=== PATIENT | female | born 1935 | race Caucasian/White ===

== ENCOUNTER 2016-12-16 21:12 | Observation (INO) | payer MEDICARE, MEDICAID ==
[2016-12-16 21:49] LABS: Hematocrit 37 % (35-47); Hemoglobin 12.6 g/dl (12.0-16.0); Mean Corpuscular HGB Conc 34 g/dl (31-36); Mean Corpuscular Hemoglobin 31 pg (27-31); Mean Corpuscular Volume 92 fL (80-97); Mean Platelet Volume 8 um3 (7.4-10.4); Red Blood Count 4.03 10^6/ul (4.0-5.4); Red Cell Distribution Width 14 % (10.5-15); White Blood Count 9.9 10^3/ul (3.5-10.8)
[2016-12-16] MEDS ORDERED: Morphine INJ* 4 MG/ML 1 ML SYRINGE IV ONE (22:00)
[2016-12-16] MEDS ORDERED: NS 0.9% 1000 ML* 1,000 ML IV ONE (22:00)
[2016-12-16] MEDS ORDERED: Ondansetron INJ* 2 MG/ML VIAL IV ONE (22:00)
[2016-12-16] MEDS ORDERED: Acetaminophen TAB* 325 MG PO ONE (22:00)
[2016-12-16 22:03] LABS: ALT 9 U/L (7-52); AST 22 U/L (13-39); Albumin 4.1 g/dL (3.2-5.2); Alkaline Phosphatase 73 U/L (34-104); Anion Gap 9 mmol/L (2-11); Blood Urea Nitrogen 20 mg/dL (6-24); CO2 Carbon Dioxide 28 mmol/L (22-32); Calcium 9.4 mg/dL (8.6-10.3); Chloride 100 mmol/L (101-111); EGFR African American 105.5 (>60); EGFR Non-African American 82.1 (>60); Globulin 3.4 g/dL (2-4); Glucose 102 mg/dL (70-100); Potassium 4.2 mmol/L (3.5-5.0); Sodium 137 mmol/L (133-145); Total Protein 7.5 g/dL (6.4-8.9)
[2016-12-16 22:04] LABS: Troponin I 0.03 ng/mL (<0.04)
--- NOTE | 2016-12-16 22:15 | RAD ---
INDICATION: Syncope COMPARISON: None TECHNIQUE: An AP portable view obtained at 2205 hours is submitted. FINDINGS: Bones/Soft Tissues: There are no acute bony findings. Cardiomediastinal: The cardiomediastinal silhouette is normal. Lungs: There is a right basilar infiltrate or atelectasis. There may be minimal atelectatic change left lung base.. Pleura: There are no pleural effusions. Other: None IMPRESSION: MILD BIBASILAR LUNG CHANGES RIGHT GREATER LEFT WITH A SUSPECTED SMALL RIGHT-SIDED EFFUSION.
[2016-12-16 22:18] LABS: Lipase < 10 U/L (11.0-82.0)
[2016-12-16] MEDS ORDERED: Iohexol 350* (CONTRAST) 500 ML MDV IV ONE (22:30)
--- NOTE | 2016-12-16 22:43 | RAD ---
INDICATION: Syncope COMPARISON: None TECHNIQUE: Noncontrast axial source images were acquired from the skull base to the vertex. FINDINGS: Ventricles/sulci: The ventricles and cisterns are normal in size and configuration for age. Brain parenchyma: There is no focal parenchymal finding, evidence of intracranial mass, or intracranial mass effect. Intracranial hemorrhage:None. Extra-axial spaces: There are no abnormal extra axial fluid collections or evidence of extra-axial mass. Calvarium: There is no calvarial fracture or other calvarial abnormality. Scalp: There is no evidence of scalp or extracalvarial soft tissue abnormality. Paranasal sinuses/mastoid: There is right-sided sphenoid sinusitis. There is opacification of one of the right ethmoid air cells.. Other: None. IMPRESSION: NO ACUTE INTRACRANIAL FINDINGS
--- NOTE | 2016-12-16 23:06 | RAD ---
INDICATION: Chest and back pain. Evaluate aorta COMPARISON: None TECHNIQUE: Axial source images were obtained from the thoracic inlet to the symphysis pubis following administration of oral and intravenous contrast. 1 mL Omnipaque 300 was utilized. Coronal and sagittal reconstructed images were acquired. CHEST FINDINGS: Neck/thyroid: The visualized neck to include the thyroid appear normal. Chest wall: There are no acute abnormalities of the bony thorax or chest wall. There is no supraclavicular, infraclavicular, or axillary lymphadenopathy. Lungs : There are no pulmonary parenchymal masses or infiltrates. The pulmonary interstitium appears normal. There are no endobronchial lesions. Cardiomediastinal structures: The heart is normal in size. There is no pericardial effusion. There is no evidence of aortic aneurysm or dissection. The pulmonary vessels appear normal. There is no evidence of pulmonary embolism. Evaluation of the lower lobes, however, somewhat limited due to breathing motion artifact There is no mediastinal or hilar adenopathy. The esophagus appears normal. Pleura : There are no pleural-based masses or effusions. ABDOMINAL/PELVIC FINDINGS: Liver: The liver is normal in size. There are no masses identified on early arterial phase enhanced images. There is no ductal dilatation. Gallbladder: There are no calcified gallstones. There is no evidence of wall thickening or pericholecystic fluid. Spleen: The spleen is normal in size. The early phase enhancement pattern is normal There are no masses. Pancreas: There is no evidence of pancreatic mass or ductal dilatation. Adrenal glands: There is no evidence of adrenal mass. Kidneys: The kidneys are normal in size and position. There are prompt nephrograms and there is prompt excretion bilaterally. There are bilateral parapelvic cysts and there is a left-sided renal cortical cysts measuring 3.3 cm. There is no evidence of nephrolithiasis. Adenopathy: There is no evidence of adenopathy by size criteria. Fluid collections: There are no free or localized fluid collections. Vessels: The abdominal aorta is tortuous. There are mild intimal calcifications. There is no evidence of aneurysm or dissection. The visceral branches arise satisfactorily. The iliac vessels are normal in caliber. The IVC is unremarkable GI tract: There are no acute CT bowel findings. There is no obstruction. The upper GI tract is unremarkable. There are moderate diverticula of the sigmoid colon but there is no CT evidence of acute diverticulitis. The appendix appears normal. Pelvic organs: The uterus and adnexa appear normal Bladder: There are no bladder masses. Abdominal and pelvic soft tissues: The extraperitoneal abdominal and pelvic soft tissues appear normal.. Osseous structures: There are no acute osseous findings. IMPRESSION: 1. No CT evidence of thoracoabdominal aneurysm or dissection. 2. Bilateral parapelvic cysts and left-sided renal cortical cysts. 3. Scattered diverticula sigmoid colon but no CT evidence of acute diverticulitis
[2016-12-17 00:19] LABS: Urine Bilirubin Negative (Negative); Urine Glucose Negative (Negative); Urine Nitrite Negative (Negative)
[2016-12-17] MEDS ORDERED: Meclizine TAB* 12.5 MG PO PRN (01:50)
[2016-12-17] MEDS ORDERED: Diazepam TAB(*) 5 MG PO PRN (01:50)
[2016-12-17] MEDS: Ondansetron INJ* 2 MG/ML VIAL IV PRN ×3 (03:38→20:31)
[2016-12-17] MEDS: Heparin VIAL(*) 5000 UNITS/ML VIAL (FIVE THOUSAND) SUBCUT SCH ×3 (05:31→20:35)
--- NOTE | 2016-12-17 05:47 | ED ---
I, Oh,Soohyuniun, scribed for Wesley Pringle MD on 12/16/16 at 2157 . HPI Chest Pain - HPI Summary HPI Summary: HPI limited due to language barrier. MANISHA Manzo serving as interpretor at bedside. THis 81 y/o female presents to ED for a syncopal episode yesterday and constant chest tightness. Pt was ambulating to bathroom when she experienced lightheaded dizziness last night 2300 PM. Pt woke up on bathroom floor with vomit on it around 0200 AM. Pt proceeded to n/v x2 again after ambulating back to bed, and pt stayed nauseous for the rest of today. Pt also reports constant, 10/10 chest tightness that radiates to LUE armpit and back. Arm movement makes the chest pain worse. PMHx includes HTN, HLD, and Parkinson Dz. Pt is currently on omeprazole, spironolactone, nitro, diazepam, ASA, amlodipine, trazodone, ramipril, and meclizine. Primary care involves Dr. Reese. Plan of care involving possible admission, CT Brain, chest is discussed with pt (via airport driver) and family members present at bedside, and they are agreeable at this time. - History of Current Complaint Chief Complaint: EDSyncope Time Seen by Provider: 12/16/16 21:33 Hx Obtained From: Patient, Family/Archival Records Clerk, Private Watchman - MANISHA Manzo. Timing: Constant Pain Intensity: 10 Pain Scale Used: 0-10 Numeric Chest Pain Location: Diffuse Chest Pain Radiates: Yes Chest Pain Radiates To:: Back, Arm Character: Tightness Aggravating Factor(s): Movement - Arm movement Alleviating Factor(s): Nothing Associated Signs and Symptoms: Positive: Chest Pain, Dizziness, Nausea, Vomiting. Negative: Fever - Allergy/Home Medications Allergies/Adverse Reactions: Allergies Allergy/AdvReac Type Severity Reaction Status Date / Time No Known Allergies Allergy Verified 12/17/16 01:02 Home Medications: Home Medications Aspirin Low Dose CHEW TAB* [Aspirin Low Dose TAB*] 81 mg PO DAILY 12/17/16 [ History Confirmed 12/17/16] Diazepam TAB(*) [Valium TAB(*)] 5 mg PO Q6H PRN 12/17/16 [History Confirmed ] Meclizine TAB* [Antivert 12.5 TAB*] 25 mg PO TID PRN 12/17/16 [History Confirmed 12/17/16] MinoXIDil TAB* [Loniten TAB*] 40 mg PO BID 12/17/16 [History Confirmed 12/17/16] Omeprazole CAP* [Prilosec CAP* 20 MG] 40 mg PO BID 12/17/16 [History Confirmed 12/17/16] Ramipril CAP* [Altace CAP*] 10 mg PO BID 12/17/16 [History Confirmed 12/17/16] Spironolactone TAB* [Aldactone TAB*] 50 mg PO DAILY 12/17/16 [History Confirmed 12/17/16] amLODIPine TAB* [Norvasc 5 mg TAB*] 10 mg PO BID 12/17/16 [History Confirmed ] traZODone TAB* [Desyrel TAB*] 50 mg PO BEDTIME 12/17/16 [History Confirmed 12/17] PMH/Surg Hx/FS Hx/Imm Hx Cardiovascular History: Reports: Hx Hypercholesterolemia, Hx Hypertension Psychiatric History: Reports: Other Psychiatric Issues/Disorders - Parkinson's disease Infectious Disease History: No Infectious Disease History: Denies: Traveled Outside the [place] in Last 30 Days - Family History Known Family History: Negative: Cardiac Disease, Hypertension, Diabetes - Social History Lives: With Family Alcohol Use: None Hx Substance Use: No Substance Use Type: Reports: None Hx Tobacco Use: No Smoking Status (MU): Never Smoked Tobacco Review of Systems Negative: Fever Positive: Chest Pain - chest tightness Positive: Vomiting, Nausea. Negative: Abdominal Pain Negative: dysuria, hematuria Negative: Arthralgia Negative: Rash Neurological: Other - Positive for dizziness Positive: Syncope. Negative: Headache Negative: Anxious, Depressed All Other Systems Reviewed And Are Negative: Yes Physical Exam - Summary Physical Exam Summary: Constitutional: Well-developed, Well-nourished, Alert. (-) Distressed Skin: Warm, Dry HENT: Normocephalic; Atraumatic Eyes: Conjunctiva normal Neck: Musculoskeletal ROM normal neck. (-) JVD, (-) Stridor, (-) Tracheal deviation Cardio: Rhythm regular, rate normal, Heart sounds normal; Intact distal pulses; The pedal pulses are 2+ and symmetric. Radial pulses are 2+ and symmetric. (-) Murmur Pulmonary/Chest wall: Effort normal. (-) Respiratory distress, (+) Crackle, left lower Abd: Soft, (-) Tenderness, (-) Distension, (-) Guarding, (-) Rebound Musculoskeletal: (-) Edema Lymph: (-) Cervical adenopathy Neuro: Alert, Oriented x3, fine resting tremor at rest. Psych: Mood and affect Normal Triage Information Reviewed: Yes Vital Signs On Initial Exam: Initial Vitals Temp Pulse Resp BP Pulse Ox 99.9 F 88 18 153/60 97 12/16/16 21:16 12/16/16 21:16 12/16/16 21:16 12/16/16 21:16 12/16/16 21:16 Vital Signs Reviewed: Yes Diagnostics - Vital Signs Vital Signs Temp Pulse Resp BP Pulse Ox 12/16/16 21:16 99.9 F 88 18 153/60 97 - Laboratory Result Diagrams: 12/16/16 21:39 12/16/16 21:39 Lab Statement: Any lab studies that have been ordered have been reviewed, and results considered in the medical decision making process. - Radiology CXR Xray Interpretation: Positive (See Comments) - MILD BIBASILAR LUNG CHANGES RIGHT GREATER LEFT WITH A SUSPECTED SMALL RIGHT-SIDED EFFUSION. Radiology Interpretation Completed By: Radiologist - CT CTA Chest/Ab/P CT Interpretation: Positive (See Comments) - 1. No CT evidence of thoracoabdominal aneurysm or dissection. 2. Bilateral parapelvic cysts and left -sided renal cortical cysts. 3. Scattered diverticula sigmoid colon but no CT evidence of acute diverticulitis CT Interpretation Completed By: Radiologist Brain CT Interpretation: No Acute Changes CT Interpretation Completed By: Radiologist - EKG 2127 Cardiac Rate: NL - 93 bpm EKG Rhythm: Sinus Rhythm ST Segment: Normal Re-Evaluation - Re-Evaluation First Eval Re-Evaluation Time: 01:18 Comment: in room to update pt and family members on lab results, imaging results, and UA. Plan of care involving admission is discussed. Chest Pain Course/Dx - Course Assessment/Plan: This 81 y/o female presents to ED for a syncopal episode that started 2300 PM last night and lasted until 0100 AM this morning. Since then pt reports 2x n/v and dizziness. Pt also reports CP. CXR indicates negative in ED. Other CT readings are benign. CP can be due to esophagitis. Elevated temperature indicates possible viral illness. Acute Coronary syndrome considered and r/o. - Diagnoses Provider Diagnoses: Syncope, Chest pain, Nausea with vomiting, unspecified - Provider Notifications Discussed Care Of Patient With: Dr. Bush (Hospitalist) at 0114 AM Time Discussed With Above Provider: 01:14 Instructed by Provider To: Admit As Inpatient Discharge - Discharge Plan Condition: Stable Disposition: ADMITTED TO [facility] Referrals: Belem Reese MD [Primary Care Provider] - The documentation as recorded by the Joey zambrano Soohyun accurately reflects the service I personally performed and the decisions made by , Wesley Pringle MD.
--- NOTE | 2016-12-17 06:15 | HP ---
HISTORY AND PHYSICAL: DATE OF ADMISSION: 12/17/16 PRIMARY CARE PROVIDER: Dr. Reese. BOOT REPAIRER: Dr. Mock. CHIEF COMPLAINT: Syncope and chest pain. HISTORY OF PRESENT ILLNESS: Ms. Pate is a 81-year-old primarily Togolese- speaking female, who has a history of very difficult to control hypertension, possibly Parkinson's disease, who presents to the emergency room with complaints of syncope and chest pain. The bulk of the history is obtained via translation from the patient's [id number]. The patient reportedly got up to go to the bathroom at approximately 11 p.m. on the evening of 12/15/16. The patient stated that she needed to hold herself up at the sink. The next thing she remembers is waking up at approximately 2 a.m. with vomit all around her. The patient also noted at that time that she had significant chest pain that was felt across her lower ribs like a band. The patient had no associated shortness of breath or sweating. The patient was ultimately able to get herself up off the floor and into bed. The patient continued to have chest pain. The patient, after getting into bed, continued to have vomiting. The patient carries a history of vertigo and very often will feel dizzy with turning her head in certain directions. The patient stated that she did not feel well on the evening of 12/15/16. She has not vomited since the refrigeration engineering teacher of 12/16/16 PAST MEDICAL HISTORY: 1. Hypertension. 2. Parkinson's. 3. Vertigo. PAST SURGICAL HISTORY: None. ALLERGIES: None. MEDICATIONS: 1. Spironolactone 50 mg p.o. daily. 2. Amlodipine 10 mg p.o. b.i.d. 3. Valium 5 mg p.o. q.6 hours p.r.n. vertigo. 4. Minoxidil 40 mg p.o. b.i.d. 5. Omeprazole 40 mg p.o. b.i.d. 6. Ramipril 10 mg p.o. b.i.d. 7. Trazodone 50 mg p.o. q.h.s. 8. Aspirin 81 mg p.o. daily. 9. Meclizine 25 mg p.o. t.i.d. p.r.n. dizziness. 10. Clonidine, unknown dose. 11. Labetalol, unknown dose. FAMILY HISTORY: Mom of CVA, she had significant hypertension. Dad in World War II. SOCIAL HISTORY: The patient is a nonsmoker. She does not drink alcohol. She lives with her . She has 3 children. REVIEW OF SYSTEMS: A complete 11-system review of systems was obtained. Pertinent positives and negatives are as per HPI, and otherwise the patient does complain of anorexia x1 day. PHYSICAL EXAMINATION GENERAL: The patient is a well-developed, elderly, obese female, lying in bed, in no acute distress. VITAL SIGNS: Blood pressure 135/55, pulse 80, respirations 20, temp 99.9, O2 sat 93% on room air. HEENT: Pupils are equal, they are round, they react to light. Extraocular muscles are intact. Oropharynx is clear. Oral mucosa is moist. The patient does wear upper dentures. NECK: There is no submandibular, cervical, or supraclavicular adenopathy. Thyroid is not enlarged. No thyroid nodules are noted. PULMONARY: Lungs are clear to auscultation bilaterally. CARDIAC: Normal S1 and S2. Heart rate is regular. I do not appreciate any murmurs. ABDOMEN: Bowel sounds are present. Abdomen is soft, nontender, nondistended. MUSCULOSKELETAL: There is no cyanosis or clubbing of the digits. There is full active range of motion of all 4 extremities. SKIN: Warm and dry. There are no rashes. NEURO: Cranial nerves II through XII are grossly intact. Sensation is intact to light touch throughout. Strength is 5/5 and symmetric in both upper and lower extremities bilaterally. PSYCH: The patient is alert. She communicates primarily in Togolese. DIAGNOSTIC STUDIES/LAB DATA: WBC 9.9, hemoglobin 12.6, hematocrit 37, platelets 280. INR 1. Sodium 137, potassium 4.2, chloride 100, CO2 of 28, BUN 20, creatinine 0.69, glucose 102, lactic acid 1.0. Calcium 9.4, bilirubin 0.7, AST 22, ALT 9, alk phos 73. Troponin 0.03. Albumin 4.1. Lipase less than 10. Urinalysis revealed specific gravity of 1.040, trace ketones, and otherwise negative. ASSESSMENT AND PLAN: Ms. Pate is a 81-year-old female, with very difficult to control hypertension, possibly Parkinson's, and history of recurrent episodes of chest pain, followed by intense vomiting that have been worked up by her primary pressing machine operator without clear answer, who presents to the emergency room after sustaining a syncopal episode on the refrigeration engineering teacher of 12/16/16, followed by the development of chest pain and vomiting. 1. Syncope. The etiology of this is not completely clear. The patient does carry a history of vertigo and her [id number] states that when she turns her head in certain directions she does become very dizzy. It is unclear if the patient felt as if she was going to pass out prior to going down. The patient will be monitored on telemetry. She will have a transthoracic echocardiogram. She may benefit from an event monitor if this has not been performed by her primary pressing machine operator. 2. Chest pain. The patient will be ruled out with serial troponins and EKGs. Her [id number] states that she had a stress test approximately 2 to [address] Mock. I believe that getting records from Dr. Mock would be more beneficial than repeating all of the testing here at this point. If she has not had a recent stress test, this should be considered. 3. Hypertension. Currently, the patient's blood pressure is actually quite good. Her [id number] is shocked how good her blood pressure is, stating that it is never that low. The patient will be maintained on her usual home medication regimen; however, she does not know the doses of her clonidine or labetalol. Medication list will need to be obtained to determine what doses she takes. 4. Gastroesophageal reflux disease. The patient will continue on her usual dose of omeprazole. 5. DVT prophylaxis. According to the Adult Thrombosis Prophylaxis Risk Factor Assessment Guide, the patient has a total risk factor score of 4, making her high risk. She will be placed on heparin 5000 units subcutaneous q.8 hours. 6. Code status is full for now, though when further family is here we will need to discuss code status as she may have indicated that she would not want prolonged CPR. TIME SPENT: Sixty-five minutes were spent admitting this patient, of which greater than half was spent [id number] with the patient and her daughter-in- law, reviewing her history and performing physical exam. CC: Dr. Reese; Dr. Mock* [id number]/[facility] #: [id number] MIKIE
[2016-12-17] MEDS: Omeprazole CAP* 20 MG PO SCH ×2 (09:45→20:39)
[2016-12-17] MEDS: amLODIPine TAB* 5 MG PO SCH ×2 (09:45→20:36)
[2016-12-17] MEDS: Spironolactone TAB* 25 MG PO SCH (09:45)
[2016-12-17] MEDS: MinoXIDil TAB* 10 MG TAB PO SCH ×2 (09:45→20:37)
[2016-12-17] MEDS: Aspirin Low Dose CHEW TAB* 81 MG PO SCH (09:45)
[2016-12-17] MEDS: Ramipril CAP* 10 MG PO SCH ×2 (09:45→20:41)
--- NOTE | 2016-12-17 10:35 | ECHO ---
Patient: JOSEPH DICKENS [facility] Rec#: [id number] : 1935 Date: 12/17/2016 Age: 81y Height: 154.9 cm / 61.0 in Weight: 81.7 kg / 180.1 lbs Sex: F BSA: 1.8 Room#: 432 Admit Date#: 12/17/2016 Type: Inpatient Referring: Gissel Bush DO Reading: Carlito Rincon MD Digital Computer Operator: Janae Hamilton RN RDCS CC: Belem Reese MD Transthoracic Echocardiogram Indication: Syncope BP: 169/67 HR: 80 Rhythm: NSR with PVCs Findings History: HTN, possible Parkinson's disease Technical Comments: The study quality is fair. The study is technically limited due to patient body habitus. Completed at 0935. Left Ventricle: The left ventricular chamber size is normal. Mild concentric left ventricular hypertrophy is observed. Global left ventricular wall motion and contractility are within normal limits. The left ventricle appears hyperdynamic. The estimated ejection fraction is greater than 65%. There is no consistent Doppler evidence of clinically significant diastolic dysfunction. Left Atrium: The left atrium is mildly dilated. Right Ventricle: The right ventricular chamber size and systolic function are within normal limits. Right Atrium: The right atrium is mildly dilated. Aortic Valve: The aortic valve structure is not well visualized. There is no evidence of aortic regurgitation. There is mild aortic stenosis. The mean gradient of the aortic valve is 11 mmHg. The peak instantaneous gradient of the aortic valve is 20 mmHg. The aortic valve area, by peak velocities, is calculated at 1.8 cm2. The aortic valve area, by VTI's, is calculated at 2 cm2. Mitral Valve: The mitral valve leaflets are mildly thickened. There is a trace of mitral regurgitation. There is no evidence of mitral stenosis. Tricuspid Valve: The tricuspid valve leaflets are normal. There is mild tricuspid regurgitation. There is evidence of moderate to severe pulmonary hypertension. Pulmonic Valve: The pulmonic valve structure is not well visualized. There is a trace pulmonic regurgitation. There is no pulmonic stenosis. Pericardium: There is no significant pericardial effusion. A pericardial fat pad is visualized. Aorta: There is no dilatation of the ascending aorta. There is no dilatation of the aortic arch. There is no dilation of the aortic root. Pulmonary Artery: The main pulmonary artery is not well visualized. Venous: The venous system is not well visualized. The inferior vena cava is not visualized. Conclusions Global left ventricular wall motion and contractility are within normal limits. The estimated ejection fraction is greater than 65%. There is no consistent Doppler evidence of clinically significant diastolic dysfunction. There is no evidence of aortic regurgitation. There is mild aortic stenosis. There is a trace of mitral regurgitation. There is mild tricuspid regurgitation. There is evidence of moderate to severe pulmonary hypertension. There is no significant pericardial effusion. There is no dilatation of the ascending aorta. Measurements Name Value Normal Range RVDdMajor (2D) 3.6 cm (2.2 - 4.4) RAd ISD 4CH 5.5 cm (3.4 - 4.9) RA (A4C)W 4.2 cm (2.9 - 4.6) IVSd (2D) 1.2 cm (0.6 - 1) LVPWd (2D) 1.2 cm (0.6 - 1) LVIDd (2D) 3.8 cm (3.6 - 5.4) LVIDs (2D) 2.2 cm - LV FS (2D) 42 % (25 - 45) Aortic Annulus 1.7 cm (1.4 - 2.6) Ao root diameter (2D) 2.5 cm (2.1 - 3.5) Ascending Ao 3.2 cm (2.1 - 3.4) Aortic arch 2.2 cm (1.8 - 3.4) LA dimension (AP) 2D 3.6 cm (2.3 - 3.8) LAd ISD 4CH 5.5 cm (2.9 - 5.3) LA ISD 4CH W 4 cm (2.5 - 4.5) Name Value Normal Range LA ESV SP 4CH (A/L) 63 ml - LA ESV SP 2CH (A/L) 60 ml - LA ESV BP (A/L) 62 ml - LA ESV BP (A/L) index 35 ml/m2 - LA ESV SP 4CH (MOD) 60 ml - LA ESV SP 2CH (MOD) 57 ml - Name Value Normal Range MV E-wave Vmax 1.1 m/sec - MV deceleration time 241 msec - MV A-wave Vmax 1.1 m/sec - MV E:A ratio 1 ratio - LV septal e' Vmax 0.08 m/sec - LV lateral e' Vmax 0.09 m/sec - LV E:e' septal ratio 13.8 ratio - LV E:e' lateral ratio 12.2 ratio - Name Value Normal Range AV Vmax 2.3 m/sec - AV VTI 49.1 cm - AV peak gradient 20 mmHg - AV mean gradient 11 mmHg - LVOT diameter 1.9 cm - LVOT Vmax 1.5 m/sec - LVOT VTI 33.9 cm - LVOT peak gradient 9 mmHg - LVOT mean gradient 6 mmHg - DOI (VTI) 0.69 ratio - DOI (Vmax) 0.65 ratio - TEOFILO (continuity Vmax) 1.8 cm2 - TEOFILO (continuity VTI) 2 cm2 - JOE Vmax 0.72 m/sec - Name Value Normal Range TR Vmax 3.6 m/sec - TR peak gradient 52 mmHg - RAP 8 mmHg - RVSP 60 mmHg - Name Value Normal Range PV Vmax 1.2 m/sec -
[2016-12-17] MEDS ORDERED: PROCHLORPERAZINE INJ 5 MG/ML 2 ML VIAL IV PRN (13:50)
--- NOTE | 2016-12-17 14:24 | PN ---
Hospitalist Progress Note HOSPITALIST ADDENDUM Patient seen and examined at bedside. Her son, Naresh, acts as police pilot. She feels a little better today, but still has some chest pain and nausea. No further episodes of vomiting. Tolerating diet well. Records from [place] reviewed: her BP is better controlled now, echo is unchanged from prior, and stress test was negative in July. She has no new EKG changes and serial troponins are negative. Suspect her syncopal episode was vasovagal in the setting of nausea and vomiting. Suspect viral gastroenteritis and GERD as culprits. As she's still symptomatic, will continue PPI and add Compazine. Anticipate d/c in AM.
[2016-12-17] MEDS: Acetaminophen TAB* 325 MG PO PRN (20:51)
[2016-12-17] MEDS ORDERED: traZODone TAB* 50 MG TAB PO SCH (21:00)
[2016-12-18] MEDS: Heparin VIAL(*) 5000 UNITS/ML VIAL (FIVE THOUSAND) SUBCUT SCH ×2 (05:16→13:19)
[2016-12-18] MEDS: Ondansetron INJ* 2 MG/ML VIAL IV PRN (08:09)
[2016-12-18] MEDS: Omeprazole CAP* 20 MG PO SCH (08:11)
[2016-12-18] MEDS: Acetaminophen TAB* 325 MG PO PRN (08:12)
[2016-12-18] MEDS: amLODIPine TAB* 5 MG PO SCH (08:12)
[2016-12-18] MEDS: Spironolactone TAB* 25 MG PO SCH (08:12)
[2016-12-18] MEDS: MinoXIDil TAB* 10 MG TAB PO SCH (08:12)
[2016-12-18] MEDS: Ramipril CAP* 10 MG PO SCH (08:12)
[2016-12-18] MEDS: Aspirin Low Dose CHEW TAB* 81 MG PO SCH (08:12)
[2016-12-18] MEDS ORDERED: Morphine INJ* 2 MG/ML 1 ML SYRINGE IV PRN (08:24)
[2016-12-18] MEDS ORDERED: Atropine SYRINGE* 0.1 MG/ML 10 ML SYRINGE (1 MG) ONE (10:41)
[2016-12-18] MEDS ORDERED: DOBUTamine 2000 MCG/ML IVPREMX 500 MG/250 ML BAG IV ONE (10:41)
[2016-12-18] MEDS ORDERED: Metoprolol Tartrate IV* 1 MG/ML 5 ML VIAL ONE (10:42)
[2016-12-18 12:02] VITALS: BP 111/46
--- NOTE | 2016-12-19 01:59 | DS ---
DISCHARGE SUMMARY: DATE OF ADMISSION: 12/17/16 DATE OF DISCHARGE: 12/18/16 DISCHARGE DIAGNOSES: 1. Chest pain, acute coronary syndrome ruled out, likely gastrointestinal in nature. 2. Vasovagal syncope. SECONDARY DIAGNOSES: 1. Hypertension. 2. Parkinson disease. 3. Vertigo. MEDICATIONS: As follows: 1. Amlodipine 10 mg p.o. b.i.d. 2. Aspirin 81 mg p.o. daily. 3. Atorvastatin 40 mg p.o. daily. 4. Calcium carbonate and vitamin D 600-400mg 1 tablet p.o. b.i.d. 5. Chlorthalidone 25 mg p.o. daily. 6. Clonidine patch 0.3mg topical q7 days. 7. Valium 5 mg p.o. q.6 hours p.r.n. vertigo. 8. Labetalol 300mg p.o. b.i.d. 9. Meclizine 25 mg p.o. t.i.d. as needed vertigo. 10. Minoxidil 40 mg p.o. b.i.d. 11. Omeprazole 40 mg p.o. b.i.d. 12. Prochlorperazine 5 mg p.o. q.6 hours p.r.n. nausea (a new medication). 13. Ramipril 10 mg p.o. b.i.d. 14. Aldactone 50 mg p.o. daily. 15. Sucralfate 1 g p.o. before meals and at bedtime (this is a new medication). 16. Trazodone 50 mg p.o. at bedtime. HOSPITAL COURSE: Ms. Pate is a 81-year-old lady with a past medical history as stated above that presented to the emergency room with complaints of chest pain and syncopal episode. The night prior to admission, the patient went to the bathroom with complaints of dizziness and nausea. She has vomited and the next thing she remembers is waking up on the floor, but this was approximately 3 hours later. She had chest pain and she was able to get herself up and go back to bed, but she continued to have vomiting during the night and dizziness and this prompted her emergency room visit. For more details of her presentation, I refer you to her history and physical by Dr. Bush. The patient was admitted to the medical floor where she had no significant arrhythmias. Serial troponins were negative and a transthoracic echocardiogram that showed global left ventricular wall motion and contractility within normal limits. Ejection fraction was greater than 65%. No Doppler evidence of clinically significant diastolic dysfunction. Mild . Mild TR. Moderate to severe pulmonary hypertension. No significant pericardial effusion. The patient also had a CT of the brain without contrast that showed no acute abnormalities and a CT of the chest, abdomen and pelvis that showed no evidence of pulmonary embolism, no thoracoabdominal aneurysm or dissection. Bilateral parapelvic cyst and left-sided renal cortical cyst, scattered diverticula in sigmoid colon, but no evidence of acute diverticulitis. Records were obtained from her snagger (Dr. Mock). The patient had a dobutamine stress echo in July 2016 that showed resting hypertension, but the test was negative for ischemia. She had a renal ultrasound in 2013 that showed parapelvic and renal cysts and an echocardiogram in 2012 that showed the ejection fraction was 55% to 60%, but at that time, she had no pulmonary hypertension. On her visit with Dr. Mock on 11/28/16, he felt that the patient's blood pressure was better controlled. She had a fairly thorough workup for secondary causes including renal artery ultrasound, which was negative for renal artery stenosis as well as serum renin aldosterone and cortisol levels as well as normal plasma catecholamines. He felt that her hypertension can have a component of white coat effect and anxiety relation as despite the report of elevated blood pressures at home and high measured blood pressures in the office , she does not have evidence of LVH or hypertensive nephropathy. His recommendation was to continue medications and to have blood pressure monitoring as outpatient. In reviewing her case, I believe the patient probably has reflux and may be developed a viral gastroenteritis that provoked the worsening of her nausea and vomiting. I believe her syncopal episode was vasovagal associated with her GI symptoms. The patient does not speak Syrian, but her son, , acted as inspector tester sorter and he is able to tell me that the patient has complaints of heartburn and that usually when she feels the nausea, so I suspect she may have gastroesophageal reflux. As the patient had persistent chest pain and it has been almost 6 months that she had her stress test, she underwent another dobutamine echo stress that was normal with no areas of ischemia. So, the impression is that her chest pain is likely GI in nature. The patient was continued on omeprazole and sucralfate was added. The patient is felt to be stable to be discharged home today and she will need to follow up with Dr. Reese. If her GI symptoms persist, she may benefit of a GI evaluation. The patient's echo done on this admission reveals moderate to severe pulmonary hypertension and this appears to be new finding from 2012. A CT of the chest was negative for PE this admission, I believe her pulmonary hypertension should be followed by her PCP. PHYSICAL EXAMINATION: Vital Signs: Temperature 98.3, heart rate is 85, respiratory rate is 16, oxygen saturation 92% on room air, blood pressure is 111 /46. General: The patient is a pleasant, obese lady lying in bed in no acute distress. CVS: Normal S1 and S2. Regular rate and rhythm. Chest: Breath sounds bilaterally no added sounds. Abdomen is obese, soft. Bowel sounds present. Extremities: No edema. Neuro: She is alert, awake and oriented x3. Able to move all 4 extremities. DIET: Low salt diet. ACTIVITY: As tolerated. DISPOSITION: To home. STATUS WHILE IN THE HOSPITAL: Observation. Please keep in mind, this is a summarized version of this patient's hospital stay. If you need more information, please feel free to call me at [phone] or please obtain the full medical records. TIME SPENT: Approximately 45 minutes were spent to complete this discharge. CC: Belem Reese MD, Chen; Teho Mock MD, Chen* [id number]/CPS #: [id number] MTDD
== END 2016-12-18 14:10 | disposition home or self-care (01) ==
LOC: ED 21:12 → MEDTELE 12-17 02:33
PROVIDERS: ADMIT Hospitalist; ATTEND Internal Medicine
DX: R07.9 Chest pain, unspecified (principal); R55 Syncope and collapse; I10 Essential (primary) hypertension; K21.9 Gastro-esophageal reflux disease without esophagitis; R42 Dizziness and giddiness; R11.2 Nausea with vomiting, unspecified; K57.92 Diverticulitis of intestine, part unspecified, without perforation or abscess without bleeding; N28.1 Cyst of kidney, acquired; G20 Parkinson's disease; Z79.82 Long term (current) use of aspirin
CPT/HCPCS: 36415; 70450; 71010; 71275; 74174; 80053; 81003; 83605; 83690; 84484; 85025; 85610; 85730; 87040; 93005; 93306; 93350; 96374; 96375; 99283; A9270-GY; G0378; J0461; J1250; J1644; J2270; J2405; Q9967

== ENCOUNTER 2018-06-13 21:41 | Emergency (ER) | payer MEDICARE, MEDICAID ==
--- NOTE | 2018-06-13 22:03 | ED ---
Lower Extremity - HPI Summary HPI Summary: This patient is a 82 year old F presenting to [facility] accompanied by her niece with a chief complaint of pain in her right heel since 2-3 weeks ago. The Patient cannot stand on her right foot. She was previously seen at [facility] and is awaiting results. The patient denies traumatic injury to the affected area. She rates the pain 10/10 in severity, and has been taking medication for the pain. - History of Current Complaint Chief Complaint: EDExtremityLower Stated Complaint: RT FT PAIN Time Seen by Provider: 06/13/18 21:50 Hx Obtained From: Patient, Family/Employment Coach Onset/Duration: Weeks Severity Initially: Severe Severity Currently: Severe Pain Intensity: 10 Pain Scale Used: 0-10 Numeric Timing: Constant Location: Is Discrete @ - Right heel Associated Signs And Symptoms: Positive: Negative Aggravating Factor(s): Standing, Ambulation, Weight Bearing Alleviating Factor(s): Nothing Able to Bear Weight: No - Risk Factors Gout Risk Factors: Hypertension - Allergies/Home Medications Allergies/Adverse Reactions: Allergies Allergy/AdvReac Type Severity Reaction Status Date / Time No Known Allergies Allergy Verified 12/17/16 01:02 PMH/Surg Hx/FS Hx/Imm Hx Endocrine/Hematology History: Denies: Hx Diabetes Cardiovascular History: Reports: Hx Angina, Hx Hypercholesterolemia, Hx Hypertension Respiratory History: Denies: Hx Asthma, Hx Chronic Obstructive Pulmonary Disease (COPD) Sensory History: Denies: Hx Contacts or Glasses, Hx Hearing Aid Opthamlomology History: Denies: Hx Contacts or Glasses Neurological History: Reports: Other Neuro Impairments/Disorders - Parkinson's Psychiatric History: Reports: Other Psychiatric Issues/Disorders - Parkinson's disease Infectious Disease History: No Infectious Disease History: Denies: Traveled Outside the [place] in Last 30 Days - Family History Known Family History: Negative: Cardiac Disease, Hypertension, Diabetes - Social History Alcohol Use: None Hx Substance Use: No Substance Use Type: Reports: None Hx Tobacco Use: No Smoking Status (MU): Never Smoked Tobacco Review of Systems Negative: Fever Positive: Other - Pain in right heel All Other Systems Reviewed And Are Negative: Yes Physical Exam - Summary Physical Exam Summary: Appearance: Well-appearing, Well-nourished, lying in bed comfortable Skin: Warm, dry, no obvious rash Eyes: sclera anicteric, no conjunctival pallor ENT: mucous membranes moist Neck: deferred Respiratory: No signs of respiratory distress Cardiovascular: Appears well perfused, pulses are nml Abdomen: deferred Musculoskeletal: Moving all 4 extremities without obvious discomfort. No pain squeezing the calf. Reynolds squeeze test normal. Tenderness in the plantar fascia on the heel. No tenderness or swelling on the Achilles tendon. Neurological: Awake and alert, mentation is normal, speech is fluent and appropriate Psychiatric: affect is normal, does not appear anxious or depressed Triage Information Reviewed: Yes Vital Signs On Initial Exam: Initial Vitals Temp Pulse Resp BP Pulse Ox 97.7 F 70 20 174/104 100 06/13/18 21:43 06/13/18 21:43 06/13/18 21:43 06/13/18 21:43 06/13/18 21:43 Vital Signs Reviewed: Yes Diagnostics - Vital Signs Vital Signs Temp Pulse Resp BP Pulse Ox 06/13/18 21:43 97.7 F 70 20 174/104 100 - Laboratory Lab Statement: Any lab studies that have been ordered have been reviewed, and results considered in the medical decision making process. - Radiology XR right foot/ankle Radiology Interpretation Completed By: ED Physician Summary of Radiographic Findings: Unremarkable. Pending radiologist official interpretation. Lower Extremity Course/Dx - Course Course Of Treatment: This patient is a 82 year old F presenting to [facility] accompanied by her niece with a chief complaint of pain in her right heel since 2-3 weeks ago. Examination revealed tenderness in the plantar facsia of the heel. XR of the heel was unremarkable. Plan for treatment and discharge was discussed with the patient and the patient was agreeable with this plan. - Diagnoses Provider Diagnoses: Plantar fasciitis of right foot Discharge - Sign-Out/Discharge Documenting (check all that apply): Patient Departure - Discharge - Discharge Plan Condition: Stable Disposition: HOME Patient Education Materials: Plantar Fasciitis Exercises (GEN), Plantar Fasciitis (ED) Referrals: Wilson Mendoza MD [Medical Doctor] - - Billing Disposition and Condition Condition: STABLE Disposition: Home - Attestation Statements Document Initiated by Scribe: Yes Documenting Scribe: Wilson Austin Provider For Whom Yvetteibe is Documenting (Include Credential): Fish Funk MD Scribe Attestation: Wilson Barton, scribed for Fish Funk MD on 06/13/18 at 2254. Scribe Documentation Reviewed: Yes Provider Attestation: The documentation as recorded by the scribe, Wilson Austin accurately reflects the service I personally performed and the decisions made by me, Fish Funk MD
[2018-06-13 22:53] VITALS: BP 178/74
== END 2018-06-13 22:52 | disposition home or self-care (01) ==
LOC: ED 21:41
DX: M72.2 Plantar fascial fibromatosis (principal)
CPT/HCPCS: 99282

== ENCOUNTER 2018-12-22 17:10 | Emergency (ER) | payer MEDICARE, MEDICAID ==
[2018-12-22] MEDS ORDERED: hydrALAZINE IV* 20 MG/ML VIAL IV SLOW PU ONE (17:47)
--- NOTE | 2018-12-22 17:55 | ED ---
Hypertension - HPI Summary HPI Summary: Pt is an 83 y/o F presenting to the ED brought in by EMS for hypertension. Per the pts son who is translating, she usually has high blood pressure but today it is higher than usual, and she has been nauseous and vomiting since approximately 1000 this morning. She reports a slight headache. She denies CP, SOB, abd pain, and LE edema. - History of Current Complaint Chief Complaint: EDHypertension Stated Complaint: HYPERTENSION/WEAKNESS PER EMS Time Seen by Provider: 12/22/18 17:33 Hx Obtained From: Patient, Family/Hand Etcher - son Onset/Duration: Started Hours Ago, Still Present Timing: Constant, Lasting Hours Aggravating Factor(s): Nothing Alleviating Factor(s): Nothing Associated Signs & Symptoms: Headaches, Other: - N/V - Allergies/Home Medications Allergies/Adverse Reactions: Allergies Allergy/AdvReac Type Severity Reaction Status Date / Time No Known Allergies Allergy Verified 12/17/16 01:02 Home Medications: Home Medications Labetalol TAB* [Trandate TAB*] 300 mg PO TID 12/22/18 [History Confirmed ] Nitroglycerin TAB 0.4 MG* 0.4 mg SL . NEEDED PRN 12/22/18 [History Confirmed 12/22/18] Ondansetron TAB* [Zofran 4 MG Tab*] 8 mg PO Q6H PRN 12/22/18 [History Confirmed 12/22/18] Primidone TAB(*) [Mysoline TAB(*)] 50 mg PO BEDTIME 12/22/18 [History Confirmed 12/22/18] Ramipril CAP* [Altace CAP*] 10 mg PO BID 12/22/18 [History Confirmed 12/22/18] Sertraline* [Zoloft*] 50 mg PO DAILY 12/22/18 [History Confirmed 12/22/18] Topiramate TAB(*) [Topamax 25 MG tab] 25 mg PO BID 12/22/18 [History Confirmed 12/22/18] clonazePAM TAB(*) [KlonoPIN TAB(*)] 0.25 mg PO Q8H PRN 12/22/18 [History Confirmed 12/22/18] PMH/Surg Hx/FS Hx/Imm Hx Previously Healthy: No Endocrine/Hematology History: Denies: Hx Diabetes Cardiovascular History: Reports: Hx Angina, Hx Hypercholesterolemia, Hx Hypertension Respiratory History: Denies: Hx Asthma, Hx Chronic Obstructive Pulmonary Disease (COPD) Sensory History: Denies: Hx Contacts or Glasses, Hx Hearing Aid Opthamlomology History: Denies: Hx Contacts or Glasses Neurological History: Reports: Other Neuro Impairments/Disorders - Parkinson's Psychiatric History: Reports: Other Psychiatric Issues/Disorders - Parkinson's disease Infectious Disease History: No Infectious Disease History: Denies: Traveled Outside the [place] in Last 30 Days - Family History Known Family History: Negative: Cardiac Disease, Hypertension, Diabetes - Social History Alcohol Use: None Hx Substance Use: No Substance Use Type: Reports: None Hx Tobacco Use: No Smoking Status (MU): Never Smoked Tobacco Review of Systems Negative: Chest Pain Negative: Shortness Of Breath Positive: Vomiting, Nausea. Negative: Abdominal Pain Negative: Edema Positive: Headache All Other Systems Reviewed And Are Negative: Yes Physical Exam - Summary Physical Exam Summary: Appearance: Well appearing, no pain distress Skin: warm, dry, reflects adequate perfusion Head/face: normal Eyes: EOMI, MIKE ENT: normal Neck: supple, non-tender Respiratory: CTA, breath sounds present Cardiovascular: RRR, pulses symmetrical Abdomen: non-tender, soft Musculoskeletal: normal, strength/ROM intact Neuro: normal, sensory motor intact, A&Ox3 Triage Information Reviewed: Yes Vital Signs On Initial Exam: Initial Vitals Temp Pulse Resp BP Pulse Ox 99.2 F 86 18 236/104 97 12/22/18 17:16 12/22/18 17:16 12/22/18 17:16 12/22/18 17:16 12/22/18 17:16 Vital Signs Reviewed: Yes Diagnostics - Vital Signs Vital Signs Temp Pulse Resp BP Pulse Ox 12/22/18 17:16 99.2 F 86 18 236/104 97 - Laboratory Result Diagrams: 12/22/18 18:19 12/22/18 18:19 Lab Statement: Any lab studies that have been ordered have been reviewed, and results considered in the medical decision making process. - Radiology CXR Radiology Interpretation Completed By: ED Physician Summary of Radiographic Findings: No acute process. Pending official radiology report. - CT Brain CT CT Interpretation Completed By: Radiologist Summary of CT Findings: No acute intracranial abnormality. ED physician has reviewed this report. - EKG 1752 Cardiac Rate: NL - 83bpm EKG Rhythm: Sinus Rhythm ST Segment: Normal Ectopy: None Summary of EKG Findings: EKG at 1752 shows NSR at 83bpm with no STEMI. Hypertension Course/Dx - Course Course Of Treatment: Pt is an 83 y/o F presenting to the ED brought in by EMS for hypertension. She reports N/V since approximately 1000 this morning, as well as a slight headache. She denies CP, SOB, abd pain, and LE edema. EKG at 1752 shows NSR at 83bpm with no STEMI. Brain CT shows no acute intracranial abnormality. CXR shows no acute process, pending official radiology report. Pt will be d/c'ed with a dx of HTN with strict return precautions. She is stable and agreeable with this plan. - Diagnoses Differential Diagnosis/HQI PQRI: Hypertension Provider Diagnoses: HTN (hypertension) Discharge - Sign-Out/Discharge Documenting (check all that apply): Patient Departure Patient Received Moderate/Deep Sedation with Procedure: No - Discharge Plan Condition: Stable Disposition: HOME Referrals: Belem Reese MD [Primary Care Provider] - Additional Instructions: Please follow up with your primary care provider within the next 2-3 days. Return to the emergency department with any new or worsening symptoms. - Billing Disposition and Condition Condition: STABLE Disposition: Home - Attestation Statements Document Initiated by Dallin: Yes Documenting Scribe: Beatriz Freeman Provider For Whom Dallin is Documenting (Include Credential): Pierce Villarreal MD. Scribe Attestation: Beatriz Barton scribed for Pierce Villarreal MD. on 12/22/18 at 2031. Scribe Documentation Reviewed: Yes Provider Attestation: The documentation as recorded by the Beatriz zambrano accurately reflects the service I personally performed and the decisions made by , Pierce Villarreal MD. Status of Scribe Document: Viewed
[2018-12-22 18:28] LABS: ABS Eosinophils 0.1 10^3/ul (0-0.6); ABS Lymphocytes 1.5 10^3/ul (1.0-4.8); ABS Monocytes 0.7 10^3/ul (0-0.8); ABS Neutrophils 5.6 10^3/ul (1.5-7.7); Eosinophil % 0.8 %; Hematocrit 36 % (35-47); Hemoglobin 12.6 g/dL (12.0-16.0); Lymphocyte % 18.7 %; Mean Corpuscular HGB Conc 35 g/dL (31-36); Mean Corpuscular Hemoglobin 32 pg (27-31); Mean Corpuscular Volume 93 fL (80-97); Mean Platelet Volume 7.9 fL (7.4-10.4); Platelet Count 287 10^3/uL (150-450); Red Blood Count 3.92 10^6 /uL (3.70-4.87); Red Cell Distribution Width 14 % (10.5-15); White Blood Count 7.9 10^3/uL (3.5-10.8)
[2018-12-22 18:35] LABS: Activated Partial Thrombo Time 30.2 seconds (26.0-36.3); INR 0.95 (0.82-1.09)
[2018-12-22 18:44] LABS: Albumin 4.1 g/dL (3.2-5.2); Albumin/Globulin Ratio 1.3 (1-3); BUN/Creatinine Ratio 36.7 (8-20); Calcium 9.4 mg/dL (8.6-10.3); EGFR African American 116.1 (>60); EGFR Non-African American 95.9 (>60); Globulin 3.2 g/dL (2-4); Potassium 4.1 mmol/L (3.5-5.0); Total Bilirubin 0.4 mg/dL (0.2-1.0); Total Protein 7.3 g/dL (6.4-8.9)
[2018-12-22 18:45] LABS: Troponin I 0.01 ng/mL (<0.04)
[2018-12-22 20:23] VITALS: BP 144/61
== END 2018-12-22 20:22 | disposition home or self-care (01) ==
LOC: ED 17:10
DX: I10 Essential (primary) hypertension (principal); R11.2 Nausea with vomiting, unspecified; R42 Dizziness and giddiness; G20 Parkinson's disease
CPT/HCPCS: 36415; 70450; 71045; 80053; 83605; 83880; 84484; 85025; 85610; 85730; 93005; 96374; 99283; J0360

== ENCOUNTER 2019-06-15 16:48 | Inpatient (IN) | payer MEDICARE, MEDICAID ==
[2019-06-15] MEDS ORDERED: fentaNYL* 50 MCG/ML 2 ML VIAL (100 MCG VIAL) IV SLOW PU ONE ×3 (17:03→19:39)
--- NOTE | 2019-06-15 17:06 | ED ---
Lower Extremity - HPI Summary HPI Summary: Pt is an 82 y/o F presenting to the ED brought in by EMS for a fall about 30- 45min [employer]. Initially, patients son is translating (preferred, brake shoe rebuilder iPad used by orthopedics for reduction consent and HPI). Pt fell while walking with her son and is currently complaining of R ankle pain with some edema. She denies LOC, knee pain, hip pain, or thigh pain. Hx HTN, Parkinson's dx. Denies blood thinners. Did not hit head. - History of Current Complaint Chief Complaint: EDExtremityLower Stated Complaint: RT LEG INJURY FROM FALL PER EMS Time Seen by Provider: 06/15/19 16:51 Hx Obtained From: Family/Pastrycook'S Assistant, Diamond Finishing Supervisor Hx From Patient Unobtainable Due To: Other - language barrier Mechanism Of Injury: Fall From A Standing Position Onset of Pain: Immediate Onset/Duration: Still Present Severity Initially: Moderate Severity Currently: Moderate Pain Intensity: 6 Pain Scale Used: 0-10 Numeric Timing: Constant, Lasting Hours Location: Is Discrete @ - R ankle Associated Signs And Symptoms: Positive: Swelling. Negative: Knee Pain Aggravating Factor(s): Nothing Alleviating Factor(s): Nothing Able to Bear Weight: No - Allergies/Home Medications Allergies/Adverse Reactions: Allergies Allergy/AdvReac Type Severity Reaction Status Date / Time No Known Allergies Allergy Verified 12/17/16 01:02 Home Medications: Home Medications Calcium Carbonate/Vitamin D3 [Calcium Carbonate/Vitamin] 1 tab PO BID 06/15/19 [ History Confirmed 06/15/19] Nitroglycerin TAB 0.4 MG* 0.4 mg SL Q5M PRN 06/15/19 [History Confirmed 06/15/19 ] Topiramate TAB(*) [Topamax 100 mg tab] 100 mg PO BEDTIME 06/15/19 [History Confirmed 06/15/19] Topiramate TAB(*) [Topamax 25 MG tab] 50 mg PO QAM 06/15/19 [History Confirmed 06/15/19] PMH/Surg Hx/FS Hx/Imm Hx Previously Healthy: Yes Endocrine/Hematology History: Denies: Hx Diabetes Cardiovascular History: Reports: Hx Angina, Hx Hypercholesterolemia, Hx Hypertension Respiratory History: Denies: Hx Asthma, Hx Chronic Obstructive Pulmonary Disease (COPD) Sensory History: Denies: Hx Contacts or Glasses, Hx Hearing Aid Opthamlomology History: Denies: Hx Contacts or Glasses Neurological History: Reports: Other Neuro Impairments/Disorders - Parkinson's Psychiatric History: Reports: Other Psychiatric Issues/Disorders - Parkinson's disease Infectious Disease History: No Infectious Disease History: Denies: Traveled Outside the [place] in Last 30 Days - Family History Known Family History: Negative: Cardiac Disease, Hypertension, Diabetes - Social History Alcohol Use: None Hx Substance Use: No Substance Use Type: Reports: None Hx Tobacco Use: No Smoking Status (MU): Never Smoked Tobacco Review of Systems Positive: Arthralgia - R ankle, Edema. Negative: Myalgia - knee, hip, thigh Neurological: Negative - LOC All Other Systems Reviewed And Are Negative: Yes Physical Exam - Summary Physical Exam Summary: Constitutional: Well-developed, Well-nourished, Alert. (-) Distressed Skin: Warm, Dry HENT: Normocephalic; Atraumatic Eyes: Conjunctiva normal Neck: Musculoskeletal ROM normal neck. (-) JVD, (-) Stridor, (-) Nuchal rigidity Cardio: Rhythm regular, rate normal, Heart sounds normal; Intact distal pulses; Radial pulses are 2+ and symmetric. (-) Murmur Pulmonary/Chest wall: Effort normal. (-) Respiratory distress, (-) Wheezes, (-) Rales Abd: Soft, (-) tenderness, (-) Distension, (-) Guarding, (-) Rebound Musculoskeletal: Bilateral UE tremors. Deformity of R ankle with 2+ DP pulses. No tenderness of R knee/femur/hip or foot. Neuro: Alert, Oriented x3 Psych: Mood and affect Normal Triage Information Reviewed: Yes Vital Signs On Initial Exam: Initial Vitals Temp Pulse Resp BP Pulse Ox 98.2 F 81 16 222/94 96 06/15/19 16:50 06/15/19 16:50 06/15/19 16:50 06/15/19 16:50 06/15/19 16:50 Vital Signs Reviewed: Yes Procedures - Sedation Patient Received Moderate/Deep Sedation with Procedure: No Diagnostics - Vital Signs Vital Signs Temp Pulse Resp BP Pulse Ox 06/15/19 16:50 98.2 F 81 16 222/94 96 - Laboratory Result Diagrams: 06/16/19 04:42 06/16/19 04:42 Lab Statement: Any lab studies that have been ordered have been reviewed, and results considered in the medical decision making process. - Radiology LE X-ray Radiology Interpretation Completed By: Radiologist Summary of Radiographic Findings: Trimalleolar fracture dislocation of the ankle. ED physician has reviewed this report. Foot XR Radiology Interpretation Completed By: Radiologist Summary of Radiographic Findings: 1. TRIMALLEOLAR FRACTURE DISLOCATION OF THE ANKLE. 2. PROBABLE SUBACUTE TO CHRONIC FRACTURES OF THE SECOND AND THIRD METATARSALS NOT WELL-DEFINED ON THIS LIMITED STUDY. ED physician has reviewed this report. Ankle XR Radiology Interpretation Completed By: Radiologist Summary of Radiographic Findings: Trimalleolar fracture dislocation. ED physician has reviewed this report. CXR Radiology Interpretation Completed By: ED Physician Summary of Radiographic Findings: No acute process. Pending official radiology report. Ankle XR 2 Radiology Interpretation Completed By: ED Physician Summary of Radiographic Findings: Successful reduction of dislocation. Pending official radiology report. - EKG 1844 Cardiac Rate: NL - 81bpm EKG Rhythm: Sinus Rhythm ST Segment: Normal Ectopy: None Summary of EKG Findings: An EKG at 1844 reveals normal sinus rhythm at 81pbm with nml axis, prolonged SC intervals. No STEMI. No acute changes. ED physician has reviewed and interpreted this EKG. Re-Evaluation - Re-Evaluation 1st re-eval Re-Evaluation Time: 18:00 Change: Unchanged Comment: Dr. Mendoza and his PA will try to reduce ankle in ED prior to admission. Diamond Finishing Supervisor iPad used for consent w/ orthopedics. Lower Extremity Course/Dx - Course Course Of Treatment: 83 y/o F w hx HTN and Parkinson's p/w ankle pain found to have trimal fr dislocation. - NVS intact. Concern that patient is poor candidate for sedation in ED, d/w anesthesia who cannot come down to ED. - orthopedics reduced and splinted at bedside, plan for OR this week. - admit to medicine for PT/OT. - suspect markedly elevated BP 2/2 pain, given fentanyl. No e/o end organ damage on labs - Diagnoses Provider Diagnoses: Trimalleolar fracture of ankle, closed Discharge ED - Sign-Out/Discharge Documenting (check all that apply): Patient Departure - Discharge Plan Condition: Stable Disposition: ADMITTED TO [facility] - Billing Disposition and Condition Condition: STABLE Disposition: Admitted to [facility] - Attestation Statements Document Initiated by Scribe: Yes Documenting Scribe: Beatriz Freeman Provider For Whom Scribe is Documenting (Include Credential): Della Galvan MD. Scribe Attestation: I, Beartiz Freeman, scribed for Della Galvan MD. on 06/16/19 at 1001. Scribe Documentation Reviewed: Yes Provider Attestation: The documentation as recorded by the scribe, Beatriz Freeman accurately reflects the service I personally performed and the decisions made by me, Della Galvna MD. Status of Scribe Document: Viewed Consult Consult: 1730 - Concern that patient isnt appropriate to sedate in ED given comorbidities. Dr. Solorzano is unable to come down but states if she requires anesthesia she will have to go to the OR. 174 - Dr. Mendoza states pt will need to go to the OR. 175 - Dr. Larsen accepts pt to [facility].
--- OUTSIDE RECORDS SUMMARY | 2019-06-15 17:27 | XMS REPORT | Continuity of Care Document ---
:1935 External Reference #:[id number] Author Name Drew Kramer M.D. (transmitted by agent of provider [facility]) Address [address], [place] [address] Care Team Providers Name Role Phone Belem Reese MD - Family Care Team Information Laboratory Clerk [phone] Medicine Problems Active Problems Provider Date Chest pain Chuck Love M.D., [facility], [facility] Onset: 09/02/2013 Social History Type Date Description Comments Sex Unknown ETOH Use Denies alcohol use Tobacco Use Start: Unknown Patient has never smoked Smoking Status Reviewed: 10/06/18 Patient has never smoked Allergies, Adverse Reactions, Alerts Description No Known Drug Allergies Medications Active Medications SIG Qnty Indications Ordering Date Provider Primidone 1 tab by mouth at 30tabs G25.0 Drew Mohan 10/06/2018 50mg Tablets bedtime. Martin Kramer Omeprazole 1 po twice a day Unknown 40mg Capsules Meclizine HCL 1 po tid prn Unknown 25mg Tablets Minoxidil 4 tabs by mouth Unknown 10mg Tablets twice a day. Amlodipine Besylate 1 po bid Unknown 10mg Tablets Ramipril 1 po bid Unknown 10mg Capsules Labetalol HCL 2 po bid every 8 Unknown 300mg hours Tablets Calcium Carbonate/D3 1 tab po bid Unknown [id number] Tablets Diazepam 1 tab po q8h prn 2tabs Unknown 5mg Tablets vertigo, dizziness Aspirin 81 1 tab po qd Unknown 81mg Tablets Atorvastatin Calcium 1 by mouth every Unknown 40mg day Tablets Chlorthalidone 1 by mouth every Unknown 25mg day Tablets Trazodone HCL 1 tablet at Unknown 50mg bedtime as needed Tablets Sucralfate 1 by mouth four Unknown 1gm Tablets times a day Clonidine 1 patch every Unknown 0.3mg/24HR week Patches Weekly Spironolactone 1 by mouth every Unknown 50mg day Tablets Medications Administered in Office Medication SIG Qnty Indications Ordering Provider Date Inj, Regadenoson, 0.1 MG Chuck Love M.D., 09/02/2013 Injection [facility] Technetium TC 99M Chuck Love M.D., 09/02/2013 Tetrofosmin, Per Unit Dose [facility] Up To 40 Millicuries Injection Immunizations Description No Information Available Vital Signs Date Vital Result Comment 04/21/2019 11:14am Height 60 inches 5'0" Weight 185.25 lb Heart Rate 64 /min BP Systolic Sitting 162 mmHg BP Diastolic Sitting 98 mmHg Respiratory Rate 20 /min BMI (Body Mass Index) 36.2 kg/m2 10/06/2018 10:55am Height 60 inches 5'0" Weight 177.38 lb Heart Rate 80 /min BP Systolic 134 mmHg BP Diastolic 88 mmHg BMI (Body Mass Index) 34.6 kg/m2 Results Description No Information Available Procedures Description No Information Available Medical Devices Description No Information Available Encounters Description No Information Available Assessments Date Code Description Provider 04/21/2019 G25.0 Essential tremor Drew Kramer M.D. 04/21/2019 R42 Dizziness and giddiness Drew Kramer M.D. 04/21/2019 I10 Essential (primary) hypertension Drew Kramer M.D. Plan of Treatment Future Appointment(s):10/23/2019 10:45 am - Drew Kramer M.D. at [facility]/21/2019 - Drew Kramer M.D.G25.0 Essential tremorFollow up:6 [id number] Dizziness and giddinessRecommendations:stop [id number] Essential (primary) hypertension Functional Status Description No Information Available Mental Status Description No Information Available Referrals Description No Information Available
[2019-06-15] MEDS ORDERED: Bupivacaine 0.25% SDV* 30 ML INJ ONE (18:00)
[2019-06-15] MEDS ORDERED: Lidocaine 1% INJ* 10 MG/ML 30 ML SDV INJ ONE (18:00)
[2019-06-15] MEDS ORDERED: Bupivacaine 0.25% SDV PF* 10 ML VIAL INJ ONE (18:00)
[2019-06-15 18:43] LABS: ABS Eosinophils 0.2 10^3/ul (0-0.6); ABS Lymphocytes 1.7 10^3/ul (1.0-4.8); ABS Neutrophils 5.7 10^3/ul (1.5-7.7); Eosinophil % 1.8 %; Hematocrit 39 % (35-47); Hemoglobin 13.3 g/dL (12.0-16.0); Lymphocyte % 19.8 %; Mean Corpuscular HGB Conc 34 g/dL (31-36); Mean Corpuscular Hemoglobin 31 pg (27-31); Mean Corpuscular Volume 93 fL (80-97); Nucleated Red Blood Cells % 0.1; Platelet Count 270 10^3/uL (150-450); Red Blood Count 4.26 10^6 /uL (3.70-4.87); Red Cell Distribution Width 14 % (10-15); White Blood Count 8.6 10^3/uL (3.5-10.8)
[2019-06-15 19:01] LABS: Albumin 4.2 g/dL (3.2-5.2); Albumin/Globulin Ratio 1.3 (1-3); BUN/Creatinine Ratio 27.7 (8-20); Calcium 9.5 mg/dL (8.6-10.3); EGFR African American 105.9 (>60); EGFR Non-African American 87.5 (>60); Globulin 3.3 g/dL (2-4); Total Bilirubin 0.4 mg/dL (0.2-1.0); Total Protein 7.5 g/dL (6.4-8.9)
[2019-06-15 19:02] LABS: Potassium 4.2 mmol/L (3.5-5.0)
[2019-06-15] MEDS ORDERED: Ondansetron INJ* 2 MG/ML VIAL IV PRN (19:23)
[2019-06-15] MEDS ORDERED: Acetaminophen TAB* 325 MG PO PRN (19:23)
[2019-06-15] MEDS ORDERED: clonazePAM TAB(*) 0.5 MG PO PRN (19:27)
[2019-06-15] MEDS ORDERED: Meclizine TAB* 12.5 MG PO PRN (19:27)
[2019-06-15] MEDS ORDERED: Nitroglycerin TAB 0.4 MG* 0.4 MG TAB SL PRN (19:27)
[2019-06-15] MEDS ORDERED: hydrALAZINE IV* 20 MG/ML VIAL IV SLOW PU PRN (19:38)
[2019-06-15 20:20] LABS: Troponin I 0.01 ng/mL (<0.04)
--- NOTE | 2019-06-15 22:04 | HP ---
CC: Dr. Reese; Dr. Wilson Mendoza * ADMISSION HISTORY AND PHYSICAL: DATE OF ADMISSION: 06/15/19 PRIMARY CARE PROVIDER: Dr. Reese. MY ATTENDING WHILE IN THE HOSPITAL: Dr. Wilson Eagle.* (DICTATED BY JOSH LUONG) CONSULTING ORTHOPEDIST: Dr. Wilson Mendoza. CHIEF COMPLAINT: Fall, ankle pain. HISTORY OF PRESENT ILLNESS: The patient's history is obtained through her granddaughter, mona June; the patient speaks only [place]ian. Ms. Pate is an 83-year-old female with past medical history significant for hypertension and Parkinson's disease and documented vertigo, who presents to the emergency department after today she was feeling in her normal state of health except for a severely high blood pressure approximately 215/105 this morning for which she took her home prescribed blood pressure medication. She was feeling, however, somewhat dizzy prior to going outside when she was walking on the grass and slipped and fell. The patient states that she did not lose consciousness but after the fall, she had pain in her ankle and odd feeling in her chest like "her heart had stopped working." This was associated with shortness of breath and resolved quickly. She had no significant chest pain. The patient prior to her fall had very good functional status. She was able to walk up flights of stairs without getting short of breath and if she went slowly, walk long distances without being short of breath and has essentially no functional limitations due to shortness of breath. She was, however, somewhat unsteady in her foot due to her Parkinson's disease. The patient has been feeling in her normal state of health and had no recent changes to her medications. The patient does take chronic hydrocodone for shoulder pain related to what appears to be a rotator cuff tear. The patient had a stress test in 2017, which was normal and has had no cardiac testing that she knows of since then. The patient denies any fevers, chills, abdominal pain , nausea, vomiting, diarrhea, or recent changes in her meds. The patient follows with department mgr, but does not know if she has ever had a workup for a resistant secondary hypertension. The patient denies missing any doses of her medications. The patient was brought into the emergency department immediately. The patient in the emergency department was noted to have a deformed ankle, which ended up being dislocated and fracture of the trimalleolar fracture. The patient was seen in consultation by Orthopedics, who reduced the fracture and recommended admission for surgery on , preoperative optimization. Due to concern for this, we were asked to evaluate the patient for admission to the hospital. PAST MEDICAL HISTORY: Severe hypertension, Parkinson's disease, vertigo, chronic right shoulder pain, essential tremor. PAST SURGICAL HISTORY: None. MEDICATIONS: 1. Primidone 50 mg p.o. 1 tab daily. 2. Omeprazole 40 mg p.o. twice daily. 3. Meclizine 25 mg p.o. t.i.d. as needed. 4. Minoxidil 40 mg p.o. twice daily. 5. Amlodipine 10 mg p.o. twice daily. 6. Ramipril 10 mg p.o. twice daily. 7. Labetalol 600 mg p.o. q.8 hours. 8. Calcium carbonate and D3 600/400 one tab p.o. b.i.d. 9. Diazepam 5 mg 1 tab p.o. q.8 hours as needed for dizziness. 10. Aspirin 81 mg p.o. daily. 11. Atorvastatin 40 mg p.o. daily. 12. Chlorthalidone 25 mg p.o. daily. 13. Trazodone 50 mg p.o. at bedtime as needed. 14. Sucralfate 1 g p.o. by mouth 4 times a day. 15. Clonidine 0.3 mg q.24-hour patch, 1 patch weekly. 16. Spironolactone 50 mg p.o. daily. 17. Clonazepam 0.5 mg p.o. by mouth as needed for tremor. ALLERGIES: No known drug allergies. FAMILY HISTORY: The patient's mother of CVA. The patient's father in World War II. SOCIAL HISTORY: The patient has never smoked, drank, or use illicit drugs. 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 The patient's surrogate decision maker is her granddaughter, Shaylee Pate. REVIEW OF SYSTEMS: A 10-point review of systems was reviewed with the daughter and her granddaughter and is negative except as above in the HPI and history and physical exam. PHYSICAL EXAMINATION GENERAL: The patient is an 83-year-old female with visible tremor, who appears stated age, sitting in the bed, in no acute distress. VITAL SIGNS: At the time of evaluation, temperature 98.2, pulse rate 81, respiratory rate 20, oxygen saturation 96% on room air, blood pressure taken manually by this author 170/90. HEENT: Head: Normocephalic, atraumatic. Sclerae anicteric. No conjunctival injection. Nasal mucosa moist. Oral mucosa moist. No pharyngeal erythema, discharge, or exudate. NECK: Supple, nontender. No lymphadenopathy. No carotid bruits auscultated. No JVD. RESPIRATORY: Clear to auscultation bilaterally. No wheezes, rales, or rhonchi. Good air exchange bilaterally. CARDIAC: Regular rate and rhythm. No clicks, murmurs, gallops, or rubs. Pulses are 2+ in the bilateral dorsalis pedis, posterior tibial, and radial areas. Grade 3/6 systolic ejection murmur heard best at the right upper sternal border. ABDOMEN: Soft, nontender, nondistended. Bowel sounds present and normoactive in all 4 quadrants. No hepatosplenomegaly. No abdominal bruits auscultated. No hepatojugular reflux. GENITOURINARY: No suprapubic or CVA tenderness. EXTREMITIES: Right ankle in cast. Good distal perfusion and motion. NEURO: Cranial nerves II through XII intact. No nystagmus. Bilateral essential tremor. PSYCHIATRIC: Pleasant and cooperative. SKIN: Clean, dry, and intact. No rash. DIAGNOSTIC STUDIES/LAB DATA: White blood cell count 8.6, hemoglobin 13.3, platelet count 270. Sodium 140, potassium 4.2, chloride 106, carbon dioxide 27 , anion gap 7, BUN 18, creatinine 0.65, glucose 97, calcium 9.5. Bilirubin 0.4 , AST 26, ALT 21, alkaline phosphatase 94. Protein 7.5, albumin 4.2, globulin 3.3. Lower extremity x-ray read as trimalleolar fracture, dislocation of the ankle. Foot x-ray read as probable acute chronic fractures of the second and third metatarsals, trimalleolar fracture and dislocation of the ankle. Ankle x-ray read as trimalleolar fracture and dislocation. EKG shows normal sinus rhythm, no ST-segment elevation or depression, no hypertrophy or enlargement, normal axis, rate of 81, and QTc of 460. Compared to previous exam, there are no significant changes. Chest x-ray to this author shows no acute thoracic disease. Compared to previous exam, possible left lower lobe infiltrate appears to have resolved. Ankle x-ray postreduction shows approximate alignment present in trimalleolar fracture. ASSESSMENT AND PLAN: Impression: Ms. Pate is an 83-year-old female with past medical history significant for severe hypertension, Parkinson's disease/ essential tremor, chronic dizziness, who presents to the emergency department after a mechanical fall with a right ankle trimalleolar fracture which has been reduced, admitted to the hospital for physical therapy preoperative optimization prior to a planned surgical reduction, , 06/18/19. 1. Right ankle fracture. The patient had a trimalleolar fracture resulting from what sounds to be a mechanical fall. Management per Orthopedics. The patient is currently casted and her dislocation has been reduced. Appreciate Orthopedic consult. The patient will hopefully be able to go to the OR on pending preoperative optimization. The patient is not currently optimized given her hypertensive urgency on admission, new finding of heart murmur, and improvement in the patient's blood pressure to acceptable levels. 2. Resistant hypertension. The patient's hypertension this morning according to her report was 215/115, which is consistent with the reading that happened when she got to the hospital. This author's manual blood pressure was significantly lower than this at 170/90. However, the patient is currently on 7 different blood pressure medications. The patient has never had a workup for secondary causes of hypertension as far as the family knows. If this is truly not the case, this should be undertaken and is likely would not be beneficial while the patient in the hospital and treatment of her blood pressure with a goal of lowering it no more than 25% in the first 24 hours and then to go soon thereafter will be undertaken prior to her planned surgery on . 3. Fall. The patient had an odd feeling in her chest during her fall. The patient denies any chest pain now, but did have some shortness of breath. It is unclear what the significance of this is. The patient has no ischemic signs on her EKG, no signs of heart failure on her chest x-ray. The patient has a troponin pending. The patient has no signs of heart failure. The patient will have an echocardiogram to assess her murmur and for a low ejection fraction, which will change intraoperative management. If she has an elevated troponin or other abnormalities on echocardiogram, may require a stress test prior to her surgery, though she did have one back in 2017 which was a stress echocardiogram and was normal. 4. Parkinson's/essential tremor. The patient had a previous diagnosis of Parkinson's disease in her chart; however, her most recent Neurology note makes no mention of this and appears as this might be only related to essential tremor. Continue the patient's clonazepam and primidone at this time as well as her Topamax. 5. Hyperlipidemia. The patient is on Lipitor presumably for hyperlipidemia. Continue Lipitor at this time. 6. FEN: The patient will have a heart-healthy diet without caffeine. Fluids are not indicated at this time. 7. Disposition: The patient will be admitted inpatient to the hospital. TIME SPENT: Approximately 60 minutes was spent on the admission of this patient , 30 of which was spent [id number] with the patient obtaining history and physical and discussing treatment plan. This plan was discussed with my attending, Dr. Wilson Eagle, and he is in agreement. JOSH LUONG [id number]/[facility] #: [id number] MIKIE
[2019-06-15] MEDS: Morphine INJ* 2 MG/ML 1 ML SYRINGE (TWO MG - NEW SYRINGE VERSION) IV PRN (22:06)
[2019-06-15] MEDS: Heparin VIAL(*) 5000 UNITS/ML VIAL (FIVE THOUSAND) SUBCUT SCH (22:11)
[2019-06-15] MEDS: amLODIPine TAB* 5 MG PO SCH (22:12)
[2019-06-15] MEDS: Ramipril CAP* 10 MG PO SCH (22:13)
[2019-06-15] MEDS: traZODone TAB* 50 MG TAB PO SCH (22:13)
[2019-06-15] MEDS: Topiramate TAB(*) 100 MG PO SCH (22:13)
[2019-06-15] MEDS: Pantoprazole TAB * 40 MG TAB PO SCH (22:13)
[2019-06-15] MEDS: MinoXIDil TAB* 10 MG TAB PO SCH (22:14)
[2019-06-15] MEDS: Labetalol TAB* 300 MG PO SCH (22:15)
[2019-06-15] MEDS: Primidone TAB(*) 50 MG PO SCH (22:15)
[2019-06-15] MEDS ORDERED: cloNIDine 0.3 MG PATCH* 0.3 MG/24 HR 7 DAY PATCH TRANSDERM SCH (23:00)
[2019-06-16] MEDS: Morphine INJ* 2 MG/ML 1 ML SYRINGE (TWO MG - NEW SYRINGE VERSION) IV PRN ×3 (03:25→22:48)
[2019-06-16 03:59] LABS: Urine Appearance Cloudy; Urine Bilirubin Negative (Negative); Urine Blood 2+ (Negative); Urine Color Yellow; Urine Glucose Negative (Negative); Urine Ketones Negative (Negative); Urine Nitrite Negative (Negative); Urine Protein Negative (Negative); Urine Specific Gravity 1.013 (1.010-1.030); Urine Urobilinogen Negative (Negative)
[2019-06-16 04:08] LABS: Urine Bacteria Absent (Absent); Urine Red Blood Cell 3+(>10/hpf) (Absent); Urine Squamous Epithelial Cell Present (Absent); Urine White Blood Cell 3+(>20/hpf) (Absent)
[2019-06-16 05:05] LABS: ABS Eosinophils 0.1 10^3/ul (0-0.6); ABS Lymphocytes 1.8 10^3/ul (1.0-4.8); ABS Neutrophils 4.3 10^3/ul (1.5-7.7); Eosinophil % 0.7 %; Hematocrit 34 % (35-47); Hemoglobin 11.7 g/dL (12.0-16.0); Lymphocyte % 24.9 %; Mean Corpuscular HGB Conc 35 g/dL (31-36); Mean Corpuscular Hemoglobin 32 pg (27-31); Mean Corpuscular Volume 92 fL (80-97); Mean Platelet Volume 8.4 fL (7.4-10.4); Platelet Count 236 10^3/uL (150-450); Red Blood Count 3.68 10^6 /uL (3.70-4.87); Red Cell Distribution Width 14 % (10-15); White Blood Count 7.1 10^3/uL (3.5-10.8)
[2019-06-16 05:21] LABS: BUN/Creatinine Ratio 29.2 (8-20); Calcium 8.9 mg/dL (8.6-10.3); EGFR African American 105.9 (>60); EGFR Non-African American 87.5 (>60); HDL Cholesterol 49.7 mg/dL; Magnesium 1.9 mg/dL (1.9-2.7); Potassium 4.3 mmol/L (3.5-5.0)
[2019-06-16 05:23] LABS: Troponin I 0.01 ng/mL (<0.04)
[2019-06-16] MEDS: Heparin VIAL(*) 5000 UNITS/ML VIAL (FIVE THOUSAND) SUBCUT SCH ×3 (05:57→22:46)
[2019-06-16] MEDS: Labetalol TAB* 300 MG PO SCH ×3 (05:57→22:46)
[2019-06-16] MEDS: Ramipril CAP* 10 MG PO SCH ×2 (08:56→22:46)
[2019-06-16] MEDS ORDERED: Sertraline* 50 MG TAB PO SCH (09:00)
--- NOTE | 2019-06-16 10:06 | CONS ---
ORTHOPEDIC CONSULTATION NOTE: DATE OF CONSULT: 06/15/19 ATTENDING ORTHOPEDIST: Wilson Mendoza MD CHIEF COMPLAINT: Right ankle pain. HISTORY OF PRESENT ILLNESS: Ms. Pate is an 83-year-old female, whose history was obtained through her son and granddaughter. She only speaks Croatian. The patient presented to the emergency room with right ankle pain after an injury that she sustained just prior to her arrival. She states that she was outside and slipped and fell on the grass. She does report that she has some dizziness due to her hypertension, but did not have any loss of consciousness or syncopal event. She was then unable to ambulate afterwards and brought to the emergency room with an obvious deformity of the right ankle. X- rays revealed a right ankle fracture/ dislocation and orthopedic was then consulted. PAST MEDICAL HISTORY: Hypertension, Parkinson's disease, vertigo, and an essential tremor. PAST SURGICAL HISTORY: None. CURRENT MEDICATIONS: 1. Primidone 50 mg p.o. daily. 2. Omeprazole 40 mg twice daily. 3. Meclizine 25 mg t.i.d. as needed. 4. Minoxidil 40 mg twice daily. 5. Amlodipine 10 mg twice daily. 6. Ramipril 10 mg twice daily. 7. Ibuprofen 600 mg q.8 hours as needed. 8. Calcium carbonate plus D 600/400 one tab b.i.d. 9. Diazepam 5 mg q.8 hours as needed. 10. Aspirin 81 mg daily. 11. Atorvastatin 40 mg daily. 12. Chlorthalidone 25 mg daily. 13. Trazodone 50 mg at bedtime as needed. 14. Sucralfate 1 g 4 times daily. 15. Clonidine 0.3 mg q.24-hour patch, 1 patch weekly. 16. Spironolactone 40 mg daily. 17. Clonazepam 0.5 mg as needed for tremor. ALLERGIES: No known drug allergies. FAMILY HISTORY: Positive for stroke in her mother. SOCIAL HISTORY: She is with 3 children. She denies tobacco, alcoholic beverage, or illicit drug use. She does live on her own and she ambulates independently at baseline. REVIEW OF SYSTEMS: A 14-point review of systems was discussed with the patient , negative except discussed in the HPI. PHYSICAL EXAMINATION: General: She is a well-developed, well-nourished elderly female with a noticeable tremor on exam. She is alert and oriented x3 with appropriate mood and affect. She is in no acute distress at rest. HEENT: Normocephalic, atraumatic. Hearing and vision are grossly intact. Neck: Her trachea is midline. Cardiovascular: Regular rate and rhythm. No murmurs, rubs , or gallops were appreciated. Respiratory: Lungs were clear to auscultation bilaterally. Abdomen: Soft and nondistended. Extremities: Exam of the right lower extremity, there is an obvious deformity of the right ankle. She is tender to palpation diffusely around the ankle joint. Her sensation to light touch is intact. She has a 2+ dorsalis pedis pulse. She is able to flex and extend her MTP joints without discomfort. There is no tenderness to palpation around the knee, thigh, or hip. IMAGING: Right lower extremity x-ray shows the trimalleolar fracture/ dislocation of the ankle. IMPRESSION: Right ankle trimalleolar fracture/dislocation. PLAN: Using an sand and gravel plant operator service, consent was obtained to perform a closed reduction with locally anesthesia in the emergency room with splinting. Under sterile technique 5 cc of 1% lidocaine and 5 cc of 0.5% Marcaine were injected as a hematoma block into the right ankle joint. The patient had good pain relief after the injection. The ankle was then reduced providing traction and a plaster splint was applied. The patient tolerated the procedure well. The patient will be admitted to the Medical Service for management of her hypertension and Parkinson's disease and medical optimization to undergo right ankle open reduction and internal fixation with Dr. Mora. We will plan to do this on 06/16/19 given the medical clearance is obtained at that time. Orthopedics will continue to follow. Thank you for this consultation. JOSH JACQUES [id number]/[facility] #: [id number] MIKIE
[2019-06-16] MEDS: amLODIPine TAB* 5 MG PO SCH ×2 (10:53→22:43)
[2019-06-16] MEDS: Chlorthalidone TAB* 50 MG PO SCH (10:53)
[2019-06-16] MEDS: Spironolactone TAB* 25 MG PO SCH (10:53)
[2019-06-16] MEDS: MinoXIDil TAB* 10 MG TAB PO SCH ×2 (10:54→22:44)
[2019-06-16] MEDS: Pantoprazole TAB * 40 MG TAB PO SCH ×2 (11:14→22:45)
[2019-06-16] MEDS: Atorvastatin* 40 MG TAB PO SCH (11:14)
[2019-06-16] MEDS: Topiramate TAB(*) 25 MG PO SCH (11:14)
[2019-06-16] MEDS: Aspirin 81 mg CHEW TAB* 81 MG TAB.CHEW PO SCH (11:14)
--- NOTE | 2019-06-16 11:46 | PN ---
Subjective Date of Service: 06/16/19 Interval History: Ms. Pate suffered a fall resulting in dislocation and trimaleolar fracture of the R ankel. Currently, she denies pain in the R ankle. She states that she is scared about undergoing surgery, and that this is her first surgery. She has no other complaints today. Objective Active Medications: Acetaminophen (Tylenol Tab*) 650 mg PO Q6H PRN PRN Reason: MILD PAIN or TEMP > 100.4 Amlodipine Besylate (Norvasc Tab*) 10 mg PO BID [facility] Last Admin: 06/16/19 10:53 Dose: Not Given Aspirin (Aspirin 81 Mg Chew Tab*) 81 mg PO DAILY [facility] Last Admin: 06/16/19 11:14 Dose: 81 mg Atorvastatin Calcium (Lipitor*) 40 mg PO DAILY [facility] Last Admin: 06/16/19 11:14 Dose: 40 mg Chlorthalidone (Hygroton Tab*) 25 mg PO DAILY [facility] Last Admin: 06/16/19 10:53 Dose: Not Given Clonazepam (Klonopin Tab(*)) 0.25 mg PO Q8H PRN PRN Reason: Tremors Clonidine HCl (Bbtipuej-Yfp-5 0.3 Mg Patch*) 0.3 mg TRANSDERM Q7D [facility] Last Admin: 06/15/19 22:40 Dose: 0.3 mg Hydralazine HCl (Apresoline Iv*) 5 mg IV SLOW PU Q6H PRN PRN Reason: Systolic Bp Greater Than:180 Labetalol HCl (Trandate Tab*) 600 mg PO Q8HR [facility] Last Admin: 06/16/19 05:57 Dose: 600 mg Meclizine HCl (Antivert Tab*) 25 mg PO TID PRN PRN Reason: DIZZINESS Last Admin: 06/15/19 22:13 Dose: 25 mg Minoxidil (Loniten Tab*) 40 mg PO BID [facility] Last Admin: 06/16/19 10:54 Dose: Not Given Morphine Sulfate (Morphine Inj (Syringe))*) 2 mg IV Q4H PRN PRN Reason: PAIN - SEVERE Last Admin: 06/16/19 03:25 Dose: 2 mg Nitroglycerin (Nitroglycerin Tab 0.4 Mg*) 0.4 mg SL Q5M PRN PRN Reason: ANGINA Ondansetron HCl (Zofran Inj*) 4 mg IV Q6H PRN PRN Reason: NAUSEA Oxycodone HCl (Roxycodone Tab*) 10 mg PO Q6H PRN PRN Reason: PAIN - MODERATE Pantoprazole Sodium (Protonix Tab*) 40 mg PO BID [facility] Last Admin: 06/16/19 11:14 Dose: 40 mg Primidone (Mysoline Tab(*)) 50 mg PO BEDTIME [facility] Last Admin: 06/15/19 22:15 Dose: 50 mg Ramipril (Altace Cap*) 10 mg PO BID [facility] Last Admin: 06/16/19 08:56 Dose: Not Given Sertraline HCl (Zoloft*) 50 mg PO BEDTIME [facility] Spironolactone (Aldactone Tab*) 50 mg PO DAILY [facility] Last Admin: 06/16/19 10:53 Dose: Not Given Topiramate (Topamax(*)) 50 mg PO QAM [facility] Last Admin: 06/16/19 11:14 Dose: 50 mg Topiramate (Topamax(*)) 100 mg PO BEDTIME [facility] Last Admin: 06/15/19 22:13 Dose: 100 mg Trazodone HCl (Desyrel Tab*) 50 mg PO BEDTIME [facility] Last Admin: 06/15/19 22:13 Dose: 50 mg Vital Signs: Temp Pulse Resp BP Pulse Ox 99.1 F 67 20 98/58 93 06/16/19 08:19 06/16/19 08:19 06/16/19 08:19 06/16/19 08:19 06/16/19 08:19 Oxygen Devices in Use Now: None Appearance: Ms. Pate is an older white Citizen [place] woman who is sitting up in bed. She appears comfortable, in no acute distress, although she grimaces with movement of the RLE. Discussion is had through fuller brush man services. Eyes: No Scleral Icterus, PERRLA Ears/Nose/Mouth/Throat: NL Teeth, Lips, Gums, Clear Oropharnyx, Mucous Membranes Moist Neck: NL Appearance and Movements; NL JVP, Trachea Midline Respiratory: Symmetrical Chest Expansion and Respiratory Effort, Clear to Auscultation Cardiovascular: RRR, No Edema, - - Systolic murmur on auscultation without rubs , clicks, gallops; no JVD Abdominal: NL Sounds; No Tenderness; No Distention Extremities: No Edema, No Clubbing, Cyanosis, - - RLE with casting and DENISE wrap in place. Sensation intact distally; able top move toes b/l; cap refill intact. Neurological: NL Sensation, NL Muscle Strength and Tone Result Diagrams: 06/16/19 15:50 06/16/19 15:50 Assess/Plan/Problems-Billing Assessment: 83yof PMHx HTN, possible PD, essential tremor, vertigo presents s/p mechanical fall and is found to have elevated BP and R trimalleolar fracture. - Patient Problems (1) Trimalleolar fracture of right ankle Comment: -Ortho consulted; thank you for recommendations -NWB RLE -continue splint, ice, elevation -plan for ORIF -RCRI score is 0 points, Class I risk with 3.9% 30-day risk of , [place], or cardiac arrest. This does not take into account the patient's age, which is a risk factor for adverse outcomes. CXR is without acute cardiopulmonary process. EKG with rate of 71, no ST abnormalities. Normal dobutamine stress echo in November 2016. The patient is noted to have a systolic murmur; an echo has been obtained and reveals EF 65-70%, mild , little change from last Echo. Ms. Pate is medically optimized for surgical intervention. (2) Hypertension Comment: -well controlled with home medications -has not required prn IV hydralazine -continue to monitor (3) Parkinson's disease Comment: -chart shows h/o PD, but no mention in neuro reports -pt does have essential tremor -continue home rx (4) Hyperlipidemia Comment: -continue statin (5) Vertigo Comment: -continue meclizine prn (6) DVT prophylaxis Comment: -heparin SQ (7) Full code status Status and Disposition: Inpatient. Discharge when stable.
--- NOTE | 2019-06-16 12:13 | ECHO ---
*[facility]* [place] [address] Fax #: [phone] Transthoracic Echocardiogram Patient: Janell Pate : 1935 Study Date: 06/16/2019 Age: 83 Gender: F HR: 74 bpm Height: 65 in /165.1 cm BSA: 1.96 m^2 Weight: 179.6 lb /81.6 kg BMI: 30 kg/m^2 *Forging Machine Hand: * Janae Hamilton RDCS RN *Referring Physician: * Duran Lewis *Reading Physician: * Carlito Rincon MD Indications: Murmur. History: Fractured ankle from fall. Parkinson's disease. Vertigo. Risk factors: Hypertension. Obese. Conclusions Summary: - Left ventricle: Systolic function is hyperdynamic. The estimated ejection fraction is 65-70%. Wall motion is normal; there are no regional wall motion abnormalities. - Right ventricle: Systolic function is normal. - Mitral valve: There is trace to mild regurgitation. - Aortic valve: The findings are consistent with mild stenosis. There is trace regurgitation. The peak systolic velocity is 2.54 m/sec. The mean systolic gradient is 13.9 mm Hg. The peak systolic gradient is 25.8 mm Hg. The LVOT to aortic valve VTI ratio is 0.61. The valve area by the velocity-time integral method is 1.66 cm^2. The valve area by the peak velocity method is 1.61 cm^2. - Tricuspid valve: There is mild regurgitation. - Pulmonary arteries: Systolic pressure is mildly increased, estimated to be 39 mm Hg. - Compared to study of 12/17/16, the left ventricle function and valves are the same. The Est. PASP is lower on this study. Study data: Transthoracic echocardiogram. Procedure: Transthoracic echocardiography was performed. Image quality was fair. The study was technically limited due to body habitus. Complete 2D, spectral Doppler, and color flow Doppler. Location: Bedside. Patient status: Inpatient. Patient room number: 446-01. Rhythm: Normal sinus rhythm. Findings Left ventricle: The cavity size is normal. Wall thickness is mildly increased. Systolic function is hyperdynamic. The estimated ejection fraction is 65-70%. Wall motion is normal; there are no regional wall motion abnormalities. Doppler parameters are consistent with abnormal left ventricular relaxation (grade 1 diastolic dysfunction). Right ventricle: The cavity size is normal. Systolic function is normal. Left atrium: The atrium is mildly dilated. Right atrium: The atrium is mildly dilated. Mitral valve: The leaflets are mildly thickened. There is no evidence of stenosis. There is trace to mild regurgitation. Aortic valve: The annulus is calcified. The valve is trileaflet. The leaflets are mildly thickened. The findings are consistent with mild stenosis. There is trace regurgitation. Tricuspid valve: The leaflets are normal thickness. There is no evidence of stenosis. There is mild regurgitation. Pulmonic valve: Not well visualized. There is trace regurgitation. Aorta: Aortic root: The aortic root is not dilated. Ascending aorta: The ascending aorta is not dilated. Aortic arch: The aortic arch is not dilated. Pericardium: There is no pericardial effusion. Pulmonary arteries: Not well visualized. Systolic pressure is mildly increased, estimated to be 39 mm Hg. Systemic veins: Inferior vena cava: The vessel is normal in size. There is (>= 50%) respiratory change in the IVC dimension. Measurements Left ventricle Value Ref Aortic valve Value Ref ABEL, LAX 3.8 cm 3.8 - Peak v, S 2.54 m/sec ----- 5.2 VTI, S 51.1 cm ----- ESD, LAX 2.3 cm 2.2 - Mean grad, S 13.9 mm Hg ----- 3.5 Peak grad, S 25.8 mm Hg ----- FS, LAX 39 % 27 - 45 LVOT/AV, VTI ratio 0.61 ----- PW, ED (H) 1.2 cm 0.6 - TEOFILO, VTI 1.66 cm^2 ----- 0.9 TEOFILO, Vmax 1.61 cm^2 ----- IVS/PW, ED 1.01 -------- E', lat sydnie, TDI (L) 8.0 cm/sec >=10.0 Mitral valve Value Ref E/e', lat sydnie, TDI 13 -------- Peak E 1.03 m/sec ----- E', med sydnie, TDI 7.0 cm/sec >=7.0 Peak A 1.22 m/sec --- -- E/e', med sydnie, TDI 15 -------- Decel time 272 ms ----- E', avg, TDI 7.5 cm/sec -------- Peak grad, D 4.3 mm Hg ----- E/e', avg, TDI 14 <=14 Peak E/A ratio 0.84 --- -- LVOT Value Ref Pulmonic valve Value Ref Diam, S 1.85 cm -------- Peak v, S 1.07 m/sec ----- Area 2.7 cm^2 -------- Peak grad, S 4.6 mm Hg ----- Peak april, S 1.51 m/sec -------- VTI, S 31.3 cm -------- Tricuspid valve Value Ref Peak grad, S 9 mm Hg -------- TR peak v (H) 3 m/sec <=2.8 Mean grad, S 5 mm Hg -------- Peak RV-RA grad, S 36 mm Hg ----- Ventricular septum Value Ref Aortic root Value Ref IVS, ED (H) 1.2 cm 0.6 - Root diam 2.7 cm <4.1 0.9 Ascending aorta Value Ref Right ventricle Value Ref AAo AP diam, S 3.0 cm ----- ABEL minor ax, A4C 3.3 cm 1.9 - mid 3.5 Aortic arch Value Ref Pressure, S 39 mm Hg -------- Arch diam 2.1 cm ----- Left atrium Value Ref Decending aorta Value Ref LA ID 3.5 cm -------- Jacoby peak april 0.53 m/sec ----- SI dim ES, LAX 3.5 cm -------- ML dim, A4C 4.1 cm -------- Pulmonary artery Value Ref SI dim, A4C 6.0 cm -------- Pressure, S 34.4 mm Hg ----- Vol, ES, 2-p 62 ml -------- Vol/bsa, ES, 2-p 33 ml/m^2 16 - 34 Inferior vena cava Value Ref Diam 1.7 cm ----- Right atrium Value Ref SI dim, ES (H) 5.5 cm 3.4 - 5.3 ML dim, ES, A4C 3.6 cm 2.6 - 4.4 SI dim, ES, A4C (H) 5.5 cm 3.4 - 5.3 SI dim/bsa, ES, A4C 2.8 cm/m^2 1.9 - 3.1 Estimated RAP 3 mm Hg -------- Legend: (L) and (H) anya values outside specified reference range. Prepared and electronically signed by Carlito Rincon MD 06/16/2019 12:12
--- NOTE | 2019-06-16 14:40 | PN ---
Progress Note - Progress Note Date of Service: 06/16/19 SOAP: Subjective: []Pt does not speak [place] islander, family helps to translate and states she has pain in the ankle, no pain elsewhere. Objective: []NAD RLE: Splint CDI. Able to f/e toes. Sensation intact to light touch and capillary refill less than two seconds distally Assessment: []R ankle fracture Plan: []NWB RLE Keep splint CDI Keep elevated on 4 pillows, ice to reduce swelling OR for ORIF with Dr Mora. Will need to be NPO and hold chemical dvt prophy at midnight prior to surgery Vital Signs Temp 98.6 F 06/16/19 12:17 Pulse 66 06/16/19 12:17 Resp 20 06/16/19 12:17 BP 111/44 06/16/19 12:17 Pulse Ox 93 06/16/19 12:17 Intake & Output 06/15/19 06/16/19 06/16/19 18:59 06:59 18:59 Intake Total 0 Output Total 0 Balance 0 Weight 180 lb 190 lb 14.4 oz Intake: Oral 0 Output: Urine 0 Laboratory Last Values WBC 7.1 10^3/uL (3.5-10.8) 06/16/19 04:42 RBC 3.68 10^6 /uL (3.70-4.87) L 06/16/19 04:42 Hgb 11.7 g/dL (12.0-16.0) L 06/16/19 04:42 Hct 34 % (35-47) L 06/16/19 04:42 MCV 92 fL (80-97) 06/16/19 04:42 MCH 32 pg (27-31) H 06/16/19 04:42 MCHC 35 g/dL (31-36) 06/16/19 04:42 RDW 14 % (10-15) 06/16/19 04:42 Plt Count 236 10^3/uL (150-450) 06/16/19 04:42 MPV 8.4 fL (7.4-10.4) 06/16/19 04:42 Neut % (Auto) 60.7 % 06/16/19 04:42 Lymph % (Auto) 24.9 % 06/16/19 04:42 [place] % (Auto) 13.5 % 06/16/19 04:42 Eos % (Auto) 0.7 % 06/16/19 04:42 Baso % (Auto) 0.2 % 06/16/19 04:42 Absolute Neuts (auto) 4.3 10^3/ul (1.5-7.7) 06/16/19 04:42 Absolute Lymphs (auto) 1.8 10^3/ul (1.0-4.8) 06/16/19 04:42 Absolute Monos (auto) 1.0 10^3/ul (0-0.8) H 06/16/19 04:42 Absolute Eos (auto) 0.1 10^3/ul (0-0.6) 06/16/19 04:42 Absolute Basos (auto) 0.0 10^3/ul (0-0.2) 06/16/19 04:42 Absolute Nucleated RBC 0.0 10^3/ul 06/16/19 04:42 Nucleated RBC % 0.0 06/16/19 04:42 Sodium 137 mmol/L (135-145) 06/16/19 04:42 Potassium 4.3 mmol/L (3.5-5.0) 06/16/19 04:42 Chloride 105 mmol/L (101-111) 06/16/19 04:42 Carbon Dioxide 27 mmol/L (22-32) 06/16/19 04:42 Anion Gap 5 mmol/L (2-11) 06/16/19 04:42 BUN 19 mg/dL (6-24) 06/16/19 04:42 Creatinine 0.65 mg/dL (0.51-0.95) 06/16/19 04:42 Est GFR ( Amer) 105.9 (>60) 06/16/19 04:42 Est GFR (Non-Af Amer) 87.5 (>60) 06/16/19 04:42 BUN/Creatinine Ratio 29.2 (8-20) H 06/16/19 04:42 Glucose 136 mg/dL (70-100) H 06/16/19 04:42 Hemoglobin A1c 5.9 % (4.0-5.6) H 06/16/19 04:42 Calcium 8.9 mg/dL (8.6-10.3) 06/16/19 04:42 Magnesium 1.9 mg/dL (1.9-2.7) 06/16/19 04:42 Total Bilirubin 0.40 mg/dL (0.2-1.0) 06/15/19 18:36 AST 26 U/L (13-39) 06/15/19 18:36 ALT 21 U/L (7-52) 06/15/19 18:36 Alkaline Phosphatase 94 U/L (34-104) 06/15/19 18:36 Troponin I 0.01 ng/mL (<0.04) 06/16/19 04:42 Total Protein 7.5 g/dL (6.4-8.9) 06/15/19 18:36 Albumin 4.2 g/dL (3.2-5.2) 06/15/19 18:36 Globulin 3.3 g/dL (2-4) 06/15/19 18:36 Albumin/Globulin Ratio 1.3 (1-3) 06/15/19 18:36 Triglycerides 121 mg/dL 06/16/19 04:42 Cholesterol 181 mg/dL 06/16/19 04:42 LDL Cholesterol 107 mg/dL 06/16/19 04:42 HDL Cholesterol 49.7 mg/dL 06/16/19 04:42 Urine Color Yellow 06/16/19 03:30 Urine Appearance Cloudy 06/16/19 03:30 Urine pH 6.0 (5-9) 06/16/19 03:30 Ur Specific [place] 1.013 (1.010-1.030) 06/16/19 03:30 Urine Protein Negative (Negative) 06/16/19 03:30 Urine Ketones Negative (Negative) 06/16/19 03:30 Urine Blood 2+ (Negative) A 06/16/19 03:30 Urine Nitrate Negative (Negative) 06/16/19 03:30 Urine Bilirubin Negative (Negative) 06/16/19 03:30 Urine Urobilinogen Negative (Negative) 06/16/19 03:30 Ur Leukocyte Esterase 1+ (Negative) A 06/16/19 03:30 Urine WBC (Auto) 3+(>20/hpf) (Absent) A 06/16/19 03:30 Urine RBC (Auto) 3+(>10/hpf) (Absent) A 06/16/19 03:30 Ur Squamous Epith Cells Present (Absent) A 06/16/19 03:30 Urine Bacteria Absent (Absent) 06/16/19 03:30 Hyaline Casts Present (Absent) A 06/16/19 03:30 Urine Glucose Negative (Negative) 06/16/19 03:30 Blood Type A Positive 06/15/19 18:36 Antibody Screen Negative 06/15/19 18:36
[2019-06-16 16:11] LABS: ABS Eosinophils 0.1 10^3/ul (0-0.6); ABS Lymphocytes 2.1 10^3/ul (1.0-4.8); ABS Neutrophils 2.8 10^3/ul (1.5-7.7); Eosinophil % 1.8 %; Hematocrit 34 % (35-47); Hemoglobin 11.7 g/dL (12.0-16.0); Lymphocyte % 35.4 %; Mean Corpuscular HGB Conc 34 g/dL (31-36); Mean Corpuscular Hemoglobin 32 pg (27-31); Mean Corpuscular Volume 92 fL (80-97); Mean Platelet Volume 8.3 fL (7.4-10.4); Platelet Count 241 10^3/uL (150-450); Red Blood Count 3.72 10^6 /uL (3.70-4.87); Red Cell Distribution Width 14 % (10-15)
[2019-06-16 16:25] LABS: EGFR African American 95.6 (>60)
[2019-06-16 16:35] LABS: Activated Partial Thrombo Time 31.8 seconds (26.0-38.0); INR 1.02 (0.82-1.09)
[2019-06-16] MEDS: Sertraline* 50 MG TAB PO SCH (22:46)
[2019-06-16] MEDS: Topiramate TAB(*) 100 MG PO SCH (22:46)
[2019-06-16] MEDS: traZODone TAB* 50 MG TAB PO SCH (22:46)
[2019-06-16] MEDS: Primidone TAB(*) 50 MG PO SCH (22:48)
[2019-06-17] MEDS: Labetalol TAB* 300 MG PO SCH ×2 (05:52→13:55)
[2019-06-17] MEDS: Heparin VIAL(*) 5000 UNITS/ML VIAL (FIVE THOUSAND) SUBCUT SCH ×3 (05:54→21:51)
[2019-06-17] MEDS: Topiramate TAB(*) 25 MG PO SCH (09:05)
[2019-06-17] MEDS: Pantoprazole TAB * 40 MG TAB PO SCH ×2 (09:05→21:52)
[2019-06-17] MEDS: Aspirin 81 mg CHEW TAB* 81 MG TAB.CHEW PO SCH (09:05)
[2019-06-17] MEDS: Atorvastatin* 40 MG TAB PO SCH (09:05)
[2019-06-17] MEDS: Chlorthalidone TAB* 50 MG PO SCH (10:10)
[2019-06-17] MEDS: MinoXIDil TAB* 10 MG TAB PO SCH (10:10)
[2019-06-17] MEDS: amLODIPine TAB* 5 MG PO SCH (10:10)
[2019-06-17] MEDS: Ramipril CAP* 10 MG PO SCH (10:10)
[2019-06-17] MEDS: Spironolactone TAB* 25 MG PO SCH (10:11)
--- NOTE | 2019-06-17 10:24 | PN ---
Subjective Date of Service: 06/17/19 Interval History: Ms. Pate is seen at bedside with learning designer. She c/o pain in the R ankle rated at 9/10 that worsens with movement. She denies dysuria, frequency, urgency, retention. She is eating and drinking some. Last BM was Saturday. She states she is having difficulty with sleeping due to noise. She has no other complaints today. Objective Active Medications: Acetaminophen (Tylenol Tab*) 650 mg PO Q6H PRN PRN Reason: MILD PAIN or TEMP > 100.4 Amlodipine Besylate (Norvasc Tab*) 10 mg PO BID [facility] Last Admin: 06/17/19 10:10 Dose: Not Given Aspirin (Aspirin 81 Mg Chew Tab*) 81 mg PO DAILY [facility] Last Admin: 06/17/19 09:05 Dose: 81 mg Atorvastatin Calcium (Lipitor*) 40 mg PO DAILY [facility] Last Admin: 06/17/19 09:05 Dose: 40 mg Chlorthalidone (Hygroton Tab*) 25 mg PO DAILY [facility] Last Admin: 06/17/19 10:10 Dose: Not Given Clonazepam (Klonopin Tab(*)) 0.25 mg PO Q8H PRN PRN Reason: Tremors Clonidine HCl (Xvgxbeyx-Mjg-8 0.3 Mg Patch*) 0.3 mg TRANSDERM Q7D [facility] Last Admin: 06/15/19 22:40 Dose: 0.3 mg Heparin Sodium (Porcine) (Heparin Vial(*)) 5,000 units SUBCUT Q8HR [facility] Stop: 06/17/19 23:59 Last Admin: 06/17/19 05:54 Dose: 5,000 units Hydralazine HCl (Apresoline Iv*) 5 mg IV SLOW PU Q6H PRN PRN Reason: Systolic Bp Greater Than:180 Labetalol HCl (Trandate Tab*) 600 mg PO Q8HR [facility] Last Admin: 06/17/19 05:52 Dose: 600 mg Meclizine HCl (Antivert Tab*) 25 mg PO TID PRN PRN Reason: DIZZINESS Last Admin: 06/15/19 22:13 Dose: 25 mg Minoxidil (Loniten Tab*) 40 mg PO BID [facility] Last Admin: 06/17/19 10:10 Dose: Not Given Morphine Sulfate (Morphine Inj (Syringe))*) 2 mg IV Q4H PRN PRN Reason: PAIN - SEVERE Last Admin: 06/16/19 22:48 Dose: 2 mg Nitroglycerin (Nitroglycerin Tab 0.4 Mg*) 0.4 mg SL Q5M PRN PRN Reason: ANGINA Ondansetron HCl (Zofran Inj*) 4 mg IV Q6H PRN PRN Reason: NAUSEA Oxycodone HCl (Roxycodone Tab*) 10 mg PO Q6H PRN PRN Reason: PAIN - MODERATE Pantoprazole Sodium (Protonix Tab*) 40 mg PO BID [facility] Last Admin: 06/17/19 09:05 Dose: 40 mg Primidone (Mysoline Tab(*)) 50 mg PO BEDTIME [facility] Last Admin: 06/16/19 22:48 Dose: 50 mg Ramipril (Altace Cap*) 10 mg PO BID [facility] Last Admin: 06/17/19 10:10 Dose: Not Given Sertraline HCl (Zoloft*) 50 mg PO BEDTIME [facility] Last Admin: 06/16/19 22:46 Dose: 50 mg Spironolactone (Aldactone Tab*) 50 mg PO DAILY [facility] Last Admin: 06/17/19 10:11 Dose: Not Given Topiramate (Topamax(*)) 50 mg PO QAM [facility] Last Admin: 06/17/19 09:05 Dose: 50 mg Topiramate (Topamax(*)) 100 mg PO BEDTIME [facility] Last Admin: 06/16/19 22:46 Dose: 100 mg Trazodone HCl (Desyrel Tab*) 50 mg PO BEDTIME [facility] Last Admin: 06/16/19 22:46 Dose: 50 mg Vital Signs: Temp Pulse Resp BP Pulse Ox 97.4 F 62 18 94/45 97 06/17/19 09:00 06/17/19 09:00 06/17/19 10:33 06/17/19 09:00 06/17/19 09:00 Oxygen Devices in Use Now: None Appearance: Ms. Pate is an older [place] woman who is sitting in bed with LE elevated. She appears to be in no acute distress. Discussion is had via touch up painter in room. Eyes: No Scleral Icterus, PERRLA Ears/Nose/Mouth/Throat: NL Teeth, Lips, Gums, Clear Oropharnyx, Mucous Membranes Moist Neck: NL Appearance and Movements; NL JVP, Trachea Midline Respiratory: Symmetrical Chest Expansion and Respiratory Effort, Clear to Auscultation Cardiovascular: RRR, No Edema, - - Systolic murmur on auscultation; no JVD; S1, S2 present Abdominal: NL Sounds; No Tenderness; No Distention Extremities: No Edema, No Clubbing, Cyanosis, - - RLE with hard cast at ankle wrapped in CDI dressing; cap refill intact; patient able to move distal digits. Neurological: Alert and Oriented x 3, - - Sensation equal and intact distally to b/l LE Result Diagrams: 06/16/19 15:50 06/16/19 15:50 Microbiology and Other Data: Microbiology 06/16/19 03:30 Urine Culture - Final Urine Strep Group B Normal [facility] Assess/Plan/Problems-Billing Assessment: 83yof PMHx HTN, possible PD, essential tremor, vertigo presents s/p mechanical fall and is found to have elevated BP and R trimalleolar fracture. - Patient Problems (1) Trimalleolar fracture of right ankle Comment: -Ortho consulted; thank you for recommendations -NWB RLE -continue splint, ice, elevation -plan for ORIF -RCRI score is 0 points, Class I risk with 3.9% 30-day risk of , [place], or cardiac arrest. This does not take into account the patient's age, which is a risk factor for adverse outcomes. CXR is without acute cardiopulmonary process. EKG with rate of 71, no ST abnormalities. Normal dobutamine stress echo in November 2016. The patient is noted to have a systolic murmur; an echo has been obtained and reveals EF 65-70%, mild , little change from last Echo. Ms. Pate is medically optimized for surgical intervention. (2) Hypertension Comment: -well controlled -in last 48h, patient has received clonidine patch, 0500 doses of labetalol -call out to PCP and she confirms that pt is on 7 anti-hypertensives -based on current BPs, it appears that the patient would benefit from reduction -will continue clonidine patch and d/c other rx with plans to add back as needed (3) Parkinson's disease Comment: -chart shows h/o PD, but no mention in neuro reports -pt does have essential tremor -continue home rx (4) Hyperlipidemia Comment: -continue statin (5) Vertigo Comment: -continue meclizine prn (6) DVT prophylaxis Comment: -heparin SQ; d/c this evening in prep for surgery (7) Full code status Status and Disposition: Inpatient. Discharge when stable.
[2019-06-17] MEDS: Morphine INJ* 2 MG/ML 1 ML SYRINGE (TWO MG - NEW SYRINGE VERSION) IV PRN (10:33)
[2019-06-17] MEDS ORDERED: Buffered Lidocaine 1% SYRIN* 1 ML/SYRINGE INTRADERM ONE (13:35)
[2019-06-17] MEDS: oxyCODONE TAB* 5 MG TAB PO PRN (13:50)
--- NOTE | 2019-06-17 14:05 | PN ---
Progress Note - Progress Note Date of Service: 06/17/19 SOAP: Subjective: []Pt seen and examined at bedside. Her family as well as floor aide help to translate. Denies CP, SOB, dizziness, nausea. R ankle pain is well controlled. She is nervous about surgery, has never has surgery in the past. Has a distant relative who had surgery in the [facility] and did not wake up from surgery, cause unknown. Has several closer relations who have had surgery and tolerated anesthesia well. Objective: []Gen: Appears well, NAD RLE: Splint CDI, able to f/e MTPs, sensation intact to light touch distally, cap refill less than two seconds distally. Assessment: []R ankle fracture Plan: []NWB RLE Elevate 4+ pillows and ice Family instructed to arrive by 930 am tomorrow to help with consent, patient speaks P[place]dein[place] NPO and stop heparin at midnight Vital Signs Temp 97.4 F 06/17/19 11:15 Pulse 63 06/17/19 11:15 Resp 18 06/17/19 13:50 BP 107/38 06/17/19 11:15 Pulse Ox 95 06/17/19 11:15 Intake & Output 06/16/19 06/17/19 06/17/19 18:59 06:59 18:59 Intake Total 240 0 Output Total 0 0 Balance 240 0 Intake: Oral 240 0 Output: Urine 0 0 Laboratory Last Values WBC 6.0 10^3/uL (3.5-10.8) 06/16/19 15:50 RBC 3.72 10^6 /uL (3.70-4.87) 06/16/19 15:50 Hgb 11.7 g/dL (12.0-16.0) L 06/16/19 15:50 Hct 34 % (35-47) L 06/16/19 15:50 MCV 92 fL (80-97) 06/16/19 15:50 MCH 32 pg (27-31) H 06/16/19 15:50 MCHC 34 g/dL (31-36) 06/16/19 15:50 RDW 14 % (10-15) 06/16/19 15:50 Plt Count 241 10^3/uL (150-450) 06/16/19 15:50 MPV 8.3 fL (7.4-10.4) 06/16/19 15:50 Neut % (Auto) 46.1 % 06/16/19 15:50 Lymph % (Auto) 35.4 % 06/16/19 15:50 [place] % (Auto) 16.4 % 06/16/19 15:50 Eos % (Auto) 1.8 % 06/16/19 15:50 Baso % (Auto) 0.3 % 06/16/19 15:50 Absolute Neuts (auto) 2.8 10^3/ul (1.5-7.7) 06/16/19 15:50 Absolute Lymphs (auto) 2.1 10^3/ul (1.0-4.8) 06/16/19 15:50 Absolute Monos (auto) 1.0 10^3/ul (0-0.8) H 06/16/19 15:50 Absolute Eos (auto) 0.1 10^3/ul (0-0.6) 06/16/19 15:50 Absolute Basos (auto) 0.0 10^3/ul (0-0.2) 06/16/19 15:50 Absolute Nucleated RBC 0.0 10^3/ul 06/16/19 15:50 Nucleated RBC % 0.0 06/16/19 15:50 INR (Anticoag Therapy) 1.02 (0.82-1.09) 06/16/19 15:50 APTT 31.8 seconds (26.0-38.0) 06/16/19 15:50 Sodium 137 mmol/L (135-145) 06/16/19 04:42 Potassium 4.3 mmol/L (3.5-5.0) 06/16/19 04:42 Chloride 105 mmol/L (101-111) 06/16/19 04:42 Carbon Dioxide 27 mmol/L (22-32) 06/16/19 04:42 Anion Gap 5 mmol/L (2-11) 06/16/19 04:42 BUN 20 mg/dL (6-24) 06/16/19 15:50 Creatinine 0.71 mg/dL (0.51-0.95) 06/16/19 15:50 Est GFR ( Amer) 95.6 (>60) 06/16/19 15:50 Est GFR (Non-Af Amer) 79.0 (>60) 06/16/19 15:50 BUN/Creatinine Ratio 29.2 (8-20) H 06/16/19 04:42 Glucose 136 mg/dL (70-100) H 06/16/19 04:42 Hemoglobin A1c 5.9 % (4.0-5.6) H 06/16/19 04:42 Calcium 8.9 mg/dL (8.6-10.3) 06/16/19 04:42 Magnesium 1.9 mg/dL (1.9-2.7) 06/16/19 04:42 Total Bilirubin 0.40 mg/dL (0.2-1.0) 06/15/19 18:36 AST 26 U/L (13-39) 06/15/19 18:36 ALT 21 U/L (7-52) 06/15/19 18:36 Alkaline Phosphatase 94 U/L (34-104) 06/15/19 18:36 Troponin I 0.01 ng/mL (<0.04) 06/16/19 04:42 Total Protein 7.5 g/dL (6.4-8.9) 06/15/19 18:36 Albumin 4.2 g/dL (3.2-5.2) 06/15/19 18:36 Globulin 3.3 g/dL (2-4) 06/15/19 18:36 Albumin/Globulin Ratio 1.3 (1-3) 06/15/19 18:36 Triglycerides 121 mg/dL 06/16/19 04:42 Cholesterol 181 mg/dL 06/16/19 04:42 LDL Cholesterol 107 mg/dL 06/16/19 04:42 HDL Cholesterol 49.7 mg/dL 06/16/19 04:42 Urine Color Yellow 06/16/19 03:30 Urine Appearance Cloudy 06/16/19 03:30 Urine pH 6.0 (5-9) 06/16/19 03:30 Ur Specific [place] 1.013 (1.010-1.030) 06/16/19 03:30 Urine Protein Negative (Negative) 06/16/19 03:30 Urine Ketones Negative (Negative) 06/16/19 03:30 Urine Blood 2+ (Negative) A 06/16/19 03:30 Urine Nitrate Negative (Negative) 06/16/19 03:30 Urine Bilirubin Negative (Negative) 06/16/19 03:30 Urine Urobilinogen Negative (Negative) 06/16/19 03:30 Ur Leukocyte Esterase 1+ (Negative) A 06/16/19 03:30 Urine WBC (Auto) 3+(>20/hpf) (Absent) A 06/16/19 03:30 Urine RBC (Auto) 3+(>10/hpf) (Absent) A 06/16/19 03:30 Ur Squamous Epith Cells Present (Absent) A 06/16/19 03:30 Urine Bacteria Absent (Absent) 06/16/19 03:30 Hyaline Casts Present (Absent) A 06/16/19 03:30 Urine Glucose Negative (Negative) 06/16/19 03:30 Blood Type A Positive 06/15/19 18:36 Antibody Screen Negative 06/15/19 18:36
[2019-06-17] MEDS ORDERED: Labetalol TAB* 300 MG PO SCH (14:51)
[2019-06-17] MEDS ORDERED: amLODIPine TAB* 5 MG PO SCH (14:51)
[2019-06-17] MEDS: traZODone TAB* 50 MG TAB PO SCH (21:52)
[2019-06-17] MEDS: Primidone TAB(*) 50 MG PO SCH (21:52)
[2019-06-17] MEDS: Topiramate TAB(*) 100 MG PO SCH (21:52)
[2019-06-17] MEDS: Sertraline* 50 MG TAB PO SCH (21:52)
[2019-06-18] MEDS: Morphine INJ* 2 MG/ML 1 ML SYRINGE (TWO MG - NEW SYRINGE VERSION) IV PRN ×2 (03:57→18:57)
[2019-06-18] MEDS: Lactated Ringers 1000 ML Bag* 1,000 ML IV SCH ×2 (05:21→17:40)
[2019-06-18] MEDS: Atorvastatin* 40 MG TAB PO SCH (09:32)
[2019-06-18] MEDS: Topiramate TAB(*) 25 MG PO SCH (09:32)
[2019-06-18] MEDS: Aspirin 81 mg CHEW TAB* 81 MG TAB.CHEW PO SCH (09:32)
[2019-06-18] MEDS: Pantoprazole TAB * 40 MG TAB PO SCH ×2 (09:32→22:57)
[2019-06-18] MEDS ORDERED: ceFAZolin 2 GM in NS PREMIX(*) 2 GM/100 ML BAG IVPB ONE (11:57)
[2019-06-18] MEDS ORDERED: Bupivacaine 0.5%* 50 ML MDV VIAL ONE (11:58)
[2019-06-18] MEDS ORDERED: Propofol* 10 MG/ML 20 ML BTL ONE (12:13)
[2019-06-18] MEDS ORDERED: fentaNYL* 50 MCG/ML 2 ML VIAL (100 MCG VIAL) ONE ×2 (12:16→14:16)
[2019-06-18] MEDS ORDERED: Lidocaine 2% PF * 5 ML VIAL ONE (12:26)
--- NOTE | 2019-06-18 12:48 | PN ---
Subjective Date of Service: 06/18/19 Interval History: Ms. Pate continues to have 8/10 pain in the R ankle; pain is exacerbated by movement. She is nervous for surgery, but otherwise doing well. She has no other complaints today. BP has been well controlled throughout stay. Patient reports elevated BP at home, but has not had cuff/equipment inspected by PCP. She reports dizziness/ LH with standing at times, which is the cause of her most recent fall. Objective Active Medications: Acetaminophen (Tylenol Tab*) 650 mg PO Q6H PRN PRN Reason: MILD PAIN or TEMP > 100.4 Aspirin (Aspirin 81 Mg Chew Tab*) 81 mg PO DAILY [facility] Last Admin: 06/18/19 09:32 Dose: Not Given Atorvastatin Calcium (Lipitor*) 40 mg PO DAILY [facility] Last Admin: 06/18/19 09:32 Dose: Not Given Clonazepam (Klonopin Tab(*)) 0.25 mg PO Q8H PRN PRN Reason: Tremors Clonidine HCl (Fditoann-Hja-3 0.3 Mg Patch*) 0.3 mg TRANSDERM Q7D [facility] Last Admin: 06/15/19 22:40 Dose: 0.3 mg Lactated Ringer's (Lactated Ringers 1000 Ml Bag*) 1,000 mls @ 125 mls/hr IV PER RATE [facility] Last Admin: 06/18/19 05:21 Dose: 125 mls/hr Meclizine HCl (Antivert Tab*) 25 mg PO TID PRN PRN Reason: DIZZINESS Last Admin: 06/15/19 22:13 Dose: 25 mg Morphine Sulfate (Morphine Inj (Syringe))*) 2 mg IV Q4H PRN PRN Reason: PAIN - SEVERE Last Admin: 06/18/19 03:57 Dose: 2 mg Nitroglycerin (Nitroglycerin Tab 0.4 Mg*) 0.4 mg SL Q5M PRN PRN Reason: ANGINA Ondansetron HCl (Zofran Inj*) 4 mg IV Q6H PRN PRN Reason: NAUSEA Oxycodone HCl (Roxycodone Tab*) 10 mg PO Q6H PRN PRN Reason: PAIN - MODERATE Last Admin: 06/17/19 13:50 Dose: 10 mg Pantoprazole Sodium (Protonix Tab*) 40 mg PO BID [facility] Last Admin: 06/18/19 09:32 Dose: Not Given Primidone (Mysoline Tab(*)) 50 mg PO BEDTIME [facility] Last Admin: 06/17/19 21:52 Dose: 50 mg Sertraline HCl (Zoloft*) 50 mg PO BEDTIME [facility] Last Admin: 06/17/19 21:52 Dose: 50 mg Topiramate (Topamax(*)) 50 mg PO QAM [facility] Last Admin: 06/18/19 09:32 Dose: Not Given Topiramate (Topamax(*)) 100 mg PO BEDTIME [facility] Last Admin: 06/17/19 21:52 Dose: 100 mg Trazodone HCl (Desyrel Tab*) 50 mg PO BEDTIME [facility] Last Admin: 06/17/19 21:52 Dose: 50 mg Vital Signs: Temp Pulse Resp BP Pulse Ox 98.5 F 60 18 122/49 98 06/18/19 07:33 06/18/19 07:33 06/18/19 08:00 06/18/19 07:33 06/18/19 07:33 Oxygen Devices in Use Now: None Appearance: Ms. Pate is an older [place] woman who is sitting up in bed. She appears to be in no acute distress. She is pleasant, cooperative. She is seen with at bedside with staff member who speaks [place]. Eyes: No Scleral Icterus Ears/Nose/Mouth/Throat: NL Teeth, Lips, Gums, Clear Oropharnyx, Mucous Membranes Moist Neck: Trachea Midline Respiratory: Symmetrical Chest Expansion and Respiratory Effort, Clear to Auscultation Cardiovascular: NL Sounds; No Murmurs; No JVD, RRR, No Edema Abdominal: NL Sounds; No Tenderness; No Distention, No Hepatosplenomegaly Extremities: No Edema, No Clubbing, Cyanosis, - - R ankle cast in place with CDI DENISE over cast. Sensation intact; cap refill intact; able to move distal digits. Neurological: Alert and Oriented x 3, NL Sensation Result Diagrams: 06/16/19 15:50 06/16/19 15:50 Microbiology and Other Data: Microbiology 06/16/19 03:30 Urine Culture - Final Urine Strep Group B Normal Mary Assess/Plan/Problems-Billing Assessment: 83yof PMHx HTN, possible PD, essential tremor, vertigo presents s/p mechanical fall and is found to have elevated BP and R trimalleolar fracture. - Patient Problems (1) Trimalleolar fracture of right ankle Comment: -Ortho consulted; thank you for recommendations -NWB RLE -continue splint, ice, elevation -plan for ORIF today -RCRI score is 0 points, Class I risk with 3.9% 30-day risk of , [place], or cardiac arrest. This does not take into account the patient's age, which is a risk factor for adverse outcomes. CXR is without acute cardiopulmonary process. EKG with rate of 71, no ST abnormalities. Normal dobutamine stress echo in November 2016. The patient is noted to have a systolic murmur; an echo has been obtained and reveals EF 65-70%, mild , little change from last Echo. Ms. Pate is medically optimized for surgical intervention. (2) Hypertension Comment: -well controlled -since admission, patient has received clonidine patch, 0500 doses of labetalol -call out to PCP and she confirms that pt is on 7 anti-hypertensives due to continued elevated BP despite treatment -differentials for elevated BP readings include white coat hypertension, elevated BP readings due to UE tremors -will continue clonidine patch and d/c other rx with plans to add back as needed -BP well controlled on clonidine patch only (3) Parkinson's disease Comment: -chart shows h/o PD, but no mention in neuro reports -pt does have essential tremor -continue home rx (4) Hyperlipidemia Comment: -continue statin (5) Vertigo Comment: -continue meclizine prn (6) DVT prophylaxis Comment: -heparin SQ on hold for surgery (7) Full code status Status and Disposition: Inpatient. Discharge when stable.
[2019-06-18] MEDS ORDERED: Naloxone* 0.4 MG/ML 1 ML VIAL IV PRN (13:07)
--- NOTE | 2019-06-18 14:06 | OP ---
Operative Report - Blank - Operative Report Date of Operation: 06/18/19 Note: PATIENT: Janell Pate DATE OF : 1935 DATE OF SURGERY: 06/18/2019 SURGEON: Gabriel Mora MD QUALITY CONTROL TECHNICIAN: JOSH Carlson, whos assistance was necessary for positioning, retraction, help with instrumentation, and closure. ANESTHESIOLOGIST: Dr. Clrak PREOPERATIVE DIAGNOSIS: Right trimalleolar ankle fracture/dislocation POSTOPERATIVE DIAGNOSIS: Right trimalleolar ankle fracture/dislocation OPERATION: Right trimalleolar ankle fracture open reduction and internal fixation of medial and lateral malleoli. ANESTHESIA: General IMPLANTS: Arthrex ankle fracture set plate and screws TOURNIQUET TIME: Less than 1 hour with a well-padded thigh tourniquet at 250mmHg SPECIMENS: none ESTIMATED BLOOD LOSS: minimal COMPLICATIONS: none STATUS: Stable from the operating room to the recovery room and then home. INDICATIONS FOR PROCEDURE: Ms. Pate sustained a fall with a right ankle fracture dislocation. Both operative and non operative treatment alternatives were reviewed. Further, the nature and risks of surgery were reviewed in careful detail in the pre-operative holding area. Our discussions regarding the risks of surgery included, but were not limited to, infection, wound problems, nerve injury, neuroma, RSD, persistent symptoms, blood clot, nonunion, malunion , post-traumatic arthritis, hardware failure, failure of the surgery, and even the remote chance of catastrophic complication. DESCRIPTION OF PROCEDURE: The patient was seen in the preoperative holding unit and informed written consent was obtained. The appropriate extremity was marked. The patient was then brought to the operating room and carefully positioned on the operating room table. Anesthesia was induced. All bony prominences were padded with great care. A well-padded thigh tourniquet was placed. A chlorhexidine based pre- scrub was performed followed by a chloraprep prep and drape in standard sterile fashion. A surgical safety pause was then conducted in which we confirmed the appropriate patient, extremity, planned procedure, availability of equipment, indication and administration of prophylactic antibiotics, and DVT prophylaxis in the form of a compression boot on the non-surgical extremity. I began with Esmarch exsanguination of the limb and inflated the tourniquet. I then utilized a laterally based incision overlying the distal fibula. Great care was taken to protect the superficial peroneal nerve, which was not visualized within the field of view. I dissected down through the soft tissue layers to expose the distal fibula. I then exposed the fracture. Fracture hematoma was removed. I gained a reduction utilizing a pointed reduction clamp. I placed an Arthrex distal fibula plate laterally and then confirmed the reduction and the position of the plate fluoroscopically. I placed screws to hold the plate to the bone. The bone was of very poor quality, so I placed 2 trans-syndesmotic screws to help buttress the plate and secure the fixation. The provisional fixation was removed and then I again confirmed fluoroscopically the appropriate position of the plate and screw lengths. I made a small incision over the medial malleolus and placed 2 guidewires for 4.0 mm cane and screws. I then placed two 4.0 mm cannulated screws with washers. I then removed the guidewires and obtained fluoroscopic images. I also performed a posteriorly directed stress test and there was no posterior instability appreciated, so I elected to treat the posterior malleolar fracture in a closed manner. At this point, we irrigated the wounds copiously and then closed in layers meticulously utilizing 3-0 Monocryl for the deep and subdermal layers and 3-0 nylon for the skin. A sterile dressing was then applied followed by a splint with the ankle in a neutral position. The patient was then awakened from anesthesia and transferred to the recovery room in stable condition. There were no complications. All needle and sponge counts were correct at the end of the case. ATTESTATION: I attest I was present and scrubbed and performed the critical portions of the procedure myself. POSTOPERATIVE PLAN: The postop plan is for [id number] for an anticipated duration of 6 weeks. Follow-up will be in 2 weeks. At that time we will likely transition into a short-leg cast. We will plan on one month of Lovenox for DVT prophylaxis.
[2019-06-18] MEDS: fentaNYL* 50 MCG/ML 2 ML VIAL (100 MCG VIAL) IV PRN ×2 (14:16→14:22)
[2019-06-18] MEDS: ceFAZolin 1 GM* X 3 DOSES POST-OP Q8H (AddVan) IVPB SCH ×2 (21:10)
[2019-06-18] MEDS: Primidone TAB(*) 50 MG PO SCH (22:56)
[2019-06-18] MEDS: traZODone TAB* 50 MG TAB PO SCH (22:56)
[2019-06-18] MEDS: Sertraline* 50 MG TAB PO SCH (22:57)
[2019-06-18] MEDS: Topiramate TAB(*) 100 MG PO SCH (22:57)
[2019-06-18] MEDS: oxyCODONE TAB* 5 MG TAB PO PRN (23:07)
[2019-06-19] MEDS: Morphine INJ* 2 MG/ML 1 ML SYRINGE (TWO MG - NEW SYRINGE VERSION) IV PRN ×2 (03:50→11:10)
[2019-06-19] MEDS: Lactated Ringers 1000 ML Bag* 1,000 ML IV SCH (03:54)
[2019-06-19] MEDS: ceFAZolin 1 GM* X 3 DOSES POST-OP Q8H (AddVan) IVPB SCH ×4 (04:04→11:24)
[2019-06-19 05:26] LABS: ABS Eosinophils 0.2 10^3/ul (0-0.6); ABS Lymphocytes 2.1 10^3/ul (1.0-4.8); ABS Monocytes 1.4 10^3/ul (0-0.8); ABS Neutrophils 4.4 10^3/ul (1.5-7.7); Eosinophil % 2.6 %; Hematocrit 32 % (35-47); Hemoglobin 11.1 g/dL (12.0-16.0); Lymphocyte % 25.7 %; Mean Corpuscular HGB Conc 35 g/dL (31-36); Mean Corpuscular Hemoglobin 32 pg (27-31); Mean Corpuscular Volume 92 fL (80-97); Mean Platelet Volume 8.3 fL (7.4-10.4); Platelet Count 226 10^3/uL (150-450); Red Blood Count 3.49 10^6 /uL (3.70-4.87); Red Cell Distribution Width 14 % (10-15)
[2019-06-19] MEDS ORDERED: Benzocaine/Menthol LOZ* 1 LOZENGE PO PRN (05:27)
[2019-06-19] MEDS: oxyCODONE TAB* 5 MG TAB PO PRN (08:48)
[2019-06-19] MEDS: Pantoprazole TAB * 40 MG TAB PO SCH ×2 (08:48→20:50)
[2019-06-19] MEDS: Enoxaparin(*) 40 MG/0.4 ML SYR SUBCUT SCH (08:48)
[2019-06-19] MEDS: Aspirin 81 mg CHEW TAB* 81 MG TAB.CHEW PO SCH (08:48)
[2019-06-19] MEDS: Topiramate TAB(*) 25 MG PO SCH (08:48)
[2019-06-19] MEDS: Atorvastatin* 40 MG TAB PO SCH (08:48)
[2019-06-19] MEDS ORDERED: Polyethylene Glycol 3350* 17 GM PACKET PO PRN (10:13)
[2019-06-19] MEDS: Senna TAB 8.6 mg* TAB PO SCH (11:10)
--- NOTE | 2019-06-19 15:19 | PN ---
Subjective Date of Service: 06/19/19 Interval History: Patient's daughter in law, Shaylee, translated during exam today. Patient has right lower extremity pain, but says it feels much better with pain medication. Denies muscle spasms, fever/chills, difficulty breathing, chest pain. Has not had BM in multiple days and says its hard for her, psychologically, to have a BM at the hospital. Denies feeling constipation. No acute events per nursing. Objective Active Medications: Acetaminophen (Tylenol Tab*) 650 mg PO Q6H PRN PRN Reason: MILD PAIN or TEMP > 100.4 Aspirin (Aspirin 81 Mg Chew Tab*) 81 mg PO DAILY [facility] Last Admin: 06/19/19 08:48 Dose: 81 mg Atorvastatin Calcium (Lipitor*) 40 mg PO DAILY [facility] Last Admin: 06/19/19 08:48 Dose: 40 mg Clonazepam (Klonopin Tab(*)) 0.25 mg PO Q8H PRN PRN Reason: Tremors Clonidine HCl (Tugaaeyz-Ebt-0 0.3 Mg Patch*) 0.3 mg TRANSDERM Q7D [facility] Last Admin: 06/15/19 22:40 Dose: 0.3 mg Enoxaparin Sodium (Lovenox(*)) 40 mg SUBCUT DAILY [facility] Last Admin: 06/19/19 08:48 Dose: 40 mg Lactated Ringer's (Lactated Ringers 1000 Ml Bag*) 1,000 mls @ 125 mls/hr IV PER RATE [facility] Last Admin: 06/19/19 03:54 Dose: 125 mls/hr Meclizine HCl (Antivert Tab*) 25 mg PO TID PRN PRN Reason: DIZZINESS Last Admin: 06/15/19 22:13 Dose: 25 mg Morphine Sulfate (Morphine Inj (Syringe))*) 2 mg IV Q4H PRN PRN Reason: PAIN - SEVERE Last Admin: 06/19/19 11:10 Dose: 2 mg Nitroglycerin (Nitroglycerin Tab 0.4 Mg*) 0.4 mg SL Q5M PRN PRN Reason: ANGINA Ondansetron HCl (Zofran Inj*) 4 mg IV Q6H PRN PRN Reason: NAUSEA Oxycodone HCl (Roxycodone Tab*) 10 mg PO Q6H PRN PRN Reason: PAIN - MODERATE Last Admin: 06/19/19 08:48 Dose: 10 mg Oxycodone HCl (Roxycodone Tab*) 5 mg PO Q5H PRN PRN Reason: PAIN - MODERATE Last Admin: 06/18/19 23:07 Dose: 5 mg Pantoprazole Sodium (Protonix Tab*) 40 mg PO BID [facility] Last Admin: 06/19/19 08:48 Dose: 40 mg Polyethylene Glycol/Electrolytes (Miralax*) 17 gm PO DAILY PRN PRN Reason: CONSTIPATION Primidone (Mysoline Tab(*)) 50 mg PO BEDTIME [facility] Last Admin: 06/18/19 22:56 Dose: 50 mg Senna (Senokot 8.6 Mg Tab*) 1 tab PO DAILY [facility] Last Admin: 06/19/19 11:10 Dose: 1 tab Sertraline HCl (Zoloft*) 50 mg PO BEDTIME [facility] Last Admin: 06/18/19 22:57 Dose: 50 mg Throat Lozenges (Chloraseptic Bucky*) 1 bucky PO Q2H PRN PRN Reason: SORE THROAT Topiramate (Topamax(*)) 50 mg PO QAM [facility] Last Admin: 06/19/19 08:48 Dose: 50 mg Topiramate (Topamax(*)) 100 mg PO BEDTIME [facility] Last Admin: 06/18/19 22:57 Dose: 100 mg Trazodone HCl (Desyrel Tab*) 50 mg PO BEDTIME [facility] Last Admin: 06/18/19 22:56 Dose: 50 mg Vital Signs - 8 hr 06/19/19 06/19/19 06/19/19 07:15 07:44 07:50 Temperature 99.1 F Pulse Rate 66 Respiratory 20 20 Rate Blood Pressure 132/52 (mmHg) O2 Sat by Pulse 94 94 Oximetry 06/19/19 06/19/19 06/19/19 08:48 11:03 11:10 Temperature Pulse Rate Respiratory 16 20 20 Rate Blood Pressure (mmHg) O2 Sat by Pulse Oximetry 06/19/19 06/19/19 11:15 11:57 Temperature 99.1 F Pulse Rate 62 Respiratory 18 20 Rate Blood Pressure 124/45 (mmHg) O2 Sat by Pulse 95 Oximetry Oxygen Devices in Use Now: None Appearance: Obese, elderly white female, sitting in chair, appearing in NAD Eyes: No Scleral Icterus, - - PERRL Ears/Nose/Mouth/Throat: Mucous Membranes Moist Neck: NL Appearance and Movements; NL JVP Respiratory: Symmetrical Chest Expansion and Respiratory Effort, Clear to Auscultation Cardiovascular: NL Sounds; No Murmurs; No JVD, RRR Abdominal: - - abd soft, nontender, nondistended Extremities: No Clubbing, Cyanosis, - - right LE in DENISE wrap to knee but no obvious edema; other extremities without edema Skin: No Rash or Ulcers Neurological: Alert and Oriented x 3, NL Muscle Strength and Tone Result Diagrams: 06/19/19 05:18 06/16/19 15:50 Microbiology and Other Data: Microbiology 06/16/19 03:30 Urine Culture - Final Urine Strep Group B Normal Mary Assess/Plan/Problems-Billing Assessment: 83yof PMHx HTN, possible PD, essential tremor, vertigo presents s/p mechanical fall and is found to have elevated BP and R trimalleolar fracture. - Patient Problems (1) Trimalleolar fracture of right ankle Current Visit: Yes Status: Acute Code(s): S82.851A - DISPLACED TRIMALLEOLAR FRACTURE OF RIGHT LOWER LEG, INIT SNOMED Code(s): 207946347 Comment: -Ortho following. ORIF performed 06/18/19 -NWB RLE -continue splint, ice, elevation -continue pain control and bowel regimen -PT recommends MARIE, family discussing DC plan (2) Hypertension Current Visit: Yes Status: Acute Code(s): I10 - ESSENTIAL (PRIMARY) HYPERTENSION SNOMED Code(s): 39348105 Comment: -PCP and she confirms that pt is on 7 anti-hypertensives due to continued elevated BP despite treatment. Cardiology records demonstrate Renal US without arterial stenosis -will continue clonidine patch and d/c other rx with plans to add back as needed -BP well controlled on clonidine patch only still today -unclear why so poorly controlled outpatient, possibly inaccurate home readings plus white coat syndrome (3) Hyperlipidemia Current Visit: Yes Status: Acute Code(s): E78.5 - HYPERLIPIDEMIA, UNSPECIFIED SNOMED Code(s): 30262164 Comment: -continue statin (4) Vertigo Current Visit: Yes Status: Acute Code(s): R42 - DIZZINESS AND GIDDINESS SNOMED Code(s): 514581872 Comment: -continue meclizine prn (5) Essential tremor Current Visit: Yes Status: Acute Code(s): G25.0 - ESSENTIAL TREMOR SNOMED Code(s): 228650696 Comment: -previously hx of parkinson's documented, though I believe this is an error as she is known to have essential tremor -continue primodone (6) DVT prophylaxis Current Visit: Yes Status: Acute Code(s): Z29.9 - ENCOUNTER FOR PROPHYLACTIC MEASURES, UNSPECIFIED SNOMED Code(s): 073596148 Comment: -lovenox (7) Full code status Current Visit: Yes Status: Acute Code(s): Z78.9 - OTHER SPECIFIED HEALTH STATUS SNOMED Code(s): 279856506 Status and Disposition: Inpatient. Discharge when stable. Pending disposition, PT recs MARIE
[2019-06-19] MEDS: Primidone TAB(*) 50 MG PO SCH (20:49)
[2019-06-19] MEDS: traZODone TAB* 50 MG TAB PO SCH (20:49)
[2019-06-19] MEDS: Sertraline* 50 MG TAB PO SCH (20:50)
[2019-06-19] MEDS: Topiramate TAB(*) 100 MG PO SCH (20:50)
[2019-06-20] MEDS: Morphine INJ* 2 MG/ML 1 ML SYRINGE (TWO MG - NEW SYRINGE VERSION) IV PRN (00:16)
[2019-06-20] MEDS: oxyCODONE TAB* 5 MG TAB PO PRN ×2 (03:50→14:23)
[2019-06-20] MEDS: Enoxaparin(*) 40 MG/0.4 ML SYR SUBCUT SCH (09:30)
[2019-06-20] MEDS: Atorvastatin* 40 MG TAB PO SCH (09:30)
[2019-06-20] MEDS: Senna TAB 8.6 mg* TAB PO SCH ×2 (09:31→10:48)
[2019-06-20] MEDS: Topiramate TAB(*) 25 MG PO SCH (09:32)
[2019-06-20] MEDS: Aspirin 81 mg CHEW TAB* 81 MG TAB.CHEW PO SCH (09:33)
[2019-06-20] MEDS: Pantoprazole TAB * 40 MG TAB PO SCH ×2 (09:33→20:19)
--- NOTE | 2019-06-20 09:48 | PN ---
Subjective Date of Service: 06/20/19 Interval History: Patient's son is at bedside to translate for evaluation. No acute overnight events per nursing. Patient continues to have pain, but it is better with pain medication. Still no bowel movement. Denies symptomatic feeling of constipation, bloating, or abd pain. Denies difficulty breathing, headache, or chest pain. Denies muscle spasms of right leg. Patient and family agreeable to MARIE. Objective Active Medications: Acetaminophen (Tylenol Tab*) 650 mg PO Q6H PRN PRN Reason: MILD PAIN or TEMP > 100.4 Aspirin (Aspirin 81 Mg Chew Tab*) 81 mg PO DAILY [facility] Last Admin: 06/20/19 09:33 Dose: 81 mg Atorvastatin Calcium (Lipitor*) 40 mg PO DAILY [facility] Last Admin: 06/20/19 09:30 Dose: 40 mg Clonazepam (Klonopin Tab(*)) 0.25 mg PO Q8H PRN PRN Reason: Tremors Clonidine HCl (Mcgrwjgt-Wvp-5 0.3 Mg Patch*) 0.3 mg TRANSDERM Q7D [facility] Last Admin: 06/15/19 22:40 Dose: 0.3 mg Enoxaparin Sodium (Lovenox(*)) 40 mg SUBCUT DAILY [facility] Last Admin: 06/20/19 09:30 Dose: 40 mg Meclizine HCl (Antivert Tab*) 25 mg PO TID PRN PRN Reason: DIZZINESS Last Admin: 06/15/19 22:13 Dose: 25 mg Morphine Sulfate (Morphine Inj (Syringe))*) 2 mg IV Q4H PRN PRN Reason: PAIN - SEVERE Last Admin: 06/20/19 00:16 Dose: 2 mg Nitroglycerin (Nitroglycerin Tab 0.4 Mg*) 0.4 mg SL Q5M PRN PRN Reason: ANGINA Ondansetron HCl (Zofran Inj*) 4 mg IV Q6H PRN PRN Reason: NAUSEA Oxycodone HCl (Roxycodone Tab*) 10 mg PO Q6H PRN PRN Reason: PAIN - MODERATE Last Admin: 06/19/19 08:48 Dose: 10 mg Oxycodone HCl (Roxycodone Tab*) 5 mg PO Q5H PRN PRN Reason: PAIN - MODERATE Last Admin: 06/20/19 03:50 Dose: 5 mg Pantoprazole Sodium (Protonix Tab*) 40 mg PO BID [facility] Last Admin: 06/20/19 09:33 Dose: 40 mg Polyethylene Glycol/Electrolytes (Miralax*) 17 gm PO DAILY PRN PRN Reason: CONSTIPATION Primidone (Mysoline Tab(*)) 50 mg PO BEDTIME [facility] Last Admin: 06/19/19 20:49 Dose: 50 mg Senna (Senokot 8.6 Mg Tab*) 1 tab PO DAILY [facility] Last Admin: 06/20/19 09:31 Dose: 1 tab Sertraline HCl (Zoloft*) 50 mg PO BEDTIME [facility] Last Admin: 06/19/19 20:50 Dose: 50 mg Throat Lozenges (Chloraseptic Bucky*) 1 bucky PO Q2H PRN PRN Reason: SORE THROAT Last Admin: 06/19/19 20:54 Dose: 1 bucky Topiramate (Topamax(*)) 50 mg PO QAM [facility] Last Admin: 06/20/19 09:32 Dose: 50 mg Topiramate (Topamax(*)) 100 mg PO BEDTIME [facility] Last Admin: 06/19/19 20:50 Dose: 100 mg Trazodone HCl (Desyrel Tab*) 50 mg PO BEDTIME [facility] Last Admin: 06/19/19 20:49 Dose: 50 mg Vital Signs - 8 hr 06/20/19 06/20/19 06/20/19 03:35 03:50 06:00 Temperature 98 F Pulse Rate 42 Respiratory 18 18 18 Rate Blood Pressure 146/52 (mmHg) O2 Sat by Pulse 98 Oximetry 06/20/19 07:47 Temperature 99.2 F Pulse Rate 59 Respiratory 20 Rate Blood Pressure 128/52 (mmHg) O2 Sat by Pulse 96 Oximetry Oxygen Devices in Use Now: None Appearance: Elderly white female, sitting in chair, appearing comfortable and in NAD Eyes: No Scleral Icterus, - - PERRL Ears/Nose/Mouth/Throat: Mucous Membranes Moist Neck: NL Appearance and Movements; NL JVP Respiratory: Symmetrical Chest Expansion and Respiratory Effort, Clear to Auscultation Cardiovascular: NL Sounds; No Murmurs; No JVD, RRR Abdominal: - - abd soft, nontender, nondistended Extremities: No Clubbing, Cyanosis, - - right LE in splint and DENISE wrap to knee ; no appreciable edema Skin: No Rash or Ulcers Neurological: Alert and Oriented x 3, NL Muscle Strength and Tone, - - sensation to light touch intact in right toes, able to move toes Result Diagrams: 06/19/19 05:18 06/16/19 15:50 Microbiology and Other Data: Microbiology 06/16/19 03:30 Urine Culture - Final Urine Strep Group B Normal Mary Assess/Plan/Problems-Billing Assessment: 83yof PMHx HTN, possible PD, essential tremor, vertigo presents s/p mechanical fall and is found to have elevated BP and R trimalleolar fracture. - Patient Problems (1) Trimalleolar fracture of right ankle Current Visit: Yes Status: Acute Code(s): S82.851A - DISPLACED TRIMALLEOLAR FRACTURE OF RIGHT LOWER LEG, INIT SNOMED Code(s): 835229187 Comment: -Ortho following. ORIF performed 06/18/19 -NWB RLE -continue splint, ice, elevation -continue pain control and bowel regimen. Increasing bowel regimen today -PT recommends MARIE, patient agreeable (2) Hypertension Current Visit: Yes Status: Acute Code(s): I10 - ESSENTIAL (PRIMARY) HYPERTENSION SNOMED Code(s): 19197506 Comment: -PCP and she confirms that pt is on 7 anti-hypertensives due to continued elevated BP despite treatment. -Cardiology records demonstrate Renal US without arterial stenosis -BP well controlled on clonidine patch only -unclear why so poorly controlled outpatient, possibly inaccurate home readings plus white coat syndrome (3) Hyperlipidemia Current Visit: Yes Status: Acute Code(s): E78.5 - HYPERLIPIDEMIA, UNSPECIFIED SNOMED Code(s): 67366884 Comment: -continue statin (4) Vertigo Current Visit: Yes Status: Acute Code(s): R42 - DIZZINESS AND GIDDINESS SNOMED Code(s): 037787465 Comment: -continue meclizine prn (5) Essential tremor Current Visit: Yes Status: Acute Code(s): G25.0 - ESSENTIAL TREMOR SNOMED Code(s): 405415833 Comment: -previously hx of parkinson's documented, though I believe this is an error as she is known to have essential tremor -continue primodone (6) DVT prophylaxis Current Visit: Yes Status: Acute Code(s): Z29.9 - ENCOUNTER FOR PROPHYLACTIC MEASURES, UNSPECIFIED SNOMED Code(s): 319955646 Comment: -lovenox (7) Full code status Current Visit: Yes Status: Acute Code(s): Z78.9 - OTHER SPECIFIED HEALTH STATUS SNOMED Code(s): 034954933 Status and Disposition: Inpatient. Discharge when stable. MARIE placement pending
[2019-06-20] MEDS: Polyethylene Glycol 3350* 17 GM PACKET PO SCH (10:48)
--- NOTE | 2019-06-20 14:16 | PN ---
Progress Note - Progress Note Date of Service: 06/20/19 SOAP: Subjective: Pt is doing well. Pain controlled. Denies F/C, CP/SOB or calf pain Objective: PE- 83 y/o WDWN F NAD RLE- splint c/d/i, knee NT, brisk cap refill, +F/E toes, SILT distally Vital Signs Temp Pulse Resp BP Pulse Ox 98 F 65 22 124/53 95 06/20/19 11:46 06/20/19 11:46 06/20/19 11:46 06/20/19 11:46 06/20/19 11:46 Assessment: S/P Right ankle ORIF of trimal fracture on 06/18 Plan: Cont pain control Lovenox DVT prophylaxis x 1 month post op NWB RLE Keep splint c/d/i F/U Dr. Mora 14 days post op
[2019-06-20] MEDS: Sertraline* 50 MG TAB PO SCH (20:19)
[2019-06-20] MEDS: Docusate CAP* 100 MG PO SCH (20:19)
[2019-06-20] MEDS: Topiramate TAB(*) 100 MG PO SCH (20:19)
[2019-06-20] MEDS: Primidone TAB(*) 50 MG PO SCH (20:19)
[2019-06-20] MEDS: traZODone TAB* 50 MG TAB PO SCH (20:19)
[2019-06-21] MEDS: Polyethylene Glycol 3350* 17 GM PACKET PO SCH (07:55)
[2019-06-21] MEDS: Enoxaparin(*) 40 MG/0.4 ML SYR SUBCUT SCH (07:55)
[2019-06-21] MEDS: Atorvastatin* 40 MG TAB PO SCH (07:56)
[2019-06-21] MEDS: Senna TAB 8.6 mg* TAB PO SCH (07:56)
[2019-06-21] MEDS: Topiramate TAB(*) 25 MG PO SCH (07:57)
[2019-06-21] MEDS: Docusate CAP* 100 MG PO SCH (07:57)
[2019-06-21] MEDS: Pantoprazole TAB * 40 MG TAB PO SCH ×2 (07:57→20:14)
[2019-06-21] MEDS: Aspirin 81 mg CHEW TAB* 81 MG TAB.CHEW PO SCH (07:57)
[2019-06-21] MEDS: oxyCODONE TAB* 5 MG TAB PO PRN ×2 (07:58→20:15)
--- NOTE | 2019-06-21 09:14 | PN ---
Progress Note - Progress Note Date of Service: 06/21/19 SOAP: Subjective: Pt is doing well. Son is unavailable to translate. Says she is "ok" Objective: PE- 83 y/o WDWN F NAD RLE- splint c/d/i, knee NT, brisk cap refill, +F/E toes, SILT distally Vital Signs Temp Pulse Resp BP Pulse Ox 98 F 68 20 154/63 95 06/21/19 07:14 06/21/19 07:14 06/21/19 07:58 06/21/19 07:14 06/21/19 07:31 Assessment: S/P Right ankle ORIF of trimal fracture on 06/18 Plan: Cont pain control Lovenox DVT prophylaxis x 1 month post op NWB RLE Keep splint c/d/i F/U Dr. Mora 14 days post op
[2019-06-21] MEDS ORDERED: Magnesium Hydroxide LIQ* 30 ML UDC PO PRN (12:48)
--- NOTE | 2019-06-21 12:52 | PN ---
Subjective Date of Service: 06/21/19 Interval History: No acute events overnight. Pt reporting mod ankle pain improved with oxy, as well as significant constipation. Objective Active Medications: Acetaminophen (Tylenol Tab*) 650 mg PO Q6H PRN PRN Reason: MILD PAIN or TEMP > 100.4 Aspirin (Aspirin 81 Mg Chew Tab*) 81 mg PO DAILY [facility] Last Admin: 06/21/19 07:57 Dose: 81 mg Atorvastatin Calcium (Lipitor*) 40 mg PO DAILY [facility] Last Admin: 06/21/19 07:56 Dose: 40 mg Clonazepam (Klonopin Tab(*)) 0.25 mg PO Q8H PRN PRN Reason: Tremors Clonidine HCl (Ymejxufs-Sgp-4 0.3 Mg Patch*) 0.3 mg TRANSDERM Q7D [facility] Last Admin: 06/15/19 22:40 Dose: 0.3 mg Enoxaparin Sodium (Lovenox(*)) 40 mg SUBCUT DAILY [facility] Last Admin: 06/21/19 07:55 Dose: 40 mg Meclizine HCl (Antivert Tab*) 25 mg PO TID PRN PRN Reason: DIZZINESS Last Admin: 06/15/19 22:13 Dose: 25 mg Morphine Sulfate (Morphine Inj (Syringe))*) 2 mg IV Q4H PRN PRN Reason: PAIN - SEVERE Last Admin: 06/20/19 00:16 Dose: 2 mg Nitroglycerin (Nitroglycerin Tab 0.4 Mg*) 0.4 mg SL Q5M PRN PRN Reason: ANGINA Ondansetron HCl (Zofran Inj*) 4 mg IV Q6H PRN PRN Reason: NAUSEA Oxycodone HCl (Roxycodone Tab*) 10 mg PO Q6H PRN PRN Reason: PAIN - MODERATE Last Admin: 06/19/19 08:48 Dose: 10 mg Oxycodone HCl (Roxycodone Tab*) 5 mg PO Q5H PRN PRN Reason: PAIN - MODERATE Last Admin: 06/21/19 07:58 Dose: 5 mg Pantoprazole Sodium (Protonix Tab*) 40 mg PO BID [facility] Last Admin: 06/21/19 07:57 Dose: 40 mg Polyethylene Glycol/Electrolytes (Miralax*) 17 gm PO DAILY [facility] Last Admin: 06/21/19 07:55 Dose: 17 gm Primidone (Mysoline Tab(*)) 50 mg PO BEDTIME [facility] Last Admin: 06/20/19 20:19 Dose: 50 mg Senna (Senokot 8.6 Mg Tab*) 2 tab PO DAILY [facility] Last Admin: 06/21/19 07:56 Dose: 2 tab Sertraline HCl (Zoloft*) 50 mg PO BEDTIME [facility] Last Admin: 06/20/19 20:19 Dose: 50 mg Throat Lozenges (Chloraseptic Bucky*) 1 bucky PO Q2H PRN PRN Reason: SORE THROAT Last Admin: 06/19/19 20:54 Dose: 1 bucky Topiramate (Topamax(*)) 50 mg PO QAM [facility] Last Admin: 06/21/19 07:57 Dose: 50 mg Topiramate (Topamax(*)) 100 mg PO BEDTIME [facility] Last Admin: 06/20/19 20:19 Dose: 100 mg Trazodone HCl (Desyrel Tab*) 50 mg PO BEDTIME [facility] Last Admin: 06/20/19 20:19 Dose: 50 mg Vital Signs - 8 hr 06/21/19 06/21/19 06/21/19 07:14 07:31 07:58 Temperature 98 F Pulse Rate 68 Respiratory 20 20 20 Rate Blood Pressure 154/63 (mmHg) O2 Sat by Pulse 95 95 Oximetry 06/21/19 06/21/19 10:14 11:16 Temperature 97.6 F Pulse Rate 66 Respiratory 18 16 Rate Blood Pressure 133/58 (mmHg) O2 Sat by Pulse 96 Oximetry Oxygen Devices in Use Now: None Appearance: well appearing elderly woman in NAD Eyes: No Scleral Icterus Ears/Nose/Mouth/Throat: Clear Oropharnyx, Mucous Membranes Moist Neck: NL Appearance and Movements; NL JVP, Trachea Midline Respiratory: Symmetrical Chest Expansion and Respiratory Effort, Clear to Auscultation Cardiovascular: NL Sounds; No Murmurs; No JVD, RRR Abdominal: NL Sounds; No Tenderness; No Distention, No Hepatosplenomegaly Extremities: No Edema, - - RLE with splint and DENISE wrap, wwp b/l without edema Result Diagrams: 06/19/19 05:18 06/16/19 15:50 Microbiology and Other Data: Microbiology 06/16/19 03:30 Urine Culture - Final Urine Strep Group B Normal Mary Assess/Plan/Problems-Billing Assessment: 83W with HTN, possible PD, essential tremor, vertigo presents s/p mechanical fall and is found to have elevated BP and R trimalleolar fracture. Now s/p ORIF 06/18. - Patient Problems (1) Trimalleolar fracture of right ankle Comment: -Ortho following. ORIF performed 06/18/19 -NWB RLE -continue splint, ice, elevation -continue pain control and bowel regimen. Enema today. -PT recommends MARIE, patient agreeable (2) Hypertension Current Visit: Yes Comment: PCP and she confirms that pt is on 7 anti- hypertensives due to continued elevated BP despite treatment. Cardiology records demonstrate Renal US without arterial stenosis -BP well controlled on clonidine patch only -unclear why so poorly controlled outpatient, possibly inaccurate home readings plus white coat syndrome (3) Hyperlipidemia Comment: -continue statin (4) Essential tremor Comment: -previously hx of parkinson's documented, though I believe this is an error as she is known to have essential tremor -continue primodone (5) Vertigo Comment: -continue meclizine prn (6) DVT prophylaxis Comment: -lovenox until 07/17 (7) Full code status Current Visit: Yes Status: Acute Code(s): Z78.9 - OTHER SPECIFIED HEALTH STATUS SNOMED Code(s): 513908935 Status and Disposition: Inpatient. Discharge when stable. MARIE placement pending
[2019-06-21] MEDS: Cholecalciferol TAB* 1000 UNITS PO SCH (14:05)
[2019-06-21] MEDS: Topiramate TAB(*) 100 MG PO SCH (20:14)
[2019-06-21] MEDS: Sertraline* 50 MG TAB PO SCH (20:14)
[2019-06-21] MEDS: traZODone TAB* 50 MG TAB PO SCH (20:14)
[2019-06-21] MEDS: Primidone TAB(*) 50 MG PO SCH (20:15)
[2019-06-22] MEDS: Aspirin 81 mg CHEW TAB* 81 MG TAB.CHEW PO SCH (08:21)
[2019-06-22] MEDS: Polyethylene Glycol 3350* 17 GM PACKET PO SCH (08:21)
[2019-06-22] MEDS: Topiramate TAB(*) 25 MG PO SCH (08:21)
[2019-06-22] MEDS: Pantoprazole TAB * 40 MG TAB PO SCH ×2 (08:22→20:29)
[2019-06-22] MEDS: Atorvastatin* 40 MG TAB PO SCH (08:22)
[2019-06-22] MEDS: Senna TAB 8.6 mg* TAB PO SCH (08:22)
[2019-06-22] MEDS: oxyCODONE TAB* 5 MG TAB PO PRN ×2 (08:23→17:59)
[2019-06-22] MEDS: Cholecalciferol TAB* 1000 UNITS PO SCH (08:23)
[2019-06-22] MEDS: Enoxaparin(*) 40 MG/0.4 ML SYR SUBCUT SCH (08:24)
--- NOTE | 2019-06-22 09:06 | PN ---
Subjective Date of Service: 06/22/19 Interval History: Pt had large BM yesterday after enema. No significant overnight events. Occasionally with severe ankle pain but responds significantly to oxycodone. Pt was on hydrocodone before admission, for shoulder pain, and likely has opioid tolerance. Discussed care with son and [id number] today. They are mostly concerned with why her BPs were so high at home, requiring 7 different medications. Discussed that changes in diet, activity, and stress levels can cause this. Has history of normal renal arteries per ultrasound. Family interested in renal referral on discharge. Objective Active Medications: Acetaminophen (Tylenol Tab*) 650 mg PO Q6H PRN PRN Reason: MILD PAIN or TEMP > 100.4 Aspirin (Aspirin 81 Mg Chew Tab*) 81 mg PO DAILY [facility] Last Admin: 06/22/19 08:21 Dose: 81 mg Atorvastatin Calcium (Lipitor*) 40 mg PO DAILY [facility] Last Admin: 06/22/19 08:22 Dose: 40 mg Cholecalciferol (Vitamin D Tab*) 2,000 units PO DAILY [facility] Last Admin: 06/22/19 08:23 Dose: 2,000 units Clonazepam (Klonopin Tab(*)) 0.25 mg PO Q8H PRN PRN Reason: Tremors Clonidine HCl (Wxwhtzda-Wki-2 0.3 Mg Patch*) 0.3 mg TRANSDERM Q7D [facility] Last Admin: 06/15/19 22:40 Dose: 0.3 mg Enoxaparin Sodium (Lovenox(*)) 40 mg SUBCUT DAILY [facility] Last Admin: 06/22/19 08:24 Dose: 40 mg Magnesium Hydroxide (Milk Of Magnvidya Liq*) 30 ml PO Q6H PRN PRN Reason: CONSTIPATION Last Admin: 06/21/19 13:04 Dose: 30 ml Meclizine HCl (Antivert Tab*) 25 mg PO TID PRN PRN Reason: DIZZINESS Last Admin: 06/15/19 22:13 Dose: 25 mg Morphine Sulfate (Morphine Inj (Syringe))*) 2 mg IV Q4H PRN PRN Reason: PAIN - SEVERE Last Admin: 06/20/19 00:16 Dose: 2 mg Nitroglycerin (Nitroglycerin Tab 0.4 Mg*) 0.4 mg SL Q5M PRN PRN Reason: ANGINA Ondansetron HCl (Zofran Inj*) 4 mg IV Q6H PRN PRN Reason: NAUSEA Oxycodone HCl (Roxycodone Tab*) 10 mg PO Q6H PRN PRN Reason: PAIN - MODERATE Last Admin: 06/22/19 08:23 Dose: 10 mg Oxycodone HCl (Roxycodone Tab*) 5 mg PO Q5H PRN PRN Reason: PAIN - MODERATE Last Admin: 06/21/19 07:58 Dose: 5 mg Pantoprazole Sodium (Protonix Tab*) 40 mg PO BID [facility] Last Admin: 06/22/19 08:22 Dose: 40 mg Polyethylene Glycol/Electrolytes (Miralax*) 17 gm PO DAILY [facility] Last Admin: 06/22/19 08:21 Dose: 17 gm Primidone (Mysoline Tab(*)) 50 mg PO BEDTIME [facility] Last Admin: 06/21/19 20:15 Dose: 50 mg Senna (Senokot 8.6 Mg Tab*) 2 tab PO DAILY [facility] Last Admin: 06/22/19 08:22 Dose: 2 tab Sertraline HCl (Zoloft*) 50 mg PO BEDTIME [facility] Last Admin: 06/21/19 20:14 Dose: 50 mg Throat Lozenges (Chloraseptic Bucky*) 1 bucky PO Q2H PRN PRN Reason: SORE THROAT Last Admin: 06/19/19 20:54 Dose: 1 bucky Topiramate (Topamax(*)) 50 mg PO QAM [facility] Last Admin: 06/22/19 08:21 Dose: 50 mg Topiramate (Topamax(*)) 100 mg PO BEDTIME [facility] Last Admin: 06/21/19 20:14 Dose: 100 mg Trazodone HCl (Desyrel Tab*) 50 mg PO BEDTIME [facility] Last Admin: 06/21/19 20:14 Dose: 50 mg Vital Signs - 8 hr 06/22/19 06/22/19 06/22/19 04:00 07:44 08:23 Temperature 97.5 F Pulse Rate 64 Respiratory 16 18 18 Rate Blood Pressure 148/67 (mmHg) O2 Sat by Pulse 95 Oximetry 06/22/19 08:26 Temperature 98.8 F Pulse Rate 72 Respiratory 20 Rate Blood Pressure 150/82 (mmHg) O2 Sat by Pulse 96 Oximetry Oxygen Devices in Use Now: None Appearance: well appearing elderly woman in nAD Eyes: No Scleral Icterus, PERRLA Ears/Nose/Mouth/Throat: Clear Oropharnyx, Mucous Membranes Moist Neck: NL Appearance and Movements; NL JVP, Trachea Midline Respiratory: Symmetrical Chest Expansion and Respiratory Effort, Clear to Auscultation Cardiovascular: NL Sounds; No Murmurs; No JVD, RRR Extremities: No Edema, - - RLE with splint/DENISE wrap up to knee, can wiggle toes , wwp proximally Skin: No Rash or Ulcers Result Diagrams: 06/19/19 05:18 06/16/19 15:50 Microbiology and Other Data: Microbiology 06/16/19 03:30 Urine Culture - Final Urine Strep Group B Normal Mary Assess/Plan/Problems-Billing Assessment: 83W with HTN, essential tremor, vertigo presents s/p mechanical fall and is found to have elevated BP and R trimalleolar fracture. Now s/p ORIF 06/18. - Patient Problems (1) Trimalleolar fracture of right ankle Comment: -Ortho following. ORIF performed 06/18/19 -NWB RLE -continue splint, ice, elevation -continue pain control and bowel regimen -PT recommends MARIE, patient agreeable (2) Hypertension Comment: PCP and she confirms that pt is on 7 anti-hypertensives due to continued elevated BP despite treatment. Cardiology records demonstrate Renal US without arterial stenosis -switching from clonodine patch only to lisinopril/amlodipine (patch fell off) -unclear why so poorly controlled outpatient, possibly inaccurate home readings plus white coat syndrome, or different diet/stress/activity level at home (3) Hyperlipidemia Comment: -continue statin (4) Essential tremor Comment: -previously hx of parkinson's documented, though I believe this is an error as she is known to have essential tremor -continue primodone (5) Vertigo Comment: -continue meclizine prn (6) DVT prophylaxis Comment: -lovenox until 07/17 (7) Full code status Current Visit: Yes Status: Acute Code(s): Z78.9 - OTHER SPECIFIED HEALTH STATUS SNOMED Code(s): 650648946 Status and Disposition: Inpatient. Discharge when stable. MARIE placement pending
[2019-06-22] MEDS ORDERED: oxyCODONE TAB* 5 MG TAB PO PRN (09:38)
[2019-06-22] MEDS: Lisinopril TAB* 10 MG PO SCH (10:10)
[2019-06-22] MEDS: amLODIPine TAB* 5 MG PO SCH (10:10)
--- NOTE | 2019-06-22 11:21 | PN ---
Progress Note - Progress Note Date of Service: 06/22/19 SOAP: Subjective: []Pt seen at bedside. Her family is at bedside and helps to translate. Her right ankle is comfortable, no complaint of pain. Denies CP, SOB, dizziness or nausea. Objective: []Gen: NAD, appears ewll RLE: Right ankle splint CDI able to f/e MTPs, sensation intact to light touch distally and capillary refill less than two seconds distally L calf supple and nontender Assessment: []S/P Right ankle ORIF of trimal fracture on 06/18 Plan: Lovenox DVT prophylaxis x 1 month post op NWB RLE Keep splint c/d/i Elevate and ice RLE F/U Dr. Mora 14 days post op Vital Signs Temp 97.4 F 06/22/19 11:12 Pulse 67 06/22/19 11:12 Resp 20 06/22/19 11:12 BP 169/68 06/22/19 11:12 Pulse Ox 96 06/22/19 11:12 Intake & Output 06/21/19 06/22/19 06/22/19 18:59 06:59 18:59 Intake Total 960 0 Balance 960 0 Intake: Oral 960 0 Other: Estimated Void Medium # Bowel Movements 1 Estimated Stool Amount Large # Voids 1 Laboratory Last Values WBC 8.0 10^3/uL (3.5-10.8) 06/19/19 05:18 RBC 3.49 10^6 /uL (3.70-4.87) L 06/19/19 05:18 Hgb 11.1 g/dL (12.0-16.0) L 06/19/19 05:18 Hct 32 % (35-47) L 06/19/19 05:18 MCV 92 fL (80-97) 06/19/19 05:18 MCH 32 pg (27-31) H 06/19/19 05:18 MCHC 35 g/dL (31-36) 06/19/19 05:18 RDW 14 % (10-15) 06/19/19 05:18 Plt Count 226 10^3/uL (150-450) 06/19/19 05:18 MPV 8.3 fL (7.4-10.4) 06/19/19 05:18 Neut % (Auto) 54.3 % 06/19/19 05:18 Lymph % (Auto) 25.7 % 06/19/19 05:18 [place] % (Auto) 17.0 % 06/19/19 05:18 Eos % (Auto) 2.6 % 06/19/19 05:18 Baso % (Auto) 0.4 % 06/19/19 05:18 Absolute Neuts (auto) 4.4 10^3/ul (1.5-7.7) 06/19/19 05:18 Absolute Lymphs (auto) 2.1 10^3/ul (1.0-4.8) 06/19/19 05:18 Absolute Monos (auto) 1.4 10^3/ul (0-0.8) H 06/19/19 05:18 Absolute Eos (auto) 0.2 10^3/ul (0-0.6) 06/19/19 05:18 Absolute Basos (auto) 0.0 10^3/ul (0-0.2) 06/19/19 05:18 Absolute Nucleated RBC 0.0 10^3/ul 06/19/19 05:18 Nucleated RBC % 0.0 06/19/19 05:18 INR (Anticoag Therapy) 1.02 (0.82-1.09) 06/16/19 15:50 APTT 38.6 seconds (26.0-38.0) H 06/18/19 05:39 Sodium 137 mmol/L (135-145) 06/16/19 04:42 Potassium 4.3 mmol/L (3.5-5.0) 06/16/19 04:42 Chloride 105 mmol/L (101-111) 06/16/19 04:42 Carbon Dioxide 27 mmol/L (22-32) 06/16/19 04:42 Anion Gap 5 mmol/L (2-11) 06/16/19 04:42 BUN 20 mg/dL (6-24) 06/16/19 15:50 Creatinine 0.71 mg/dL (0.51-0.95) 06/16/19 15:50 Est GFR ( Amer) 95.6 (>60) 06/16/19 15:50 Est GFR (Non-Af Amer) 79.0 (>60) 06/16/19 15:50 BUN/Creatinine Ratio 29.2 (8-20) H 06/16/19 04:42 Glucose 136 mg/dL (70-100) H 06/16/19 04:42 POC Glucose (mg/dL) 127 mg/dL (70-100) H 06/18/19 05:29 Hemoglobin A1c 5.9 % (4.0-5.6) H 06/16/19 04:42 Calcium 8.9 mg/dL (8.6-10.3) 06/16/19 04:42 Magnesium 1.9 mg/dL (1.9-2.7) 06/16/19 04:42 Total Bilirubin 0.40 mg/dL (0.2-1.0) 06/15/19 18:36 AST 26 U/L (13-39) 06/15/19 18:36 ALT 21 U/L (7-52) 06/15/19 18:36 Alkaline Phosphatase 94 U/L (34-104) 06/15/19 18:36 Troponin I 0.01 ng/mL (<0.04) 06/16/19 04:42 Total Protein 7.5 g/dL (6.4-8.9) 06/15/19 18:36 Albumin 4.2 g/dL (3.2-5.2) 06/15/19 18:36 Globulin 3.3 g/dL (2-4) 06/15/19 18:36 Albumin/Globulin Ratio 1.3 (1-3) 06/15/19 18:36 Triglycerides 121 mg/dL 06/16/19 04:42 Cholesterol 181 mg/dL 06/16/19 04:42 LDL Cholesterol 107 mg/dL 06/16/19 04:42 HDL Cholesterol 49.7 mg/dL 06/16/19 04:42 Urine Color Yellow 06/16/19 03:30 Urine Appearance Cloudy 06/16/19 03:30 Urine pH 6.0 (5-9) 06/16/19 03:30 Ur Specific [place] 1.013 (1.010-1.030) 06/16/19 03:30 Urine Protein Negative (Negative) 06/16/19 03:30 Urine Ketones Negative (Negative) 06/16/19 03:30 Urine Blood 2+ (Negative) A 06/16/19 03:30 Urine Nitrate Negative (Negative) 06/16/19 03:30 Urine Bilirubin Negative (Negative) 06/16/19 03:30 Urine Urobilinogen Negative (Negative) 06/16/19 03:30 Ur Leukocyte Esterase 1+ (Negative) A 06/16/19 03:30 Urine WBC (Auto) 3+(>20/hpf) (Absent) A 06/16/19 03:30 Urine RBC (Auto) 3+(>10/hpf) (Absent) A 06/16/19 03:30 Ur Squamous Epith Cells Present (Absent) A 06/16/19 03:30 Urine Bacteria Absent (Absent) 06/16/19 03:30 Hyaline Casts Present (Absent) A 06/16/19 03:30 Urine Glucose Negative (Negative) 06/16/19 03:30 Blood Type A Positive 06/15/19 18:36 Antibody Screen Negative 06/15/19 18:36
[2019-06-22] MEDS: Sertraline* 50 MG TAB PO SCH (20:29)
[2019-06-22] MEDS: traZODone TAB* 50 MG TAB PO SCH (20:29)
[2019-06-22] MEDS: Topiramate TAB(*) 100 MG PO SCH (20:29)
--- NOTE | 2019-06-23 07:26 | PN ---
Subjective Date of Service: 06/23/19 Interval History: No acute events overnight. Transitioned from clonidine patch to amlodipine/lisinopril yesterday with excellent response in BP. Pt reports mild ankle pain after receiving oxy prior to interview. Objective Active Medications: Acetaminophen (Tylenol Tab*) 650 mg PO Q6H PRN PRN Reason: MILD PAIN or TEMP > 100.4 Amlodipine Besylate (Norvasc Tab*) 5 mg PO DAILY [facility] Last Admin: 06/22/19 10:10 Dose: 5 mg Aspirin (Aspirin 81 Mg Chew Tab*) 81 mg PO DAILY [facility] Last Admin: 06/22/19 08:21 Dose: 81 mg Atorvastatin Calcium (Lipitor*) 40 mg PO DAILY [facility] Last Admin: 06/22/19 08:22 Dose: 40 mg Cholecalciferol (Vitamin D Tab*) 2,000 units PO DAILY [facility] Last Admin: 06/22/19 08:23 Dose: 2,000 units Clonazepam (Klonopin Tab(*)) 0.25 mg PO Q8H PRN PRN Reason: Tremors Enoxaparin Sodium (Lovenox(*)) 40 mg SUBCUT DAILY [facility] Last Admin: 06/22/19 08:24 Dose: 40 mg Lisinopril (Prinivil Tab*) 10 mg PO DAILY [facility] Last Admin: 06/22/19 10:10 Dose: 10 mg Magnesium Hydroxide (Milk Of Magnvidya Liq*) 30 ml PO Q6H PRN PRN Reason: CONSTIPATION Last Admin: 06/21/19 13:04 Dose: 30 ml Meclizine HCl (Antivert Tab*) 25 mg PO TID PRN PRN Reason: DIZZINESS Last Admin: 06/15/19 22:13 Dose: 25 mg Nitroglycerin (Nitroglycerin Tab 0.4 Mg*) 0.4 mg SL Q5M PRN PRN Reason: ANGINA Ondansetron HCl (Zofran Inj*) 4 mg IV Q6H PRN PRN Reason: NAUSEA Oxycodone HCl (Roxycodone Tab*) 10 mg PO Q6H PRN PRN Reason: PAIN - SEVERE Last Admin: 06/22/19 17:59 Dose: 10 mg Oxycodone HCl (Roxycodone Tab*) 5 mg PO Q6H PRN PRN Reason: PAIN - MODERATE Pantoprazole Sodium (Protonix Tab*) 40 mg PO BID [facility] Last Admin: 06/22/19 20:29 Dose: 40 mg Polyethylene Glycol/Electrolytes (Miralax*) 17 gm PO DAILY [facility] Last Admin: 06/22/19 08:21 Dose: 17 gm Senna (Senokot 8.6 Mg Tab*) 2 tab PO DAILY [facility] Last Admin: 06/22/19 08:22 Dose: 2 tab Sertraline HCl (Zoloft*) 50 mg PO BEDTIME [facility] Last Admin: 06/22/19 20:29 Dose: 50 mg Throat Lozenges (Chloraseptic Bucky*) 1 bucky PO Q2H PRN PRN Reason: SORE THROAT Last Admin: 06/19/19 20:54 Dose: 1 bucky Topiramate (Topamax(*)) 50 mg PO QAM [facility] Last Admin: 06/22/19 08:21 Dose: 50 mg Topiramate (Topamax(*)) 100 mg PO BEDTIME [facility] Last Admin: 06/22/19 20:29 Dose: 100 mg Trazodone HCl (Desyrel Tab*) 50 mg PO BEDTIME [facility] Last Admin: 06/22/19 20:29 Dose: 50 mg Vital Signs - 8 hr 06/23/19 06/23/19 06/23/19 00:17 00:18 03:08 Temperature 98.1 F 98.1 F Pulse Rate 62 64 Respiratory 20 20 Rate Blood Pressure 132/52 141/62 (mmHg) O2 Sat by Pulse 96 96 96 Oximetry 06/23/19 07:16 Temperature 98.1 F Pulse Rate 63 Respiratory 20 Rate Blood Pressure 156/71 (mmHg) O2 Sat by Pulse 96 Oximetry Oxygen Devices in Use Now: None Appearance: well appearing elderly woman in NAD Eyes: No Scleral Icterus Ears/Nose/Mouth/Throat: Clear Oropharnyx, Mucous Membranes Moist Respiratory: Symmetrical Chest Expansion and Respiratory Effort, Clear to Auscultation Cardiovascular: NL Sounds; No Murmurs; No JVD, RRR Abdominal: NL Sounds; No Tenderness; No Distention, No Hepatosplenomegaly Extremities: No Edema, - - splint/sonia wrap over distal RLE Skin: No Rash or Ulcers Result Diagrams: 06/19/19 05:18 06/16/19 15:50 Microbiology and Other Data: Microbiology 06/16/19 03:30 Urine Culture - Final Urine Strep Group B Normal Mary Assess/Plan/Problems-Billing Assessment: 83W with HTN, essential tremor, vertigo presents s/p mechanical fall and is found to have elevated BP and R trimalleolar fracture. Now s/p ORIF 06/18. - Patient Problems (1) Trimalleolar fracture of right ankle Comment: -Ortho following. ORIF performed 06/18/19 -NWB RLE -continue splint, ice, elevation -continue pain control and bowel regimen -PT recommends MARIE, patient agreeable (2) Hypertension Comment: PCP and she confirms that pt is on 7 anti-hypertensives due to continued elevated BP despite treatment. Cardiology records demonstrate Renal US without arterial stenosis -cont lisinopril/amlodipine -unclear why so poorly controlled outpatient, possibly inaccurate home readings plus white coat syndrome, or different diet/stress/activity level at home (3) Hyperlipidemia Comment: -continue statin (4) Essential tremor Comment: -previously hx of parkinson's documented, though I believe this is an error as she is known to have essential tremor -continue primodone (5) Vertigo Comment: -continue meclizine prn (6) DVT prophylaxis Comment: -lovenox until 07/17 (7) Full code status Current Visit: Yes Status: Acute Code(s): Z78.9 - OTHER SPECIFIED HEALTH STATUS SNOMED Code(s): 451335265 Status and Disposition: Inpatient. Discharge when stable. MARIE placement pending
[2019-06-23] MEDS: Cholecalciferol TAB* 1000 UNITS PO SCH (07:46)
[2019-06-23] MEDS: Polyethylene Glycol 3350* 17 GM PACKET PO SCH (07:46)
[2019-06-23] MEDS: Aspirin 81 mg CHEW TAB* 81 MG TAB.CHEW PO SCH (07:47)
[2019-06-23] MEDS: Pantoprazole TAB * 40 MG TAB PO SCH (07:47)
[2019-06-23] MEDS: Senna TAB 8.6 mg* TAB PO SCH (07:47)
[2019-06-23] MEDS: amLODIPine TAB* 5 MG PO SCH (07:47)
[2019-06-23] MEDS: Lisinopril TAB* 10 MG PO SCH (07:48)
[2019-06-23] MEDS: Topiramate TAB(*) 25 MG PO SCH (07:48)
[2019-06-23] MEDS: oxyCODONE TAB* 5 MG TAB PO PRN (07:48)
[2019-06-23] MEDS: Atorvastatin* 40 MG TAB PO SCH (07:48)
[2019-06-23] MEDS: Enoxaparin(*) 40 MG/0.4 ML SYR SUBCUT SCH (07:49)
--- NOTE | 2019-06-23 12:02 | DS ---
CC: Dr. Belem Reese, Dr. Gabriel Mora DISCHARGE SUMMARY: DATE OF ADMISSION: 06/15/19 DATE OF DISCHARGE: 06/23/19 PRIMARY CARE PHYSICIAN: Dr. Belem Reese. PRIMARY DIAGNOSES: 1. Right trimalleolar ankle fracture and dislocation. 2. Severe hypertension. SECONDARY DIAGNOSES: 1. Essential tremor. 2. Depression. CONSULTS: Dr. Gabriel Mora of Orthopedic Surgery. PROCEDURES: Right trimalleolar ankle fracture, open reduction internal fixation of medial and lateral malleoli on 06/18/19. DISCHARGE MEDICATIONS: 1. Lovenox 40 mg subcutaneously until 07/17/19. 2. Amlodipine 5 mg nightly. 3. Lisinopril 10 mg nightly. 4. Oxycodone 5 mg every 6 hours as needed for moderate pain. 5. Oxycodone 10 mg every 6 hours as needed for severe pain. 6. Aspirin 81 mg daily. 7. Atorvastatin 40 mg daily. 8. Sertraline 50 mg daily. 9. Trazodone 50 mg nightly. 10. Topiramate 50 mg in the morning, 100 mg at night. 11. Primidone 50 mg at night. 12. Clonazepam 0.25 mg every 8 hours as needed for tremor. 13. Senna 8.6 mg 2 tablets a day as needed for constipation. 14. Milk of magnesia 30 mL every 6 hours as needed for constipation. 15. Meclizine 25 mg 3 times a day as needed for dizziness. 16. Nitroglycerin 0.4 mg every 5 minutes as needed for chest pain. 17. Omeprazole 40 mg twice a day. 18. Vitamin D3/calcium supplement twice a day. HISTORY OF PRESENT ILLNESS: Ms. Pate is an 83-year-old woman with a past medical history of refractory hypertension, essential tremor, vertigo, chronic right shoulder pain, and depression, who is presenting after a fall with significant ankle pain. The patient was in her normal state of health which includes severely high blood pressure, notably 215/105 on morning of presentation. So, she took her prescribed blood pressure medications. When she walked outside, she was in the grass and slipped and fell. She did not loose consciousness or hit her head. She reports only feeling pain in the ankle after her fall and also an odd feeling in her chest like "her heart has stopped working". This was associated with the shortness of breath that resolved quickly. She denied significant chest pain. Prior to this fall, the patient had excellent functional status, was able to walk up flights of stairs without dyspnea and could also walk long distances on flat ground. The patient has had no recent changes to her medications. She takes hydrocodone chronically for shoulder pain related to what might be a rotator cuff tear. She underwent a stress test in 2017 which was normal. The patient denies fevers, chills, abdominal pain, nausea, vomiting. 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 She has had no recent missed doses of her medications. HOSPITAL COURSE: In the emergency room, the patient's blood pressure was 222/94 and she was noted to have obvious ankle deformity and imaging was significant for dislocated ankle with trimalleolar fracture on the right. She was seen in consultation with Orthopedics who reduced the fracture in the emergency room and recommended admission for surgery 3 days later. In the meantime, the patient was admitted to the medical service for blood pressure optimization and pain management. The patient was initially continued on her home blood pressure medications, of which there were 7. However, by next morning, the patient was noted to have blood pressure of systolics in the 90s, so her blood pressure medications were slowly titrated down. Eventually, she remained only on amlodipine 5 mg daily and lisinopril 10 mg daily. She did seem to experience brief withdrawal syndrome from clonidine including some anxiety, visual changes, and mild increase in her blood pressure which resolved within 1 day. The patient underwent ORIF of right ankle with orthopedic team on which she tolerated well. Afterwards, the patient was seen and evaluated by Physical Therapy who recommended placement to short-term rehab. On the day of discharge, a complete 10-point review of systems was performed and the patient reported mild ankle pain after receiving oxycodone 10 mg. She denied visual changes, shortness of breath, chest pain, or lightheadedness upon standing. Orthopedic surgery recommended that she remain nonweightbearing in her right lower extremity with frequent elevation on that leg and to follow up with Ortho 2 weeks after the date of her operation with continued Lovenox subcu injections daily for DVT prophylaxis for 1 month after operation. PERTINENT STUDIES AND LABS: CBC: Notable for anemia to 11.1 with MCV of 92 BMP and LFTs remarkable. Hemoglobin A1c 5.9%. Troponin negative x2. Right ankle x-ray with posterior dislocation of the palate relative to the tibia with a transfer, slightly comminuted intraarticular fracture of the medial malleolus with distraction of the distal fracture fragment. There is an oblique intraarticular fracture of the lateral malleolus. The distal fragment had displaced laterally one-half shaft diameter and posterior. There also appears to be a fracture of the posterior malleolus. There is diffuse widening of the ankle mortise. Repeat ankle x-ray after reduction with near anatomic alignment status post closed reduction of trimalleolar fracture. Right foot x-ray 2 views with trimalleolar fracture, dislocation of the ankle, probable subacute to chronic fractures of the 2nd and 3rd metatarsal is not well - defined in this limited study. Chest x-ray without acute cardiopulmonary process. DISCHARGE PLAN: The patient is to be discharged to short-term rehab. Per Orthopedic Surgery recommendation, she is to remain on Lovenox for DVT prophylaxis for 1 month postop. Her last day of Lovenox should be on 07/17/19. She should follow up with Dr. Mora 14 days postop, which is on 07/02/19. She should remain nonweightbearing on the right lower extremity. For the patient's history of resistant hypertension, she should continue to have her blood pressures monitored in rehab as she has had significant reductions in the amount of blood pressure medicines that she required throughout hospitalization. She should continue to follow up with her primary care physician for ongoing management of her hypertension and other chronic medical problems. For blood pressure, she should have a healthy diet, low in processed foods and high in potassium. While the patient is on narcotics for her recent fracture, she should remain on a bowel regimen to ensure that she is having 1 bowel movement per day. She should resume activity as tolerated with nonweightbearing on the right lower extremity with further exercise per rehab. DISPOSITION: To [facility] CONDITION: Improved. TIME SPENT: Approximately 60 minutes was spent on the discharge of the patient , more than half of which was spent with care coordination or at bedside for interview and exam. [id number]/[facility] #: [id number] MIKIE
--- NOTE | 2019-06-23 13:39 | PN ---
Progress Note - Progress Note Date of Service: 06/23/19 SOAP: Subjective: []Pt seen and examined at bedside. She denies CP, SOB. R ankle pain well controlled, improved from yesterday. Her family is present for translation. Objective: []Gen: NAD, appears ewll RLE: Right ankle splint CDI able to f/e MTPs, sensation intact to light touch distally and capillary refill less than two seconds distally L calf supple and nontender Assessment: []S/P Right ankle ORIF of trimal fracture on 06/18 Plan: Lovenox DVT prophylaxis x 1 month post op NWB RLE Keep splint c/d/i Elevate and ice RLE F/U Dr. Mora 14 days post op Vital Signs Temp 98.1 F 06/23/19 07:16 Pulse 63 06/23/19 07:16 Resp 18 06/23/19 09:48 BP 156/71 06/23/19 07:16 Pulse Ox 96 06/23/19 07:16 Intake & Output 06/22/19 06/23/19 06/23/19 18:59 06:59 18:59 Intake Total 0 0 Output Total 0 Balance 0 0 Intake: Oral 0 0 Output: Urine 0 Other: Estimated Void Large Large # Voids 2 Laboratory Last Values WBC 8.0 10^3/uL (3.5-10.8) 06/19/19 05:18 RBC 3.49 10^6 /uL (3.70-4.87) L 06/19/19 05:18 Hgb 11.1 g/dL (12.0-16.0) L 06/19/19 05:18 Hct 32 % (35-47) L 06/19/19 05:18 MCV 92 fL (80-97) 06/19/19 05:18 MCH 32 pg (27-31) H 06/19/19 05:18 MCHC 35 g/dL (31-36) 06/19/19 05:18 RDW 14 % (10-15) 06/19/19 05:18 Plt Count 226 10^3/uL (150-450) 06/19/19 05:18 MPV 8.3 fL (7.4-10.4) 06/19/19 05:18 Neut % (Auto) 54.3 % 06/19/19 05:18 Lymph % (Auto) 25.7 % 06/19/19 05:18 [place] % (Auto) 17.0 % 06/19/19 05:18 Eos % (Auto) 2.6 % 06/19/19 05:18 Baso % (Auto) 0.4 % 06/19/19 05:18 Absolute Neuts (auto) 4.4 10^3/ul (1.5-7.7) 06/19/19 05:18 Absolute Lymphs (auto) 2.1 10^3/ul (1.0-4.8) 06/19/19 05:18 Absolute Monos (auto) 1.4 10^3/ul (0-0.8) H 06/19/19 05:18 Absolute Eos (auto) 0.2 10^3/ul (0-0.6) 06/19/19 05:18 Absolute Basos (auto) 0.0 10^3/ul (0-0.2) 06/19/19 05:18 Absolute Nucleated RBC 0.0 10^3/ul 06/19/19 05:18 Nucleated RBC % 0.0 06/19/19 05:18 INR (Anticoag Therapy) 1.02 (0.82-1.09) 06/16/19 15:50 APTT 38.6 seconds (26.0-38.0) H 06/18/19 05:39 Sodium 137 mmol/L (135-145) 06/16/19 04:42 Potassium 4.3 mmol/L (3.5-5.0) 06/16/19 04:42 Chloride 105 mmol/L (101-111) 06/16/19 04:42 Carbon Dioxide 27 mmol/L (22-32) 06/16/19 04:42 Anion Gap 5 mmol/L (2-11) 06/16/19 04:42 BUN 20 mg/dL (6-24) 06/16/19 15:50 Creatinine 0.71 mg/dL (0.51-0.95) 06/16/19 15:50 Est GFR ( Amer) 95.6 (>60) 06/16/19 15:50 Est GFR (Non-Af Amer) 79.0 (>60) 06/16/19 15:50 BUN/Creatinine Ratio 29.2 (8-20) H 06/16/19 04:42 Glucose 136 mg/dL (70-100) H 06/16/19 04:42 POC Glucose (mg/dL) 127 mg/dL (70-100) H 06/18/19 05:29 Hemoglobin A1c 5.9 % (4.0-5.6) H 06/16/19 04:42 Calcium 8.9 mg/dL (8.6-10.3) 06/16/19 04:42 Magnesium 1.9 mg/dL (1.9-2.7) 06/16/19 04:42 Total Bilirubin 0.40 mg/dL (0.2-1.0) 06/15/19 18:36 AST 26 U/L (13-39) 06/15/19 18:36 ALT 21 U/L (7-52) 06/15/19 18:36 Alkaline Phosphatase 94 U/L (34-104) 06/15/19 18:36 Troponin I 0.01 ng/mL (<0.04) 06/16/19 04:42 Total Protein 7.5 g/dL (6.4-8.9) 06/15/19 18:36 Albumin 4.2 g/dL (3.2-5.2) 06/15/19 18:36 Globulin 3.3 g/dL (2-4) 06/15/19 18:36 Albumin/Globulin Ratio 1.3 (1-3) 06/15/19 18:36 Triglycerides 121 mg/dL 06/16/19 04:42 Cholesterol 181 mg/dL 06/16/19 04:42 LDL Cholesterol 107 mg/dL 06/16/19 04:42 HDL Cholesterol 49.7 mg/dL 06/16/19 04:42 Urine Color Yellow 06/16/19 03:30 Urine Appearance Cloudy 06/16/19 03:30 Urine pH 6.0 (5-9) 06/16/19 03:30 Ur Specific [place] 1.013 (1.010-1.030) 06/16/19 03:30 Urine Protein Negative (Negative) 06/16/19 03:30 Urine Ketones Negative (Negative) 06/16/19 03:30 Urine Blood 2+ (Negative) A 06/16/19 03:30 Urine Nitrate Negative (Negative) 06/16/19 03:30 Urine Bilirubin Negative (Negative) 06/16/19 03:30 Urine Urobilinogen Negative (Negative) 06/16/19 03:30 Ur Leukocyte Esterase 1+ (Negative) A 06/16/19 03:30 Urine WBC (Auto) 3+(>20/hpf) (Absent) A 06/16/19 03:30 Urine RBC (Auto) 3+(>10/hpf) (Absent) A 06/16/19 03:30 Ur Squamous Epith Cells Present (Absent) A 06/16/19 03:30 Urine Bacteria Absent (Absent) 06/16/19 03:30 Hyaline Casts Present (Absent) A 06/16/19 03:30 Urine Glucose Negative (Negative) 06/16/19 03:30 Blood Type A Positive 06/15/19 18:36 Antibody Screen Negative 06/15/19 18:36
[2019-06-23 14:01] VITALS: BP 100/55
== END 2019-06-23 15:13 | DRG 494 ==
LOC: ED 16:48 → OR 18:17 → MEDTELE 19:23
PROVIDERS: ADMIT Internal Medicine; ATTEND Internal Medicine
PROC: 0QSG04Z Reposition Right Tibia with Internal Fixation Device, Open Approach (ICD-10-PCS; 2019-06-18)
PROC: 0QSJ04Z Reposition Right Fibula with Internal Fixation Device, Open Approach (ICD-10-PCS; principal; 2019-06-18 11:15)
DX: S82.851A Displaced trimalleolar fracture of right lower leg, initial encounter for closed fracture (principal); I10 Essential (primary) hypertension; E78.5 Hyperlipidemia, unspecified; E78.00 Pure hypercholesterolemia, unspecified; G20 Parkinson's disease; R42 Dizziness and giddiness; E66.9 Obesity, unspecified; F32.9 Major depressive disorder, single episode, unspecified; W01.0XXA Fall on same level from slipping, tripping and stumbling without subsequent striking against object, initial encounter; F41.9 Anxiety disorder, unspecified; G25.0 Essential tremor; Z79.899 Other long term (current) drug therapy; Z79.82 Long term (current) use of aspirin; Z68.32 Body mass index [BMI] 32.0-32.9, adult; Z82.3 Family history of stroke; Y92.008 Other place in unspecified non-institutional (private) residence as the place of occurrence of the external cause
CPT/HCPCS: 36415; 71045; 76000; 80048; 80053; 80061; 81003; 81015; 82565; 83036; 83735; 84484; 84520; 85025; 85610; 85730; 86850; 86900; 86901; 87077; 87086; 93005; 93306; 96374; 99284; A9270-GY; C1713; G8978-GP-CM; G8979-GP-CK; J0690; J1644; J1650; J2270; J2704; J3010; J3490

== ENCOUNTER 2023-03-12 10:06 | Inpatient (IN) ==
[~2023-03-12 10:06] MED LIST: NS 0.9% IVPB SCH; [UNRECOGNIZED DRUG - OTHER] IVPB SCH
[2023-03-12] MEDS ORDERED: NF: Metronidazole (TOPICAL)(NF) 45 GM TUBE TOPICAL PRN (13:05)
[2023-03-12] MEDS ORDERED: Vancomycin 750 MG in NS 0.9% 250 ml 250 ML IVPB SCH (14:00)
[2023-03-12 14:48] LABS: ABS Eosinophils 0.1 10^3/uL (0.0-0.5); ABS Lymphocytes 1.7 10^3/uL (1.0-4.8); ABS Monocytes 1.1 10^3/uL (0.0-0.9); ABS Neutrophils 4.8 10^3/uL (1.5-7.6); ABS Nucleated RBC 0.01 10^3/ul; Eosinophil % 1.3 %; Hematocrit 36.6 % (35-45); Hemoglobin 12.3 g/dL (11.5-14.3); Lymphocyte % 21.8 %; Mean Corpuscular Hemoglobin 32.5 pg (27-33); Mean Corpuscular Hgb Conc 33.5 g/dL (31-36); Mean Platelet Volume 7.3 fL (7.5-11.2); Nucleated Red Blood Cells % 0.1 /100 WBC (0.0-0.4); Platelet Count 191 10^3/uL (150-450); Red Blood Count 3.78 10^6/uL (3.63-4.92); Red Cell Distribution Width 14.3 % (12-17); White Blood Count 7.7 10^3/uL (3.8-11.8)
[2023-03-12 15:06] LABS: Albumin 3.9 g/dL (3.2-5.2); Albumin/Globulin Ratio 1.5 (1-3); Calcium 8.7 mg/dL (8.6-10.3); Creatinine, Serum 0.61 mg/dL (0.51-0.95); Globulin 2.6 g/dL (2-4); Potassium 3.5 mmol/L (3.5-5.0); Total Bilirubin 0.9 mg/dL (0.2-1.0); Total Protein 6.5 g/dL (6.4-8.9); eGFR CKD-EPI 87.6 (>60)
[2023-03-12 15:31] LABS: TSH Ultra Thyroid Stim Horm 0.48 mcIU/mL (0.34-5.60)
[2023-03-12] MEDS ORDERED: Vancomycin per Pharmacy 1 EA NOTE FOLLOW UP PRN (15:58)
[2023-03-12] MEDS ORDERED: Vancomycin 1,000 MG - ED ONCE IVPB ONE (16:00)
[2023-03-12] MEDS: NS 0.9% 1000 ml BAG 1,000 ML IV SCH (16:07)
[2023-03-12 17:01] LABS: C Reactive Protein 52.95 mg/L (<8.01)
[2023-03-12 17:55] LABS: Erythrocyte Sed Rate 16 mm/Hr (0-29)
[2023-03-12] MEDS: Carbidopa/Levodop 25/100 MG TAB PO SCH (21:02)
[2023-03-13] MEDS: Vancomycin 750 MG in NS 0.9% 250 ml 250 ML IVPB SCH ×2 (05:42→17:35)
[2023-03-13 06:18] LABS: ABS Eosinophils 0.1 10^3/uL (0.0-0.5); ABS Lymphocytes 1.6 10^3/uL (1.0-4.8); ABS Monocytes 0.9 10^3/uL (0.0-0.9); ABS Neutrophils 2.5 10^3/uL (1.5-7.6); Eosinophil % 1.9 %; Hematocrit 33.9 % (35-45); Hemoglobin 11.5 g/dL (11.5-14.3); Mean Corpuscular Hgb Conc 34.1 g/dL (31-36); Mean Corpuscular Volume 96.7 fL (80-97); Mean Platelet Volume 7.8 fL (7.5-11.2); Nucleated Red Blood Cells % 0.1 /100 WBC (0.0-0.4); Platelet Count 184 10^3/uL (150-450); Red Cell Distribution Width 14.3 % (12-17); White Blood Count 5.2 10^3/uL (3.8-11.8)
[2023-03-13 06:36] LABS: Albumin 3.4 g/dL (3.2-5.2); Albumin/Globulin Ratio 1.4 (1-3); Calcium 8.7 mg/dL (8.6-10.3); Creatinine, Serum 0.57 mg/dL (0.51-0.95); Globulin 2.5 g/dL (2-4); Potassium 4.1 mmol/L (3.5-5.0); Total Bilirubin 0.6 mg/dL (0.2-1.0); Total Protein 5.9 g/dL (6.4-8.9)
[2023-03-13] MEDS: Ondansetron 4 mg VIAL 2 MG/ML 2 ml VIAL IV PRN ×2 (11:53→17:36)
[2023-03-13] MEDS: cefTRIAXone 1 gm/50 mL D5W 1 GM/50 ML BAG IV SCH (13:24)
[2023-03-13] MEDS: Scopolamine 1 mg/72hr PATCH TRANSDERM SCH (15:19)
[2023-03-13 15:31] LABS: Magnesium 1.9 mg/dL (1.9-2.7)
[2023-03-13] MEDS: NS 0.9% 1000 ml BAG 1,000 ML IV SCH (17:35)
[2023-03-13] MEDS: Carbidopa/Levodop 25/100 MG TAB PO SCH (20:00)
[2023-03-14] MEDS ORDERED: Vancomycin Trough Check NOTE FOLLOW UP ONE (05:30)
[2023-03-14 06:46] LABS: Vancomycin Trough 6.9 mcg/mL
[2023-03-14] MEDS: Vancomycin 750 MG in NS 0.9% 250 ml 250 ML IVPB SCH (07:43)
[2023-03-14] MEDS: Ondansetron 4 mg VIAL 2 MG/ML 2 ml VIAL IV PRN (08:05)
[2023-03-14 08:51] LABS: C Reactive Protein 41.25 mg/L (<8.01)
[2023-03-14 11:45] LABS: ABS Eosinophils 0.3 10^3/uL (0.0-0.5); ABS Lymphocytes 1.5 10^3/uL (1.0-4.8); ABS Monocytes 0.8 10^3/uL (0.0-0.9); ABS Neutrophils 3.5 10^3/uL (1.5-7.6); Eosinophil % 4.2 %; Hematocrit 36.4 % (35-45); Hemoglobin 12.2 g/dL (11.5-14.3); Lymphocyte % 24.3 %; Mean Corpuscular Hemoglobin 32.3 pg (27-33); Mean Corpuscular Hgb Conc 33.6 g/dL (31-36); Mean Corpuscular Volume 96.1 fL (80-97); Mean Platelet Volume 7.8 fL (7.5-11.2); Platelet Count 223 10^3/uL (150-450); Red Blood Count 3.79 10^6/uL (3.63-4.92); Red Cell Distribution Width 14.2 % (12-17); White Blood Count 6.1 10^3/uL (3.8-11.8)
[2023-03-14 12:02] LABS: Albumin 3.8 g/dL (3.2-5.2); Albumin/Globulin Ratio 1.4 (1-3); Calcium 9.2 mg/dL (8.6-10.3); Creatinine, Serum 0.53 mg/dL (0.51-0.95); Globulin 2.8 g/dL (2-4); Potassium 4.1 mmol/L (3.5-5.0); Total Bilirubin 0.5 mg/dL (0.2-1.0); Total Protein 6.6 g/dL (6.4-8.9); eGFR CKD-EPI 90.6 (>60)
[2023-03-14] MEDS: cefTRIAXone 1 gm/50 mL D5W 1 GM/50 ML BAG IV SCH (12:43)
[2023-03-14] MEDS ORDERED: Furosemide 40 mg/4 ml IV VIAL IV SLOW PU ONE (13:22)
[2023-03-14 15:20] LABS: Urine Appearance Cloudy; Urine Bilirubin Negative (Negative); Urine Blood 3+ (Negative); Urine Color Yellow; Urine Glucose Negative (Negative); Urine Ketones Negative (Negative); Urine Nitrite Negative (Negative); Urine Protein Negative (Negative); Urine Specific Gravity 1.014 (1.002-1.030); Urine Urobilinogen Negative (Negative)
[2023-03-14 15:41] LABS: Urine Bacteria Absent (Absent); Urine Red Blood Cell 3+(>10/hpf) (Absent); Urine Squamous Epithelial Cell Present (Absent); Urine White Blood Cell 2+(11-20/hpf) (Absent)
[2023-03-14] MEDS: Carbidopa/Levodop 25/100 MG TAB PO SCH (20:44)
[2023-03-14] MEDS: ceFAZolin 1 GM ADVAN 1 GM in NS 0.9% 50 ML 50 ML IVPB SCH (21:16)
[2023-03-15] MEDS: ceFAZolin 1 GM ADVAN 1 GM in NS 0.9% 50 ML 50 ML IVPB SCH ×3 (04:34→20:34)
[2023-03-15 05:13] LABS: ABS Eosinophils 0.2 10^3/uL (0.0-0.5); ABS Lymphocytes 1.6 10^3/uL (1.0-4.8); ABS Monocytes 0.9 10^3/uL (0.0-0.9); ABS Neutrophils 2.7 10^3/uL (1.5-7.6); ABS Nucleated RBC 0.01 10^3/ul; Eosinophil % 4.1 %; Hemoglobin 11.2 g/dL (11.5-14.3); Lymphocyte % 29.5 %; Mean Corpuscular Hemoglobin 32.4 pg (27-33); Mean Corpuscular Hgb Conc 33.9 g/dL (31-36); Mean Corpuscular Volume 95.6 fL (80-97); Mean Platelet Volume 7.6 fL (7.5-11.2); Nucleated Red Blood Cells % 0.1 /100 WBC (0.0-0.4); Platelet Count 213 10^3/uL (150-450); Red Blood Count 3.45 10^6/uL (3.63-4.92); White Blood Count 5.4 10^3/uL (3.8-11.8)
[2023-03-15 05:29] LABS: Albumin 3.4 g/dL (3.2-5.2); Albumin/Globulin Ratio 1.3 (1-3); Calcium 8.7 mg/dL (8.6-10.3); Creatinine, Serum 0.65 mg/dL (0.51-0.95); Globulin 2.6 g/dL (2-4); Potassium 3.9 mmol/L (3.5-5.0); Total Bilirubin 0.4 mg/dL (0.2-1.0); eGFR CKD-EPI 86.2 (>60)
[2023-03-15] MEDS ORDERED: NS 0.9% 500 ml BAG 500 ML IV ONE (10:52)
[2023-03-15] MEDS ORDERED: Iohexol 300 (CONTRAST) 10 ML SDV IV ONE (11:30)
[2023-03-15] MEDS ORDERED: Magnesium Hydroxide LIQ 30 ML UDC PO PRN (12:24)
[2023-03-15] MEDS ORDERED: NS 0.9% 500 ml BAG 500 ML IV SCH (14:00)
[2023-03-15] MEDS: Polyethylene Glycol 3350 17 GM PACKET PO SCH (15:19)
[2023-03-15] MEDS: Scopolamine 1 mg/72hr PATCH TRANSDERM SCH (16:02)
[2023-03-15 18:32] LABS: Magnesium 1.8 mg/dL (1.9-2.7)
[2023-03-15] MEDS ORDERED: Heparin 5000 UNITS/ML 1 mL VIAL IV SCH (19:00)
[2023-03-15] MEDS: Senna TAB 8.6 mg TAB PO PRN (20:28)
[2023-03-15] MEDS: Carbidopa/Levodop 25/100 MG TAB PO SCH (20:28)
[2023-03-15 20:49] LABS: ABS Eosinophils 0.2 10^3/uL (0.0-0.5); ABS Lymphocytes 1.7 10^3/uL (1.0-4.8); ABS Monocytes 0.9 10^3/uL (0.0-0.9); ABS Neutrophils 3.1 10^3/uL (1.5-7.6); Hematocrit 34.7 % (35-45); Hemoglobin 11.7 g/dL (11.5-14.3); Mean Corpuscular Hemoglobin 32.5 pg (27-33); Mean Corpuscular Hgb Conc 33.8 g/dL (31-36); Mean Corpuscular Volume 96.4 fL (80-97); Mean Platelet Volume 7.9 fL (7.5-11.2); Nucleated Red Blood Cells % 0.1 /100 WBC (0.0-0.4); Platelet Count 251 10^3/uL (150-450); White Blood Count 5.9 10^3/uL (3.8-11.8)
[2023-03-15 21:04] LABS: Creatinine, Serum 0.62 mg/dL (0.51-0.95); eGFR CKD-EPI 87.2 (>60)
[2023-03-15] MEDS: Heparin DRIP 25,000 UNITS BAG 25,000 UNITS/500 ML BAG IV SCH (22:24)
[2023-03-16] MEDS: ceFAZolin 1 GM ADVAN 1 GM in NS 0.9% 50 ML 50 ML IVPB SCH ×3 (04:33→20:00)
[2023-03-16 04:56] LABS: ABS Eosinophils 0.2 10^3/uL (0.0-0.5); ABS Monocytes 0.9 10^3/uL (0.0-0.9); ABS Neutrophils 2.8 10^3/uL (1.5-7.6); Eosinophil % 3.8 %; Hematocrit 31.4 % (35-45); Hemoglobin 10.8 g/dL (11.5-14.3); Lymphocyte % 33.2 %; Mean Corpuscular Hemoglobin 32.9 pg (27-33); Mean Corpuscular Hgb Conc 34.4 g/dL (31-36); Mean Corpuscular Volume 95.8 fL (80-97); Mean Platelet Volume 7.8 fL (7.5-11.2); Platelet Count 216 10^3/uL (150-450); Red Blood Count 3.28 10^6/uL (3.63-4.92); Red Cell Distribution Width 14.1 % (12-17); White Blood Count 5.9 10^3/uL (3.8-11.8)
[2023-03-16 05:13] LABS: Albumin 3.4 g/dL (3.2-5.2); Albumin/Globulin Ratio 1.3 (1-3); Calcium 8.8 mg/dL (8.6-10.3); Creatinine, Serum 0.54 mg/dL (0.51-0.95); Globulin 2.6 g/dL (2-4); Potassium 4.1 mmol/L (3.5-5.0); Total Bilirubin 0.4 mg/dL (0.2-1.0); eGFR CKD-EPI 90.2 (>60)
[2023-03-16] MEDS: Polyethylene Glycol 3350 17 GM PACKET PO SCH (09:56)
[2023-03-16 12:30] LABS: C Reactive Protein 18.16 mg/L (<8.01)
[2023-03-16] MEDS: Scopolamine 1 mg/72hr PATCH TRANSDERM SCH (14:06)
[2023-03-16] MEDS: Carbidopa/Levodop 25/100 MG TAB PO SCH (19:52)
[2023-03-16] MEDS: Senna TAB 8.6 mg TAB PO PRN (19:52)
[2023-03-17] MEDS: Heparin DRIP 25,000 UNITS BAG 25,000 UNITS/500 ML BAG IV SCH (01:26)
[2023-03-17] MEDS: ceFAZolin 1 GM ADVAN 1 GM in NS 0.9% 50 ML 50 ML IVPB SCH ×3 (05:16→20:26)
[2023-03-17 05:27] LABS: ABS Eosinophils 0.2 10^3/uL (0.0-0.5); ABS Lymphocytes 1.9 10^3/uL (1.0-4.8); ABS Neutrophils 2.8 10^3/uL (1.5-7.6); Eosinophil % 2.6 %; Hematocrit 30.1 % (35-45); Hemoglobin 10.5 g/dL (11.5-14.3); Lymphocyte % 32.7 %; Mean Corpuscular Hemoglobin 33.2 pg (27-33); Mean Corpuscular Hgb Conc 34.8 g/dL (31-36); Mean Corpuscular Volume 95.3 fL (80-97); Mean Platelet Volume 7.7 fL (7.5-11.2); Platelet Count 200 10^3/uL (150-450); Red Blood Count 3.15 10^6/uL (3.63-4.92); Red Cell Distribution Width 13.9 % (12-17); White Blood Count 5.9 10^3/uL (3.8-11.8)
[2023-03-17 05:43] LABS: Creatinine, Serum 0.54 mg/dL (0.51-0.95); eGFR CKD-EPI 90.2 (>60)
[2023-03-17] MEDS: Polyethylene Glycol 3350 17 GM PACKET PO SCH (09:54)
[2023-03-17] MEDS: Carbidopa/Levodop 25/100 MG TAB PO SCH (20:24)
[2023-03-18] MEDS: Heparin DRIP 25,000 UNITS BAG 25,000 UNITS/500 ML BAG IV SCH (03:30)
[2023-03-18] MEDS: ceFAZolin 1 GM ADVAN 1 GM in NS 0.9% 50 ML 50 ML IVPB SCH ×3 (05:01→20:14)
[2023-03-18 05:09] LABS: ABS Eosinophils 0.2 10^3/uL (0.0-0.5); ABS Lymphocytes 1.9 10^3/uL (1.0-4.8); ABS Monocytes 0.9 10^3/uL (0.0-0.9); ABS Neutrophils 1.8 10^3/uL (1.5-7.6); Eosinophil % 3.2 %; Hematocrit 30.6 % (35-45); Hemoglobin 10.4 g/dL (11.5-14.3); Lymphocyte % 39.9 %; Mean Corpuscular Hemoglobin 32.8 pg (27-33); Mean Corpuscular Hgb Conc 34.2 g/dL (31-36); Mean Corpuscular Volume 95.9 fL (80-97); Mean Platelet Volume 7.5 fL (7.5-11.2); Nucleated Red Blood Cells % 0.1 /100 WBC (0.0-0.4); Platelet Count 218 10^3/uL (150-450); Red Blood Count 3.19 10^6/uL (3.63-4.92); Red Cell Distribution Width 13.8 % (12-17); White Blood Count 4.7 10^3/uL (3.8-11.8)
[2023-03-18] MEDS: Polyethylene Glycol 3350 17 GM PACKET PO SCH (08:39)
[2023-03-18] MEDS: Carbidopa/Levodop 25/100 MG TAB PO SCH (20:12)
[2023-03-18] MEDS: Senna TAB 8.6 mg TAB PO PRN (20:13)
[2023-03-19] MEDS: ceFAZolin 1 GM ADVAN 1 GM in NS 0.9% 50 ML 50 ML IVPB SCH ×3 (04:37→20:16)
[2023-03-19] MEDS: Heparin DRIP 25,000 UNITS BAG 25,000 UNITS/500 ML BAG IV SCH (04:40)
[2023-03-19 05:51] LABS: ABS Eosinophils 0.2 10^3/uL (0.0-0.5); ABS Lymphocytes 1.9 10^3/uL (1.0-4.8); ABS Neutrophils 2.1 10^3/uL (1.5-7.6); Eosinophil % 3.5 %; Hematocrit 32.4 % (35-45); Hemoglobin 10.9 g/dL (11.5-14.3); Lymphocyte % 37.1 %; Mean Corpuscular Hemoglobin 32.1 pg (27-33); Mean Corpuscular Hgb Conc 33.6 g/dL (31-36); Mean Corpuscular Volume 95.4 fL (80-97); Mean Platelet Volume 7.8 fL (7.5-11.2); Platelet Count 255 10^3/uL (150-450); Red Cell Distribution Width 14.3 % (12-17); White Blood Count 5.2 10^3/uL (3.8-11.8)
[2023-03-19 06:02] LABS: Calcium 8.7 mg/dL (8.6-10.3); Creatinine, Serum 0.6 mg/dL (0.51-0.95); Potassium 4.5 mmol/L (3.5-5.0); eGFR CKD-EPI 87.9 (>60)
[2023-03-19] MEDS ORDERED: Rocuronium 50 mg VIAL 10 mg/ml 5 ml VIAL (50 mg) ONE (09:00)
[2023-03-19] MEDS ORDERED: fentaNYL 250 mcg/5 ml 50 MCG/ML 5 ml VIAL (250 MCG) ONE (09:01)
[2023-03-19] MEDS ORDERED: Phenylephrine IV 10 MG/ML 1 ml VIAL ONE (09:01)
[2023-03-19] MEDS ORDERED: Iohexol 350 (CONTRAST) 100 ML PAK IV ONE ×2 (09:20→10:37)
[2023-03-19] MEDS ORDERED: Heparin 2 UNITS/ML IVPREMIX 3,000 UNIT/1,500 ML BAG IV ONE (09:20)
[2023-03-19] MEDS ORDERED: Lidocaine 1% MPF 5 ML VIAL ONE (09:20)
[2023-03-19] MEDS ORDERED: Heparin 1,000 UNIT/ML 10 ml (10,000 UNITS) CATHLAB/DIALYSIS ONE (09:21)
[2023-03-19] MEDS ORDERED: Dexamethasone IV 4 MG/ML VIAL 1 ml VIAL ONE (11:00)
[2023-03-19] MEDS ORDERED: Propofol 10 MG/ML 20 ML BTL ONE (11:00)
[2023-03-19] MEDS: Polyethylene Glycol 3350 17 GM PACKET PO SCH (12:35)
[2023-03-19] MEDS: Scopolamine 1 mg/72hr PATCH TRANSDERM SCH (15:37)
[2023-03-19] MEDS: Carbidopa/Levodop 25/100 MG TAB PO SCH (20:13)
[2023-03-20] MEDS: ceFAZolin 1 GM ADVAN 1 GM in NS 0.9% 50 ML 50 ML IVPB SCH (05:22)
[2023-03-20 05:41] LABS: ABS Lymphocytes 1.6 10^3/uL (1.0-4.8); ABS Neutrophils 3.9 10^3/uL (1.5-7.6); Eosinophil % 0.1 %; Hematocrit 30.1 % (35-45); Hemoglobin 10.3 g/dL (11.5-14.3); Mean Corpuscular Hemoglobin 32.9 pg (27-33); Mean Corpuscular Hgb Conc 34.3 g/dL (31-36); Mean Corpuscular Volume 96.1 fL (80-97); Platelet Count 249 10^3/uL (150-450); Red Blood Count 3.13 10^6/uL (3.63-4.92); Red Cell Distribution Width 13.9 % (12-17); White Blood Count 6.5 10^3/uL (3.8-11.8)
[2023-03-20] MEDS: Polyethylene Glycol 3350 17 GM PACKET PO SCH (10:00)
[2023-03-20 11:20] VITALS: BP 132/62
== END 2023-03-20 14:38 | disposition home or self-care (01) | DRG 271 ==
LOC: CHOA 10:06 → SUATTDRO 13:59 → MED 13:59
PROVIDERS: ADMIT Internal Medicine Hematology & Oncology; ATTEND Internal Medicine

== ENCOUNTER 2024-02-05 12:33 | Inpatient (IN) ==
[2024-02-05 13:26] LABS: Hematocrit 25.8 % (35-45); Hemoglobin 8.6 g/dL (11.5-14.3); Mean Corpuscular Hgb Conc 33.3 g/dL (31-36); Platelet Count 235 10^3/uL (150-450); Red Blood Count 2.68 10^6/uL (3.63-4.92); Red Cell Distribution Width 16.9 % (12-17); White Blood Count 1.5 10^3/uL (3.8-11.8)
[2024-02-05 13:39] LABS: INR 1.15 (0.83-1.13)
[2024-02-05 14:01] LABS: Albumin/Globulin Ratio 1.4 (1-3); Calcium 8.2 mg/dL (8.6-10.3); Creatinine, Serum 0.67 mg/dL (0.51-0.95); Globulin 2.2 g/dL (2-4); Magnesium 1.6 mg/dL (1.9-2.7); Potassium 3.7 mmol/L (3.5-5.0); Total Bilirubin 0.5 mg/dL (0.2-1.0); Total Protein 5.2 g/dL (6.4-8.9); eGFR CKD-EPI 85.1 (>60)
[2024-02-05 14:15] LABS: TSH Ultra Thyroid Stim Horm 1.49 mcIU/mL (0.34-5.60)
[2024-02-05 14:42] LABS: ABS Lymphocytes 0.6 10^3/uL (1.0-4.8); ABS Monocytes 0.6 10^3/uL (0.0-0.9); ABS Neutrophils 0.3 10^3/uL (1.5-7.6); ABS Nucleated RBC 0.01 10^3/ul; Eosinophil % 0.2 %; Lymphocyte % 42.1 %; Nucleated Red Blood Cells % 0.6 %/100WBC (0.0-0.8); RBC Morphology Normal (Normal)
[2024-02-05 15:13] LABS: High Sensitivity Troponin 1 Hr 39 pg/mL (<15)
[2024-02-05] MEDS: Magnesium Sulfate 2 gm BAG 2 GM/50 ML BAG IVPB ONE ×2 (15:49→21:34)
[2024-02-05] MEDS: Iohexol 350 (CONTRAST) 500 ML MDV IV ONE (17:52)
[2024-02-05] MEDS: Cefepime 1 GM in Dextrose 1 GM/50 ML BAG IV ONE (18:26)
[2024-02-05] MEDS ORDERED: Vancomycin 1,500 MG in NS 0.9% 250 ml 250 ML IVPB SCH (23:13)
[2024-02-06] MEDS ORDERED: Vancomycin per Pharmacy 1 EA NOTE FOLLOW UP PRN (00:59)
[2024-02-06] MEDS: Vancomycin 1,750 MG in NS 0.9% 500 ml BAG 500 ML IVPB ONE (02:56)
[2024-02-06] MEDS: Enoxaparin 100 MG/ML SYR SUBCUT SCH (02:57)
[2024-02-06 07:54] LABS: Hematocrit 26.1 % (35-45); Hemoglobin 8.9 g/dL (11.5-14.3); Mean Corpuscular Hemoglobin 32.8 pg (27-33); Mean Corpuscular Hgb Conc 34.1 g/dL (31-36); Mean Platelet Volume 7.9 fL (7.5-11.2); Platelet Count 252 10^3/uL (150-450); Red Blood Count 2.72 10^6/uL (3.63-4.92); White Blood Count 1.6 10^3/uL (3.8-11.8)
[2024-02-06 08:14] LABS: Calcium 7.9 mg/dL (8.6-10.3); Creatinine, Serum 0.76 mg/dL (0.51-0.95); Potassium 3.6 mmol/L (3.5-5.0); eGFR CKD-EPI 76.3 (>60)
[2024-02-06 08:57] LABS: ABS Lymphocytes 0.6 10^3/uL (1.0-4.8); ABS Monocytes 0.6 10^3/uL (0.0-0.9); ABS Neutrophils 0.4 10^3/uL (1.5-7.6); ABS Nucleated RBC 0.01 10^3/ul; Eosinophil % 0.1 %; Nucleated Red Blood Cells % 0.7 %/100WBC (0.0-0.8)
[2024-02-06 09:03] LABS: Anisocytosis 1+
[2024-02-06] MEDS: Cefepime 2 GM in Dextrose 2 GM/50 ML BAG IV SCH (09:19)
[2024-02-06] MEDS: Polyethylene Glycol 3350 17 GM PACKET PO PRN (09:19)
[2024-02-06] MEDS: Sulfur Hexaflouride MICROSPHR 25 MG VIAL IV ONE (14:25)
[2024-02-06] MEDS: Vancomycin Random Level NOTE FOLLOW UP ONE (16:32)
[2024-02-06] MEDS: Vancomycin 750 MG in NS 0.9% 250 ML IVPB SCH (18:37)
[2024-02-06] MEDS ORDERED: Enoxaparin 100 MG/ML SYR SUBCUT SCH (21:00)
[2024-02-06] MEDS: Enoxaparin 80 MG/0.8 ML SYR SUBCUT SCH (21:46)
[2024-02-07 06:41] LABS: Calcium 8.5 mg/dL (8.6-10.3); Creatinine, Serum 0.77 mg/dL (0.51-0.95); Potassium 3.4 mmol/L (3.5-5.0); eGFR CKD-EPI 75.1 (>60)
[2024-02-07 06:44] LABS: Hematocrit 27.7 % (35-45); Hemoglobin 9.4 g/dL (11.5-14.3); Mean Corpuscular Hemoglobin 32.2 pg (27-33); Mean Corpuscular Hgb Conc 33.8 g/dL (31-36); Mean Corpuscular Volume 95.3 fL (80-97); Mean Platelet Volume 8.5 fL (7.5-11.2); Platelet Count 300 10^3/uL (150-450); Red Cell Distribution Width 16.6 % (12-17); White Blood Count 1.8 10^3/uL (3.8-11.8)
[2024-02-07 08:40] LABS: ABS Lymphocytes 0.7 10^3/uL (1.0-4.8); ABS Monocytes 0.7 10^3/uL (0.0-0.9); ABS Neutrophils 0.4 10^3/uL (1.5-7.6); ABS Nucleated RBC 0.01 10^3/ul; Anisocytosis 1+; Eosinophil % 0.1 %; Lymphocyte % 39.8 %; Nucleated Red Blood Cells % 0.4 %/100WBC (0.0-0.8)
[2024-02-07] MEDS: Potassium Chloride LIQUID 20 MEQ/15 ML LIQUID PO ONE (12:41)
[2024-02-07] MEDS ORDERED: KCL 20 MEQ/100 ML IVPREMIX 20 MEQ/100 ML BAG IV SCH (14:00)
[2024-02-07] MEDS: Iohexol 300 (CONTRAST) 10 ML SDV IV ONE (14:43)
[2024-02-07] MEDS: KCL 20 MEQ/100 ML IVPREMIX 20 MEQ/100 ML BAG IV SCH (14:51)
[2024-02-07] MEDS: Scopolamine 1 mg/72hr PATCH TRANSDERM PRN (15:48)
[2024-02-07] MEDS: levETIRAcetam 1000MG IVPREMIX 1,000 MG/100 ML BAG IVPB ONE (15:57)
[2024-02-07] MEDS ORDERED: cefTRIAXone 1 gm/50 mL D5W 1 GM/50 ML BAG IV SCH (18:00)
[2024-02-07] MEDS: Gadoteridol (CONTRAST) 279.3 MG/ML 10 ML IV ONE (20:20)
[2024-02-07] MEDS: cefTRIAXone 1 gm/50 mL D5W 1 GM/50 ML BAG IV SCH (21:29)
[2024-02-08] MEDS: Al Hydrox/Mg Hydrox/Simet LIQ 30 ML UDC PO ONE (03:31)
[2024-02-08] MEDS ORDERED: Vancomycin Trough Check NOTE FOLLOW UP ONE (05:30)
[2024-02-08 06:36] LABS: Creatinine, Serum 0.78 mg/dL (0.51-0.95); Vancomycin Trough 12.4 mcg/mL; eGFR CKD-EPI 73.9 (>60)
[2024-02-08 12:31] LABS: Hematocrit 27.9 % (35-45); Hemoglobin 9.4 g/dL (11.5-14.3); Mean Corpuscular Hemoglobin 32.2 pg (27-33); Mean Corpuscular Hgb Conc 33.6 g/dL (31-36); Mean Corpuscular Volume 95.9 fL (80-97); Mean Platelet Volume 7.9 fL (7.5-11.2); Platelet Count 329 10^3/uL (150-450); Red Cell Distribution Width 17.3 % (12-17); White Blood Count 4.4 10^3/uL (3.8-11.8)
[2024-02-08 12:59] LABS: ABS Lymphocytes 1.3 10^3/uL (1.0-4.8); ABS Monocytes 1.4 10^3/uL (0.0-0.9); ABS Neutrophils 1.7 10^3/uL (1.5-7.6); ABS Nucleated RBC 0.04 10^3/ul; Eosinophil % 0.1 %; Lymphocyte % 29.1 %; Nucleated Red Blood Cells % 0.9 %/100WBC (0.0-0.8); RBC Morphology Normal (Normal); Smudge Cells Present
[2024-02-08] MEDS: Lactated Ringers 1000 ml BAG 1,000 ML IV SCH (14:29)
[2024-02-09 05:33] LABS: Hematocrit 25.7 % (35-45); Hemoglobin 8.7 g/dL (11.5-14.3); Mean Corpuscular Hemoglobin 32.3 pg (27-33); Mean Corpuscular Hgb Conc 33.7 g/dL (31-36); Mean Platelet Volume 8.1 fL (7.5-11.2); Platelet Count 307 10^3/uL (150-450); Red Blood Count 2.68 10^6/uL (3.63-4.92); Red Cell Distribution Width 17.8 % (12-17); White Blood Count 8.1 10^3/uL (3.8-11.8)
[2024-02-09 05:59] LABS: Calcium 7.9 mg/dL (8.6-10.3); Creatinine, Serum 0.73 mg/dL (0.51-0.95); Potassium 3.2 mmol/L (3.5-5.0)
[2024-02-09 06:32] LABS: ABS Lymphocytes 1.5 10^3/uL (1.0-4.8); ABS Monocytes 2.1 10^3/uL (0.0-0.9); ABS Neutrophils 4.4 10^3/uL (1.5-7.6); ABS Nucleated RBC 0.04 10^3/ul; Basophilic Stippling 1+; Lymphocyte % 18.8 %; Nucleated Red Blood Cells % 0.5 %/100WBC (0.0-0.8); Polychromasia 1+; Smudge Cells Present
[2024-02-09] MEDS: Potassium Chlor 20 meq TAB.ER PO SCH (09:07)
[2024-02-09 11:53] LABS: Magnesium 1.5 mg/dL (1.9-2.7)
[2024-02-09] MEDS: KCL 20 MEQ/100 ML IVPREMIX 20 MEQ/100 ML BAG IV ONE (13:22)
[2024-02-10 06:41] LABS: Hemoglobin 8.9 g/dL (11.5-14.3); Mean Corpuscular Hgb Conc 32.8 g/dL (31-36); Mean Corpuscular Volume 97.5 fL (80-97); Mean Platelet Volume 8.4 fL (7.5-11.2); Platelet Count 356 10^3/uL (150-450); Red Blood Count 2.77 10^6/uL (3.63-4.92); Red Cell Distribution Width 17.9 % (12-17); White Blood Count 12.9 10^3/uL (3.8-11.8)
[2024-02-10 07:08] LABS: Calcium 8.4 mg/dL (8.6-10.3); Creatinine, Serum 0.8 mg/dL (0.51-0.95); Magnesium 1.4 mg/dL (1.9-2.7); Potassium 3.5 mmol/L (3.5-5.0); eGFR CKD-EPI 71.7 (>60)
[2024-02-10 07:46] LABS: ABS Lymphocytes 2.5 10^3/uL (1.0-4.8); ABS Neutrophils 8.5 10^3/uL (1.5-7.6); ABS Nucleated RBC 0.05 10^3/ul; Anisocytosis 1+; Lymphocyte % 19.2 %; Nucleated Red Blood Cells % 0.4 %/100WBC (0.0-0.8); Polychromasia 1+; Toxic Granulation 1+
[2024-02-10] MEDS: Magnesium Sulf 4 GM/100 ML IV 4,000 MG/100 ML BAG IVPB ONE (09:05)
[2024-02-10] MEDS: Potassium Chloride LIQUID 20 MEQ/15 ML LIQUID PO ONE (09:06)
[2024-02-10] MEDS: Senna TAB 8.6 mg TAB PO PRN (15:21)
[2024-02-10 15:26] LABS: Calcium 8.9 mg/dL (8.6-10.3); Creatinine, Serum 0.95 mg/dL (0.51-0.95); Magnesium 2.8 mg/dL (1.9-2.7); eGFR CKD-EPI 58.3 (>60)
[2024-02-11 05:51] LABS: Hematocrit 28.6 % (35-45); Hemoglobin 9.7 g/dL (11.5-14.3); Mean Corpuscular Hemoglobin 32.9 pg (27-33); Mean Corpuscular Volume 96.8 fL (80-97); Mean Platelet Volume 8.1 fL (7.5-11.2); Platelet Count 353 10^3/uL (150-450); Red Blood Count 2.95 10^6/uL (3.63-4.92); Red Cell Distribution Width 17.7 % (12-17); White Blood Count 9.7 10^3/uL (3.8-11.8)
[2024-02-11 06:34] LABS: Calcium 8.3 mg/dL (8.6-10.3); Creatinine, Serum 0.85 mg/dL (0.51-0.95); Phosphorus 2.7 mg/dL (2.5-5.0); Potassium 3.6 mmol/L (3.5-5.0); eGFR CKD-EPI 66.7 (>60)
[2024-02-11 14:01] VITALS: BP 139/71
== END 2024-02-11 17:22 | disposition home or self-care (01) | DRG 872 ==
LOC: ED 12:33 → EDHOLD 12:33 → SUATTDRO 21:00 → OBSVTOIN 21:00 → INTOOBSV 21:00 → MEDTELE 02-06 01:12
PROVIDERS: ADMIT Internal Medicine; ATTEND Hospitalist

== ENCOUNTER 2024-03-17 18:25 | Inpatient (IN) ==
[2024-03-17 19:52] LABS: ABS Lymphocytes 1.1 10^3/uL (1.0-4.8); ABS Monocytes 0.5 10^3/uL (0.0-0.9); ABS Neutrophils 3.7 10^3/uL (1.5-7.6); ABS Nucleated RBC 0.01 10^3/ul; Eosinophil % 0.6 %; Hematocrit 24.7 % (35-45); Hemoglobin 8.4 g/dL (11.5-14.3); Mean Corpuscular Hemoglobin 32.3 pg (27-33); Mean Corpuscular Volume 94.8 fL (80-97); Mean Platelet Volume 7.7 fL (7.5-11.2); Nucleated Red Blood Cells % 0.1 %/100WBC (0.0-0.8); Platelet Count 277 10^3/uL (150-450); Red Blood Count 2.61 10^6/uL (3.63-4.92); Red Cell Distribution Width 19.6 % (12-17); White Blood Count 5.4 10^3/uL (3.8-11.8)
[2024-03-17 19:58] LABS: INR 1.46 (0.85-1.14)
[2024-03-17 20:24] LABS: Albumin 2.6 g/dL (3.2-5.2); Calcium 8.3 mg/dL (8.6-10.3); Creatinine, Serum 1.05 mg/dL (0.51-0.95); Globulin 2.6 g/dL (2-4); Potassium 4.4 mmol/L (3.5-5.0); Total Bilirubin 0.5 mg/dL (0.2-1.0); Total Protein 5.2 g/dL (6.4-8.9); eGFR CKD-EPI 51.7 (>60)
[2024-03-17] MEDS: Furosemide 20 mg/2 ml IV VIAL IV ONE (20:33)
[2024-03-17 21:26] LABS: Magnesium 1.7 mg/dL (1.9-2.7)
[2024-03-17] MEDS: Iodixanol (CONTRAST) 320 MG/ML 100 ML SDV IV ONE (22:08)
[2024-03-17] MEDS: Heparin 5000 UNITS/ML 1 mL VIAL IV SCH (23:39)
[2024-03-17] MEDS: Heparin DRIP 25,000 UNITS BAG 25,000 UNITS/250 ML BAG IV SCH (23:42)
[2024-03-18] MEDS ORDERED: Scopolamine 1 mg/72hr PATCH TRANSDERM PRN (02:41)
[2024-03-18 03:03] LABS: HDL Cholesterol 31.8 mg/dL
[2024-03-18 03:23] LABS: Ferritin 887.9 ng/mL (11-307)
[2024-03-18] MEDS: Furosemide 20 mg/2 ml IV VIAL IV SLOW PU ONE (06:40)
[2024-03-18 06:49] LABS: Hematocrit 24.5 % (35-45); Hemoglobin 8.3 g/dL (11.5-14.3); Mean Corpuscular Hgb Conc 34.1 g/dL (31-36); Mean Corpuscular Volume 93.7 fL (80-97); Mean Platelet Volume 7.9 fL (7.5-11.2); Platelet Count 285 10^3/uL (150-450); Red Blood Count 2.61 10^6/uL (3.63-4.92); Red Cell Distribution Width 19.7 % (12-17); White Blood Count 7.6 10^3/uL (3.8-11.8)
[2024-03-18 07:39] LABS: Calcium 7.8 mg/dL (8.6-10.3); Creatinine, Serum 0.87 mg/dL (0.51-0.95); Potassium 3.8 mmol/L (3.5-5.0); eGFR CKD-EPI 64.8 (>60)
[2024-03-18] MEDS ORDERED: Sulfur Hexaflouride MICROSPHR 25 MG VIAL ONE (08:31)
[2024-03-18] MEDS: Sulfur Hexaflouride MICROSPHR 25 MG VIAL IV ONE (08:33)
[2024-03-19] MEDS: Morphine 2 MG/ML SYRINGE IV ONE (01:55)
[2024-03-19 02:04] LABS: PCO2 Arterial 25 mmHg (35-45); PO2 Arterial 170 mmHg (80-100)
[2024-03-19] MEDS: nitroGLYCERIN DRIP 25,000 MCG/250 ML BTL IV SCH (02:14)
[2024-03-19] MEDS: Norepinephrine 4 MG/250mL D5W 4,000 MCG/250 ML BAG IV SCH (02:45)
[2024-03-19 02:48] LABS: ABS Lymphocytes 0.8 10^3/uL (1.0-4.8); ABS Monocytes 0.1 10^3/uL (0.0-0.9); ABS Neutrophils 9.7 10^3/uL (1.5-7.6); ABS Nucleated RBC 0.01 10^3/ul; Eosinophil % 0.1 %; Hematocrit 26.7 % (35-45); Lymphocyte % 7.3 %; Mean Corpuscular Hemoglobin 31.6 pg (27-33); Mean Corpuscular Hgb Conc 33.7 g/dL (31-36); Mean Corpuscular Volume 93.8 fL (80-97); Mean Platelet Volume 8.2 fL (7.5-11.2); Nucleated Red Blood Cells % 0.1 %/100WBC (0.0-0.8); Platelet Count 263 10^3/uL (150-450); Red Blood Count 2.85 10^6/uL (3.63-4.92); Red Cell Distribution Width 20.3 % (12-17); White Blood Count 10.7 10^3/uL (3.8-11.8)
[2024-03-19 03:15] LABS: Albumin 2.6 g/dL (3.2-5.2); Creatinine, Serum 1.13 mg/dL (0.51-0.95); Globulin 2.7 g/dL (2-4); Magnesium 1.4 mg/dL (1.9-2.7); Potassium 3.3 mmol/L (3.5-5.0); Total Bilirubin 0.9 mg/dL (0.2-1.0); Total Protein 5.3 g/dL (6.4-8.9); eGFR CKD-EPI 47.4 (>60)
[2024-03-19] MEDS: Piperacillin/Tazobac 3.375 BAG 3.375 GM/100 ML BAG IV ONE (03:39)
[2024-03-19] MEDS ORDERED: Zosyn per Pharmacy NOTE FOLLOW UP SCH (04:00)
[2024-03-19] MEDS: Magnesium Sulf 4 GM/100 ML IV 4,000 MG/100 ML BAG IVPB ONE (04:22)
[2024-03-19] MEDS: nitroGLYCERIN DRIP 25,000 MCG/250 ML BTL ONE (04:23)
[2024-03-19] MEDS: Norepinephrine 4 MG/250mL D5W 4,000 MCG/250 ML BAG IV ONE (04:23)
[2024-03-19] MEDS: Phenylephrine 40 mcg/mL 10mL (400mcg) SYRINGE ONE (04:24)
[2024-03-19] MEDS: Furosemide 20 mg/2 ml IV VIAL IV SLOW PU ONE (06:21)
[2024-03-19 06:37] LABS: Venous Bicarbonate HCO3 27.6 mmol/L (24-28)
[2024-03-19] MEDS: ZOSYN 3.375 GM Q8H per EXTENDED INFUSION IV SCH (08:34)
[2024-03-19] MEDS: Potassium Chlor 20 meq TAB.ER PO ONE (14:33)
[2024-03-19] MEDS: Acetaminophen IV 1 GM/100ML 1,000 MG/100 ML BAG IV PRN (15:05)
[2024-03-19] MEDS: Potassium Chloride LIQUID 20 MEQ/15 ML LIQUID PO ONE (15:42)
[2024-03-19] MEDS: Acetaminophen IV 1 GM/100ML 1,000 MG/100 ML BAG IV ONE (17:32)
[2024-03-19] MEDS: cefTRIAXone 2 gm/50 mL D5W 2 GM/50 ML BAG IV SCH (18:14)
[2024-03-19] MEDS ORDERED: Magnesium Hydroxide LIQ 30 ML UDC PO PRN (18:41)
[2024-03-19] MEDS ORDERED: Polyethylene Glycol 3350 17 GM PACKET PO PRN (18:41)
[2024-03-19] MEDS ORDERED: Senna TAB 8.6 mg TAB PO PRN (18:41)
[2024-03-19] MEDS: Magnesium Hydroxide LIQ 30 ML UDC PO SCH (21:47)
[2024-03-20 06:12] LABS: Hematocrit 26.7 % (35-45); Hemoglobin 8.9 g/dL (11.5-14.3); Mean Corpuscular Hemoglobin 31.5 pg (27-33); Mean Corpuscular Hgb Conc 33.3 g/dL (31-36); Mean Corpuscular Volume 94.5 fL (80-97); Mean Platelet Volume 9.2 fL (7.5-11.2); Platelet Count 165 10^3/uL (150-450); Red Blood Count 2.82 10^6/uL (3.63-4.92); Red Cell Distribution Width 20.2 % (12-17); White Blood Count 17.2 10^3/uL (3.8-11.8)
[2024-03-20 06:33] LABS: Albumin 2.4 g/dL (3.2-5.2); Albumin/Globulin Ratio 0.9 (1-3); Calcium 7.6 mg/dL (8.6-10.3); Creatinine, Serum 1.19 mg/dL (0.51-0.95); Globulin 2.8 g/dL (2-4); Magnesium 2.2 mg/dL (1.9-2.7); Phosphorus 2.9 mg/dL (2.5-5.0); Potassium 3.5 mmol/L (3.5-5.0); Total Bilirubin 0.6 mg/dL (0.2-1.0); Total Protein 5.2 g/dL (6.4-8.9); eGFR CKD-EPI 44.5 (>60)
[2024-03-20 07:55] LABS: ABS Lymphocytes 0.6 10^3/uL (1.0-4.8); ABS Monocytes 0.2 10^3/uL (0.0-0.9); ABS Neutrophils 16.3 10^3/uL (1.5-7.6); ABS Nucleated RBC 0.01 10^3/ul; Anisocytosis 1+; Eosinophil % 0.1 %; Lymphocyte % 3.6 %; Nucleated Red Blood Cells % 0.1 %/100WBC (0.0-0.8)
[2024-03-20] MEDS: Potassium Chloride LIQUID 20 MEQ/15 ML LIQUID PO ONE (12:39)
[2024-03-20] MEDS: Potassium Chlor 20 meq TAB.ER PO ONE (13:10)
[2024-03-21] MEDS: Morphine 2 MG/ML SYRINGE IV PRN (04:02)
[2024-03-21] MEDS ORDERED: Lorazepam PYXIS KEY PRN (04:09)
[2024-03-21] MEDS: LORazepam 2 mg VIAL 1 ml IV PUSH ONE (04:12)
[2024-03-21] MEDS: LORazepam 2 mg VIAL 1 ml ONE (04:12)
[2024-03-21 05:14] LABS: ABS Lymphocytes 0.6 10^3/uL (1.0-4.8); ABS Monocytes 0.2 10^3/uL (0.0-0.9); ABS Neutrophils 11.5 10^3/uL (1.5-7.6); Eosinophil % 0.4 %; Hematocrit 25.9 % (35-45); Hemoglobin 8.7 g/dL (11.5-14.3); Lymphocyte % 4.8 %; Mean Corpuscular Hemoglobin 31.4 pg (27-33); Mean Corpuscular Hgb Conc 33.7 g/dL (31-36); Mean Corpuscular Volume 93.4 fL (80-97); Platelet Count 116 10^3/uL (150-450); Red Blood Count 2.77 10^6/uL (3.63-4.92); Red Cell Distribution Width 20.4 % (12-17); White Blood Count 12.3 10^3/uL (3.8-11.8)
[2024-03-21 05:41] LABS: Albumin 2.4 g/dL (3.2-5.2); Albumin/Globulin Ratio 0.9 (1-3); Calcium 7.7 mg/dL (8.6-10.3); Creatinine, Serum 1.11 mg/dL (0.51-0.95); Globulin 2.8 g/dL (2-4); Magnesium 2.1 mg/dL (1.9-2.7); Phosphorus 2.3 mg/dL (2.5-5.0); Potassium 4.1 mmol/L (3.5-5.0); Total Bilirubin 0.5 mg/dL (0.2-1.0); Total Protein 5.2 g/dL (6.4-8.9); eGFR CKD-EPI 48.4 (>60)
[2024-03-21 05:51] LABS: Urine Appearance Turbid; Urine Bilirubin Negative (Negative); Urine Blood 1+ (Negative); Urine Color Yellow; Urine Glucose Negative (Negative); Urine Ketones Negative (Negative); Urine Nitrite Negative (Negative); Urine Protein 1+ (>=30 mg/dL) (Negative); Urine Specific Gravity 1.024 (1.002-1.030); Urine Urobilinogen Negative (Negative); Urine pH 5.5 (5.0-8.0)
[2024-03-21 05:55] LABS: Urine Bacteria 1+ /HPF (Absent); Urine Red Blood Cell 1+(3-5/hpf) /HPF (0-Trace); Urine Squamous Epithelial Cell Present /HPF (Absent); Urine White Blood Cell 3+(>20/hpf) /HPF (0-Trace)
[2024-03-21 06:59] LABS: Urine Transitional Epithelial Present /HPF (Absent); Urine Uric Acid Crystals Present /HPF (Absent)
[2024-03-22] MEDS: Metoprolol Tartrate 5 mg VIAL 5 ml VIAL (1 mg/ml) IV PRN (01:33)
[2024-03-22 04:22] LABS: ABS Lymphocytes 0.7 10^3/uL (1.0-4.8); ABS Monocytes 0.6 10^3/uL (0.0-0.9); ABS Neutrophils 8.5 10^3/uL (1.5-7.6); ABS Nucleated RBC 0.01 10^3/ul; Eosinophil % 0.2 %; Hematocrit 22.2 % (35-45); Hemoglobin 7.3 g/dL (11.5-14.3); Lymphocyte % 7.3 %; Mean Corpuscular Hemoglobin 30.7 pg (27-33); Mean Corpuscular Hgb Conc 32.8 g/dL (31-36); Mean Corpuscular Volume 93.6 fL (80-97); Mean Platelet Volume 9.9 fL (7.5-11.2); Nucleated Red Blood Cells % 0.1 %/100WBC (0.0-0.8); Platelet Count 102 10^3/uL (150-450); Red Blood Count 2.38 10^6/uL (3.63-4.92); Red Cell Distribution Width 20.1 % (12-17); White Blood Count 9.9 10^3/uL (3.8-11.8)
[2024-03-22 04:46] LABS: Activated Partial Thrombo Time 40.1 seconds (26.0-38.0); INR 2.29 (0.85-1.14)
[2024-03-22 05:10] LABS: Albumin 2.2 g/dL (3.2-5.2); Albumin/Globulin Ratio 0.9 (1-3); C Reactive Protein 213.93 mg/L (<8.01); Calcium 7.8 mg/dL (8.6-10.3); Creatinine, Serum 0.88 mg/dL (0.51-0.95); Globulin 2.4 g/dL (2-4); Phosphorus 2.3 mg/dL (2.5-5.0); Potassium 4.5 mmol/L (3.5-5.0); Total Bilirubin 0.5 mg/dL (0.2-1.0); Total Protein 4.6 g/dL (6.4-8.9)
[2024-03-23 06:00] LABS: ABS Monocytes 0.4 10^3/uL (0.0-0.9); ABS Neutrophils 7.4 10^3/uL (1.5-7.6); Eosinophil % 0.2 %; Hematocrit 27.1 % (35-45); Hemoglobin 9.1 g/dL (11.5-14.3); Mean Corpuscular Hemoglobin 31.2 pg (27-33); Mean Corpuscular Hgb Conc 33.5 g/dL (31-36); Mean Corpuscular Volume 93.2 fL (80-97); Mean Platelet Volume 9.6 fL (7.5-11.2); Platelet Count 120 10^3/uL (150-450); Red Cell Distribution Width 20.5 % (12-17); White Blood Count 8.9 10^3/uL (3.8-11.8)
[2024-03-23 06:53] LABS: Calcium 8.5 mg/dL (8.6-10.3); Creatinine, Serum 0.91 mg/dL (0.51-0.95); Potassium 4.5 mmol/L (3.5-5.0); eGFR CKD-EPI 61.4 (>60)
[2024-03-23] MEDS: Metoprolol Tartrate 5 mg VIAL 5 ml VIAL (1 mg/ml) IV PRN (06:56)
[2024-03-23 13:00] LABS: C Reactive Protein 241.47 mg/L (<8.01)
[2024-03-23] MEDS: ceFAZolin 1 GM in Dextrose 1 GM/50 ML BAG IVPB SCH (17:28)
[2024-03-24 05:53] LABS: ABS Lymphocytes 1.1 10^3/uL (1.0-4.8); ABS Monocytes 0.6 10^3/uL (0.0-0.9); ABS Neutrophils 7.1 10^3/uL (1.5-7.6); Eosinophil % 0.1 %; Hematocrit 25.1 % (35-45); Hemoglobin 8.4 g/dL (11.5-14.3); Lymphocyte % 12.2 %; Mean Corpuscular Hemoglobin 31.2 pg (27-33); Mean Corpuscular Hgb Conc 33.3 g/dL (31-36); Mean Corpuscular Volume 93.5 fL (80-97); Mean Platelet Volume 9.8 fL (7.5-11.2); Platelet Count 119 10^3/uL (150-450); Red Blood Count 2.69 10^6/uL (3.63-4.92); Red Cell Distribution Width 20.4 % (12-17); White Blood Count 8.9 10^3/uL (3.8-11.8)
[2024-03-24 06:12] LABS: Calcium 8.5 mg/dL (8.6-10.3); Creatinine, Serum 1.08 mg/dL (0.51-0.95); Magnesium 2.1 mg/dL (1.9-2.7); Potassium 4.2 mmol/L (3.5-5.0)
[2024-03-24 14:09] VITALS: BP 106/58
== END 2024-03-24 18:57 | disposition home or self-care (01) | DRG 175 ==
LOC: ED 18:25 → EDHOLD 18:25 → OBSVTOIN 03-18 01:07 → SUATTDRO 03-18 01:07 → MEDTELE 03-18 09:20 → ICU 03-19 02:02 → MEDTELE 03-22 17:21
PROVIDERS: ADMIT Internal Medicine; ATTEND Student in an Organized Health Care Education/Training Program

== ENCOUNTER 2024-04-29 22:10 | Observation (INO) ==
[2024-04-29 23:13] LABS: ABS Lymphocytes 1.6 10^3/uL (1.0-4.8); ABS Monocytes 0.8 10^3/uL (0.0-0.9); ABS Neutrophils 5.8 10^3/uL (1.5-7.6); ABS Nucleated RBC 0.03 10^3/ul; Eosinophil % 0.3 %; Hematocrit 18.7 % (35-45); Hemoglobin 5.6 g/dL (11.5-14.3); Lymphocyte % 19.1 %; Mean Corpuscular Hemoglobin 28.7 pg (27-33); Mean Corpuscular Hgb Conc 29.9 g/dL (31-36); Mean Platelet Volume 9.1 fL (7.5-11.2); Nucleated Red Blood Cells % 0.3 %/100WBC (0.0-0.8); Platelet Count 226 10^3/uL (150-450); Red Blood Count 1.95 10^6/uL (3.63-4.92); Red Cell Distribution Width 22.4 % (12-17); White Blood Count 8.2 10^3/uL (3.8-11.8)
[2024-04-29] MEDS: NS 0.9% 1000 ml BAG 1,000 ML IV ONE (23:25)
[2024-04-29 23:36] LABS: Albumin 2.3 g/dL (3.2-5.2); Albumin/Globulin Ratio 0.8 (1-3); Calcium 8.4 mg/dL (8.6-10.3); Creatinine, Serum 0.72 mg/dL (0.51-0.95); Globulin 2.8 g/dL (2-4); Magnesium 1.8 mg/dL (1.9-2.7); Potassium 4.1 mmol/L (3.5-5.0); Total Bilirubin 0.5 mg/dL (0.2-1.0); Total Protein 5.1 g/dL (6.4-8.9); eGFR CKD-EPI 81.4 (>60)
[2024-04-30 00:26] LABS: TSH Ultra Thyroid Stim Horm 2.06 mcIU/mL (0.34-5.60)
[2024-04-30 00:27] LABS: High Sensitivity Troponin 1 Hr 31 pg/mL (<15)
[2024-04-30 01:54] LABS: Urine Appearance Extra Turbid; Urine Bilirubin Negative (Negative); Urine Blood 2+ (Negative); Urine Glucose Negative (Negative); Urine Ketones Negative (Negative); Urine Nitrite Negative (Negative); Urine Protein 2+ (>=100 mg/dL) (Negative); Urine Specific Gravity 1.015 (1.002-1.030); Urine Urobilinogen Negative (Negative); Urine pH 5.5 (5.0-8.0)
[2024-04-30 02:00] LABS: Urine Bacteria 3+ /HPF (Absent); Urine Red Blood Cell 2+(6-10/hpf) /HPF (0-Trace); Urine Squamous Epithelial Cell Present /HPF (Absent); Urine White Blood Cell 3+(>20/hpf) /HPF (0-Trace)
[2024-04-30 02:02] LABS: Urine Color Yellow
[2024-04-30] MEDS: cefTRIAXone 1 gm/50 mL D5W 1 GM/50 ML BAG IV ONE (03:00)
[2024-04-30] MEDS: Pantoprazole VIAL 40 MG VIAL IV SCH (05:42)
[2024-04-30 09:10] LABS: ABS Lymphocytes 1.4 10^3/uL (1.0-4.8); ABS Monocytes 0.9 10^3/uL (0.0-0.9); ABS Neutrophils 7.8 10^3/uL (1.5-7.6); ABS Nucleated RBC 0.02 10^3/ul; Eosinophil % 0.2 %; Hematocrit 26.4 % (35-45); Hemoglobin 8.8 g/dL (11.5-14.3); Lymphocyte % 13.8 %; Mean Corpuscular Hgb Conc 33.5 g/dL (31-36); Mean Corpuscular Volume 89.5 fL (80-97); Mean Platelet Volume 8.8 fL (7.5-11.2); Nucleated Red Blood Cells % 0.2 %/100WBC (0.0-0.8); Platelet Count 204 10^3/uL (150-450); Red Blood Count 2.95 10^6/uL (3.63-4.92); Red Cell Distribution Width 20.3 % (12-17); White Blood Count 10.1 10^3/uL (3.8-11.8)
[2024-04-30 09:58] LABS: Calcium 8.1 mg/dL (8.6-10.3); Creatinine, Serum 0.66 mg/dL (0.51-0.95); Potassium 4.2 mmol/L (3.5-5.0); eGFR CKD-EPI 85.4 (>60)
[2024-04-30] MEDS: Furosemide 20 mg/2 ml IV VIAL IV SLOW PU ONE (18:41)
[2024-04-30] MEDS: cefTRIAXone 1 gm/50 mL D5W 1 GM/50 ML BAG IV SCH (20:26)
[2024-05-01] MEDS ORDERED: cefTRIAXone 1 gm/50 mL D5W 1 GM/50 ML BAG IV SCH (03:00)
[2024-05-01 05:26] LABS: ABS Monocytes 0.9 10^3/uL (0.0-0.9); ABS Neutrophils 8.6 10^3/uL (1.5-7.6); ABS Nucleated RBC 0.01 10^3/ul; Eosinophil % 0.2 %; Hematocrit 27.6 % (35-45); Hemoglobin 9.3 g/dL (11.5-14.3); Lymphocyte % 9.8 %; Mean Corpuscular Hemoglobin 29.8 pg (27-33); Mean Corpuscular Hgb Conc 33.7 g/dL (31-36); Mean Corpuscular Volume 88.5 fL (80-97); Mean Platelet Volume 8.9 fL (7.5-11.2); Nucleated Red Blood Cells % 0.1 %/100WBC (0.0-0.8); Platelet Count 203 10^3/uL (150-450); Red Blood Count 3.12 10^6/uL (3.63-4.92); White Blood Count 10.5 10^3/uL (3.8-11.8)
[2024-05-01 05:46] LABS: Calcium 8.5 mg/dL (8.6-10.3); Creatinine, Serum 0.77 mg/dL (0.51-0.95); Potassium 4.1 mmol/L (3.5-5.0); eGFR CKD-EPI 75.1 (>60)
[2024-05-01] MEDS: Nystatin TOP POWDER 15 GM BTL TOPICAL SCH (12:07)
[2024-05-01 13:11] VITALS: BP 105/70
== END 2024-05-01 15:55 | disposition short-term general hospital (02) ==
LOC: EDHOLD 22:10 → ED 22:10 → MEDTELE 04-30 11:07
PROVIDERS: ADMIT Internal Medicine; ATTEND Internal Medicine